=== PATIENT | female | born 1965 | race African-American/Black ===

== ENCOUNTER 2018-08-06 10:07 | Inpatient (IN) | payer OTHER ==
[2018-08-06 12:21] VITALS: BMI 22.8
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
[2018-08-06] MEDS ORDERED: chlordiazePOXIDE HCL 25 MG CAPSULE PO PRN (13:47)
[2018-08-06] MEDS ORDERED: MAGNESIUM CITRATE 300 ML BOTTLE PO PRN (13:48)
[2018-08-06] MEDS ORDERED: IBUPROFEN 400 MG TABLET (FP) PO PRN (13:48)
[2018-08-06] MEDS ORDERED: ACETAMINOPHEN 325 MG TABLET (FP) PO PRN ×2 (13:48)
[2018-08-06] MEDS ORDERED: MELATONIN 5 MG TABLETS PO PRN (13:48)
[2018-08-06] MEDS ORDERED: METHOCARBAMOL 500 MG TABLET PO PRN (13:48)
[2018-08-06] MEDS ORDERED: MAGNESIUM HYDROX 2400MG/30ML ORAL SUSPENSION 30 ML CUP PO PRN (13:48)
[2018-08-06] MEDS ORDERED: MENTHOL/PHENOL 1 EACH UD MM PRN (13:48)
[2018-08-06] MEDS ORDERED: ALBUTEROL SO4 8 GM HFA INHALER IH PRN (13:51)
[2018-08-06] MEDS: TIOTROPIUM BROMIDE 2.5 MCG (SPIRIVA) RESPIMAT INHALER IH SCH (15:11)
[2018-08-06] MEDS: NICOTINE 7 MG/24 HOURS TOPICAL PATCH TD SCH (15:15)
[2018-08-06] MEDS: NICOTINE POLACRILEX 2 MG GUM BUC PRN (16:44)
[2018-08-06 18:35] LABS: HEMATOCRIT 40.1 % (32.4-45.2); HEMOGLOBIN 13.2 GM/dL (10.7-15.3); MCH 28.9 pg (25.7-33.7); MCHC 32.9 g/dl (32.0-36.0); MEAN CELL VOLUME 87.9 fl (80-96); MEAN PLT VOLUME 7.6 fl (7.5-11.1); PLATELET COUNT 388 K/MM3 (134-434); RBC 4.57 M/mm3 (3.60-5.2); RDW 14.6 % (11.6-15.6); WHITE BLOOD COUNT 8.6 K/mm3 (4.0-10.0)
[2018-08-06 18:42] LABS: ALBUMIN 4.2 g/dl (3.4-5.0); BILIRUBIN,TOTAL 0.7 mg/dL (0.2-1); BLOOD UREA NITROGEN 17.4 mg/dL (7-18); CALCIUM 9.4 mg/dL (8.5-10.1); CREATININE 0.8 mg/dL (0.55-1.3); POTASSIUM 4.4 mmol/L (3.5-5.1); TOT PROT 8.1 g/dl (6.4-8.2)
[2018-08-06 18:55] LABS: EPI CELLS 13.1 /HPF (0-5/HPF); HYALINE CASTS 12 /lpf (0-8); URINE APPEARANCE TURBID; URINE BILIRUBIN NEGATIVE (NEGATIVE); URINE COLOR YELLOW; URINE GLUCOSE (UA) NEGATIVE (NEGATIVE); URINE KETONE NEGATIVE (NEGATIVE); URINE LEUK ESTERASE NEGATIVE (NEGATIVE); URINE NITRITE NEGATIVE (NEGATIVE); URINE PROTEIN NEGATIVE (NEGATIVE); URINE UROBILINOGEN 0.2 mg/dL (0.2-1.0)
[2018-08-06 19:52] LABS: URINE RBC 4.2 /hpf (0-4); URINE WBC 10.2 /hpf (0-5)
[2018-08-06 19:53] LABS: URINE CRYSTALS AMORPHOUS URATES /hpf
[2018-08-06] MEDS: chlordiazePOXIDE HCL 25 MG CAPSULE PO SCH (22:31)
[2018-08-06] MEDS: THIAMINE HCL 100 MG TABLET (FP) PO SCH (22:31)
[2018-08-07] MEDS: chlordiazePOXIDE HCL 25 MG CAPSULE PO SCH ×4 (05:32→22:22)
[2018-08-07] MEDS ORDERED: ONDANSETRON *ODT* 4 MG TABLET SL PRN (09:44)
[2018-08-07] MEDS: NICOTINE 7 MG/24 HOURS TOPICAL PATCH TD SCH (10:28)
[2018-08-07] MEDS: PRENATAL VITAMINS W/ FOLIC ACID TABLET (FP) PO SCH (10:28)
[2018-08-07] MEDS: TIOTROPIUM BROMIDE 2.5 MCG (SPIRIVA) RESPIMAT INHALER IH SCH (10:28)
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
--- NOTE | 2018-08-07 11:39 | PN ---
[facility] CIWA - CIWA Score Nausea/Vomitin-No Nausea/No Vomiting Muscle Tremors: 3 Anxiety: 3 Agitation: 3 Paroxysmal Sweats: 3 Orientation: 0-Oriented Tacttile Disturbances: 0-None Auditory Disturbances: 0-None Visual Disturbances: 0-None Headache: 0-None Present CIWA-Ar Total Score: 12 S Progress Note (SOAP) Subjective: agitation anxiety sweats nausea body aches interrupted sleep Objective: 08/07/18 11:37 Vital Signs Temperature 98.1 F 08/07/18 10:14 Pulse Rate 73 08/07/18 10:14 Respiratory Rate 16 08/07/18 10:14 Blood Pressure 92/65 08/07/18 10:14 O2 Sat by Pulse Oximetry (%) Laboratory Tests 08/06/18 08/06/18 08/06/18 14:00 14:00 14:00 WBC 8.6 RBC 4.57 Hgb 13.2 Hct 40.1 MCV 87.9 MCH 28.9 MCHC 32.9 RDW 14.6 Plt Count 388 MPV 7.6 Sodium 135 L Potassium 4.4 Chloride 102 Carbon Dioxide 28 Anion Gap 6 L BUN 17.4 Creatinine 0.8 Est GFR (CKD-EPI)AfAm 98.24 Est GFR (CKD-EPI)NonAf 84.76 Random Glucose 99 Calcium 9.4 Total Bilirubin 0.7 AST 44 H ALT 33 Alkaline Phosphatase 82 Total Protein 8.1 Albumin 4.2 Urine Color Urine Appearance Urine pH Ur Specific [place] Urine Protein Urine Glucose (UA) Urine Ketones Urine Blood Urine Nitrite Urine Bilirubin Urine Urobilinogen Ur Leukocyte Esterase Urine WBC (Auto) Urine RBC (Auto) Urine Casts (Auto) U Epithel Cells (Auto) Urine Crystals (Auto) Urine Bacteria (Auto) HIV 1&2 Antibody Screen Negative HIV P24 Antigen Negative 08/06/18 16:39 WBC RBC Hgb Hct MCV MCH MCHC RDW Plt Count MPV Sodium Potassium Chloride Carbon Dioxide Anion Gap BUN Creatinine Est GFR (CKD-EPI)AfAm Est GFR (CKD-EPI)NonAf Random Glucose Calcium Total Bilirubin AST ALT Alkaline Phosphatase Total Protein Albumin Urine Color Yellow Urine Appearance Turbid Urine pH 5.0 Ur Specific [place] 1.024 Urine Protein Negative Urine Glucose (UA) Negative Urine Ketones Negative Urine Blood Trace Urine Nitrite Negative Urine Bilirubin Negative Urine Urobilinogen 0.2 Ur Leukocyte Esterase Negative Urine WBC (Auto) 10.2 Urine RBC (Auto) 4.2 Urine Casts (Auto) 12 U Epithel Cells (Auto) 13.1 Urine Crystals (Auto) Amorphous urates Urine Bacteria (Auto) 388.0 HIV 1&2 Antibody Screen HIV P24 Antigen labs noted repeat u/a pt denies having a UTI aaox3 ambulating no acute distress Assessment: 08/07/18 11:38 withdrawal sx Plan: continue detox increase fluids repeat u/a
[2018-08-07] MEDS: CITALOPRAM HYDROBROMIDE 10 MG TABLET (FP) PO SCH (15:02)
[2018-08-07] MEDS: NICOTINE POLACRILEX 2 MG GUM BUC PRN (15:59)
[2018-08-07] MEDS: BISMUTH SUBSALICYLATE 262 MG/15 ML BTL PO PRN (17:44)
[2018-08-07] MEDS: risperiDONE 2 MG TABLET PO SCH (22:22)
[2018-08-07] MEDS: MELATONIN 5 MG TABLETS PO PRN (22:22)
[2018-08-07] MEDS: THIAMINE HCL 100 MG TABLET (FP) PO SCH (22:23)
[2018-08-08] MEDS: chlordiazePOXIDE HCL 25 MG CAPSULE PO SCH ×3 (05:32→17:32)
[2018-08-08] MEDS: NICOTINE 7 MG/24 HOURS TOPICAL PATCH TD SCH (10:26)
[2018-08-08] MEDS: PRENATAL VITAMINS W/ FOLIC ACID TABLET (FP) PO SCH (10:26)
[2018-08-08] MEDS: CITALOPRAM HYDROBROMIDE 10 MG TABLET (FP) PO SCH (10:26)
[2018-08-08] MEDS: TIOTROPIUM BROMIDE 2.5 MCG (SPIRIVA) RESPIMAT INHALER IH SCH (10:26)
[2018-08-08] MEDS ORDERED: TRIMETHOBENZAMIDE HCL 300 MG CAPSULE PO PRN (11:17)
--- NOTE | 2018-08-08 11:30 | PN ---
[facility] CIWA - CIWA Score Nausea/Vomitin-Mild Nausea/No Vomiting Muscle Tremors: 3 Anxiety: 2 Agitation: 2 Paroxysmal Sweats: 2 Orientation: 0-Oriented Tacttile Disturbances: 0-None Auditory Disturbances: 0-None Visual Disturbances: 0-None Headache: 0-None Present CIWA-Ar Total Score: 10 S Progress Note (SOAP) Subjective: nausea vomiting sweats Objective: 08/08/18 11:30 Vital Signs Temperature 97.7 F 08/08/18 10:02 Pulse Rate 74 08/08/18 10:02 Respiratory Rate 18 08/08/18 10:02 Blood Pressure 114/53 L 08/08/18 10:02 O2 Sat by Pulse Oximetry (%) Laboratory Tests 08/06/18 08/06/18 08/06/18 12:38 14:00 14:00 WBC 8.6 RBC 4.57 Hgb 13.2 Hct 40.1 MCV 87.9 MCH 28.9 MCHC 32.9 RDW 14.6 Plt Count 388 MPV 7.6 Sodium 135 L Potassium 4.4 Chloride 102 Carbon Dioxide 28 Anion Gap 6 L BUN 17.4 Creatinine 0.8 Est GFR (CKD-EPI)AfAm 98.24 Est GFR (CKD-EPI)NonAf 84.76 Random Glucose 99 Calcium 9.4 Total Bilirubin 0.7 AST 44 H ALT 33 Alkaline Phosphatase 82 Total Protein 8.1 Albumin 4.2 Urine Color Urine Appearance Urine pH Ur Specific [place] Urine Protein Urine Glucose (UA) Urine Ketones Urine Blood Urine Nitrite Urine Bilirubin Urine Urobilinogen Ur Leukocyte Esterase Urine WBC (Auto) Urine RBC (Auto) Urine Casts (Auto) U Epithel Cells (Auto) Urine Crystals (Auto) Urine Bacteria (Auto) POC Urine HCG, Qual Negative RPR Titer HIV 1&2 Antibody Screen HIV P24 Antigen 08/06/18 08/06/18 08/06/18 14:00 14:00 16:39 WBC RBC Hgb Hct MCV MCH MCHC RDW Plt Count MPV Sodium Potassium Chloride Carbon Dioxide Anion Gap BUN Creatinine Est GFR (CKD-EPI)AfAm Est GFR (CKD-EPI)NonAf Random Glucose Calcium Total Bilirubin AST ALT Alkaline Phosphatase Total Protein Albumin Urine Color Yellow Urine Appearance Turbid Urine pH 5.0 Ur Specific [place] 1.024 Urine Protein Negative Urine Glucose (UA) Negative Urine Ketones Negative Urine Blood Trace Urine Nitrite Negative Urine Bilirubin Negative Urine Urobilinogen 0.2 Ur Leukocyte Esterase Negative Urine WBC (Auto) 10.2 Urine RBC (Auto) 4.2 Urine Casts (Auto) 12 U Epithel Cells (Auto) 13.1 Urine Crystals (Auto) Amorphous urates Urine Bacteria (Auto) 388.0 POC Urine HCG, Qual RPR Titer Nonreactive HIV 1&2 Antibody Screen Negative HIV P24 Antigen Negative aaox3 ambulating no acute distress Assessment: 08/08/18 11:30 withdrawal sx Plan: continue detox increase fluids zofran d/c tigan po ordered
[2018-08-08] MEDS: hydrOXYzine PAMOATE 25 MG CAPSULE (FP) PO PRN (17:32)
[2018-08-08] MEDS: NICOTINE POLACRILEX 2 MG GUM BUC PRN (19:09)
[2018-08-08] MEDS: chlordiazePOXIDE HCL 10 MG CAPSULE PO SCH (22:32)
[2018-08-08] MEDS: risperiDONE 2 MG TABLET PO SCH (22:32)
[2018-08-08] MEDS: THIAMINE HCL 100 MG TABLET (FP) PO SCH (22:32)
[2018-08-08] MEDS: MELATONIN 5 MG TABLETS PO PRN (22:33)
[2018-08-08] MEDS ORDERED: chlordiazePOXIDE HCL 10 MG CAPSULE PO PRN (23:00)
[2018-08-09] MEDS: chlordiazePOXIDE HCL 10 MG CAPSULE PO SCH ×4 (06:23→22:24)
[2018-08-09] MEDS ORDERED: TRIMETHOBENZAMIDE HCL 200MG/2ML INJ IM PRN (09:45)
[2018-08-09] MEDS: CITALOPRAM HYDROBROMIDE 10 MG TABLET (FP) PO SCH (10:42)
[2018-08-09] MEDS: TIOTROPIUM BROMIDE 2.5 MCG (SPIRIVA) RESPIMAT INHALER IH SCH (10:42)
[2018-08-09] MEDS: NICOTINE 7 MG/24 HOURS TOPICAL PATCH TD SCH (10:42)
[2018-08-09] MEDS: PRENATAL VITAMINS W/ FOLIC ACID TABLET (FP) PO SCH (10:42)
[2018-08-09] MEDS: hydrOXYzine PAMOATE 25 MG CAPSULE (FP) PO PRN (10:47)
--- NOTE | 2018-08-09 12:13 | PN ---
[facility] CIWA - CIWA Score Nausea/Vomitin-Mild Nausea/No Vomiting Muscle Tremors: 2 Anxiety: 1-Mildly Anxious Agitation: 2 Paroxysmal Sweats: 2 Orientation: 0-Oriented Tacttile Disturbances: 0-None Auditory Disturbances: 0-None Visual Disturbances: 0-None Headache: 0-None Present CIWA-Ar Total Score: 8 [facility] Progress Note (SOAP) Subjective: nausea interrupted sleep Objective: 08/09/18 12:13 Vital Signs Temperature 97.9 F 08/09/18 09:22 Pulse Rate 74 08/09/18 09:22 Respiratory Rate 18 08/09/18 09:22 Blood Pressure 119/63 08/09/18 09:22 O2 Sat by Pulse Oximetry (%) aaox3 ambulating no acute distress Assessment: 08/09/18 12:14 mild withdrawal sx Plan: continue detox tigan IM ordered increase fluids
[2018-08-09] MEDS: risperiDONE 2 MG TABLET PO SCH (22:24)
[2018-08-09] MEDS: THIAMINE HCL 100 MG TABLET (FP) PO SCH (22:24)
[2018-08-09] MEDS: MELATONIN 5 MG TABLETS PO PRN (22:25)
[2018-08-09] MEDS: MAG HYDROX/AL HYDROX/SIMETH 30 ML UNIT-DOSE CUP PO PRN (22:26)
[2018-08-10 10:02] LABS: URINE APPEARANCE CLEAR; URINE BILIRUBIN NEGATIVE (NEGATIVE); URINE COLOR YELLOW; URINE GLUCOSE (UA) NEGATIVE (NEGATIVE); URINE KETONE NEGATIVE (NEGATIVE); URINE LEUK ESTERASE NEGATIVE (NEGATIVE); URINE NITRITE NEGATIVE (NEGATIVE); URINE PROTEIN NEGATIVE (NEGATIVE); URINE UROBILINOGEN 0.2 mg/dL (0.2-1.0)
[2018-08-10] MEDS: NICOTINE 7 MG/24 HOURS TOPICAL PATCH TD SCH (10:34)
[2018-08-10] MEDS: CITALOPRAM HYDROBROMIDE 10 MG TABLET (FP) PO SCH (10:35)
[2018-08-10] MEDS: TIOTROPIUM BROMIDE 2.5 MCG (SPIRIVA) RESPIMAT INHALER IH SCH (10:35)
[2018-08-10] MEDS: PRENATAL VITAMINS W/ FOLIC ACID TABLET (FP) PO SCH (10:35)
[2018-08-10] MEDS: chlordiazePOXIDE HCL 10 MG CAPSULE PO SCH ×2 (10:36→23:05)
--- NOTE | 2018-08-10 11:44 | PN ---
[facility] CIWA - CIWA Score Nausea/Vomitin-No Nausea/No Vomiting Muscle Tremors: 1-None Visible, but [place] Anxiety: 1-Mildly Anxious Agitation: 1-Slight > Activity Paroxysmal Sweats: No Perspiration Orientation: 0-Oriented Tacttile Disturbances: 0-None Auditory Disturbances: 0-None Visual Disturbances: 0-None Headache: 0-None Present CIWA-Ar Total Score: 3 BHS Progress Note (SOAP) Subjective: sweats Objective: 08/10/18 11:43 Vital Signs Temperature 99.0 F 08/10/18 09:56 Pulse Rate 87 08/10/18 09:56 Respiratory Rate 18 08/10/18 09:56 Blood Pressure 100/68 08/10/18 09:56 O2 Sat by Pulse Oximetry (%) aaox3 ambulating no acute distress Assessment: 08/10/18 11:44 mild withdrawal sx Plan: continue detox increase fluids d/c in am
[2018-08-10] MEDS: MAG HYDROX/AL HYDROX/SIMETH 30 ML UNIT-DOSE CUP PO PRN ×2 (15:35→22:20)
[2018-08-10] MEDS: BISMUTH SUBSALICYLATE 262 MG/15 ML BTL PO PRN (20:14)
[2018-08-10] MEDS: risperiDONE 2 MG TABLET PO SCH (21:33)
[2018-08-10] MEDS: MELATONIN 5 MG TABLETS PO PRN (21:33)
[2018-08-10] MEDS: THIAMINE HCL 100 MG TABLET (FP) PO SCH (23:05)
[2018-08-11 07:01] VITALS: BP 114/68; PULSE 74; TEMP 97.7
--- NOTE | 2018-08-11 12:02 | PN ---
[facility] CIWA - CIWA Score Nausea/Vomitin-No Nausea/No Vomiting Muscle Tremors: 1-None Visible, but [place] Anxiety: 1-Mildly Anxious Agitation: 0-Normal Activity Paroxysmal Sweats: No Perspiration Orientation: 0-Oriented Tacttile Disturbances: 0-None Auditory Disturbances: 0-None Visual Disturbances: 0-None Headache: 0-None Present CIWA-Ar Total Score: 2 BHS Progress Note (SOAP) Subjective: Denies any complaint Objective: 08/11/18 12:02 A & O x 3 Gait steady, no acute distress noted Vital Signs Temperature 97.7 F 08/11/18 06:00 Pulse Rate 74 08/11/18 06:00 Respiratory Rate 16 08/11/18 06:00 Blood Pressure 114/68 08/11/18 06:00 O2 Sat by Pulse Oximetry (%) Assessment: 08/11/18 12:03 completed detox Plan: For discharge
--- NOTE | 2018-08-11 12:06 | DS ---
[facility] Detox Discharge Summary Admission Date: 08/06/18 Discharge Date: 08/11/18 - History Additional Comments: Pt completed detox successfully. Going to [facility] for aftercare rehab Denies any complaints On psych meds only - Physical Exam Results Vital Signs: Vital Signs Temperature 97.7 F 08/11/18 06:00 Pulse Rate 74 08/11/18 06:00 Respiratory Rate 16 08/11/18 06:00 Blood Pressure 114/68 08/11/18 06:00 O2 Sat by Pulse Oximetry (%) Pertinent Admission Physical Exam Findings: withdrawal sx - Treatment Hospital Course: Detox Protocol Followed, Detoxed Safely, Responded well, Discharged Condition Good, Rehab Referral Accepted Patient has Accepted a Rehab Referral to: [facility] - Medication Discharge Medications: Ambulatory Orders Citalopram Hydrobromide [Celexa -] 10 mg PO DAILY 08/06/18 Risperidone [Risperdal] 2 mg PO HS 08/06/18 - AMA Did Patient Leave Against Medical Advice: No
== END 2018-08-11 09:16 | disposition home or self-care (01) | DRG 774 ==
LOC: YASAS 10:07 → Y6N 14:04
PROVIDERS: ADMIT Surgery; ATTEND Surgery
PROC: HZ2ZZZZ Detoxification Services for Substance Abuse Treatment (ICD-10-PCS; principal; 2018-08-06)
DX: F10.230 Alcohol dependence with withdrawal, uncomplicated (principal); F14.20 Cocaine dependence, uncomplicated; F17.210 Nicotine dependence, cigarettes, uncomplicated; F31.9 Bipolar disorder, unspecified; F19.280 Other psychoactive substance dependence with psychoactive substance-induced anxiety disorder; F19.282 Other psychoactive substance dependence with psychoactive substance-induced sleep disorder; K21.9 Gastro-esophageal reflux disease without esophagitis; J44.9 Chronic obstructive pulmonary disease, unspecified; D57.3 Sickle-cell trait; R76.11 Nonspecific reaction to tuberculin skin test without active tuberculosis; R63.4 Abnormal weight loss; Z86.69 Personal history of other diseases of the nervous system and sense organs; Z91.5 Personal history of self-harm
CPT/HCPCS: 36415; 71045-TC-FY; 80053; 81003; 81025; 85027; 86593; 87389; Q0162

== ENCOUNTER 2018-08-28 19:22 | Inpatient (IN) | payer OTHER ==
[2018-08-28 22:44] VITALS: BMI 24.3
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
[2018-08-29] MEDS ORDERED: BISMUTH SUBSALICYLATE 524 MG/30 ML UD PO PRN (03:15)
[2018-08-29] MEDS ORDERED: IBUPROFEN 400 MG TABLET (FP) PO PRN (03:15)
[2018-08-29] MEDS ORDERED: ACETAMINOPHEN 325 MG TABLET (FP) PO PRN ×2 (03:15)
[2018-08-29] MEDS ORDERED: MAGNESIUM CITRATE 300 ML BOTTLE PO PRN (03:15)
[2018-08-29] MEDS ORDERED: METHOCARBAMOL 500 MG TABLET PO PRN (03:15)
[2018-08-29] MEDS ORDERED: MAGNESIUM HYDROX 2400MG/30ML ORAL SUSPENSION 30 ML CUP PO PRN (03:15)
[2018-08-29] MEDS ORDERED: MENTHOL/PHENOL 1 EACH UD MM PRN (03:15)
[2018-08-29] MEDS ORDERED: chlordiazePOXIDE HCL 25 MG CAPSULE PO PRN (03:15)
[2018-08-29] MEDS ORDERED: hydrOXYzine PAMOATE 25 MG CAPSULE (FP) PO PRN (03:15)
[2018-08-29] MEDS ORDERED: MAG HYDROX/AL HYDROX/SIMETH 30 ML UNIT-DOSE CUP PO PRN (03:15)
[2018-08-29] MEDS: chlordiazePOXIDE HCL 25 MG CAPSULE PO SCH ×4 (04:10→22:30)
[2018-08-29] MEDS: PRENATAL VITAMINS W/ FOLIC ACID TABLET (FP) PO SCH (10:31)
[2018-08-29] MEDS ORDERED: PROCHLORPERAZINE MALEATE 5 MG TABLET PO PRN (14:43)
[2018-08-29] MEDS: CITALOPRAM HYDROBROMIDE 10 MG TABLET (FP) PO SCH (14:54)
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
--- NOTE | 2018-08-29 16:57 | PN ---
S CIWA - CIWA Score Nausea/Vomitin Muscle Tremors: None Anxiety: 2 Agitation: 0-Normal Activity Paroxysmal Sweats: 3 Orientation: 0-Oriented Tacttile Disturbances: 2-Mild Itch/Numbness/Burn Auditory Disturbances: 2-Mild Harshness/Frighten Visual Disturbances: 1-Very Mild Sensitivity Headache: 0-None Present CIWA-Ar Total Score: 15 BHS Progress Note (SOAP) Subjective: Body Aches, Sweating, Vomiting, Fatigue, Diarrhea. Objective: PATIENT A & O X 3. IN NO ACUTE DISTRESS. 08/29/18 16:54 Vital Signs Temperature 96.6 F L 08/29/18 13:50 Pulse Rate 72 08/29/18 13:50 Respiratory Rate 18 08/29/18 13:50 Blood Pressure 99/74 08/29/18 13:50 O2 Sat by Pulse Oximetry (%) Laboratory Tests 08/29/18 08:30 POC Urine HCG, Qual Negative DETOX ADMISSION LAB RESULTS PENDING. 08/29/18 16:55 Assessment: 08/29/18 16:55 WITHDRAWAL SYMPTOMS. Plan: CONTINUE DETOX. INCREASE DAILY PO WATER INTAKE. PRN COMPAZINE PO FOR NAUSEA / VOMITING. PRN PEPTO-BISMOL PO FOR DIARRHEA.
[2018-08-29] MEDS ORDERED: risperiDONE 2 MG TABLET PO SCH (22:00)
[2018-08-29] MEDS: risperiDONE 1 MG TABLET (FP) PO SCH (22:29)
[2018-08-29] MEDS: THIAMINE HCL 100 MG TABLET (FP) PO SCH (22:29)
[2018-08-29] MEDS: MELATONIN 5 MG TABLETS PO PRN (22:32)
[2018-08-30] MEDS: chlordiazePOXIDE HCL 25 MG CAPSULE PO SCH ×4 (06:41→23:48)
[2018-08-30] MEDS: risperiDONE 1 MG TABLET (FP) PO SCH ×2 (10:28→21:29)
[2018-08-30] MEDS: CITALOPRAM HYDROBROMIDE 10 MG TABLET (FP) PO SCH (10:28)
[2018-08-30] MEDS: PRENATAL VITAMINS W/ FOLIC ACID TABLET (FP) PO SCH (10:28)
--- NOTE | 2018-08-30 10:37 | EKG ---
Test Reason : Blood Pressure : / mmHG Vent. Rate : 068 BPM Atrial Rate : 068 BPM P-R Int : 172 ms QRS Dur : 090 ms QT Int : 450 ms P-R-T Axes : 067 067 070 degrees QTc Int : 478 ms NORMAL SINUS RHYTHM NO PREVIOUS ECGS AVAILABLE Confirmed by ASCENCION OLVERA MD ([id number]) on 08/30/2018 10:36:34 AM Referred By: EVELINA ANDREWS Confirmed By:ASCENCION OLVERA MD
--- NOTE | 2018-08-30 13:10 | PN ---
S CIWA - CIWA Score Nausea/Vomitin-Mild Nausea/No Vomiting Muscle Tremors: 3 Anxiety: 2 Agitation: 3 Paroxysmal Sweats: 1-Minimal Palms Moist Orientation: 0-Oriented Tacttile Disturbances: 0-None Auditory Disturbances: 0-None Visual Disturbances: 0-None Headache: 1-Very Mild CIWA-Ar Total Score: 11 BHS Progress Note (SOAP) Subjective: feeling better today tolerate food and fluid better today no vomiting mild nausea Objective: 08/30/18 13:10 Vital Signs Temperature 98.5 F 08/30/18 09:51 Pulse Rate 65 08/30/18 09:51 Respiratory Rate 18 08/30/18 09:51 Blood Pressure 96/66 08/30/18 09:51 O2 Sat by Pulse Oximetry (%) Laboratory Last Values POC Urine HCG, Qual Negative 08/29/18 08:30 08/30/18 13:10 lab see 07/201808/30/18 13:12 Assessment: 08/30/18 13:12 alcohol withdrawal sx Plan: continue alcohol detox
[2018-08-30] MEDS ORDERED: NICOTINE 7 MG/24 HOURS TOPICAL PATCH TD SCH (13:30)
[2018-08-30] MEDS: THIAMINE HCL 100 MG TABLET (FP) PO SCH (21:29)
[2018-08-30] MEDS: MELATONIN 5 MG TABLETS PO PRN (21:30)
[2018-08-31] MEDS ORDERED: chlordiazePOXIDE HCL 10 MG CAPSULE PO PRN
[2018-08-31] MEDS ORDERED: chlordiazePOXIDE HCL 10 MG CAPSULE PO SCH (05:00)
[2018-08-31 09:04] VITALS: BP 109/72; PULSE 69; TEMP 97.2
--- NOTE | 2018-08-31 18:29 | DS ---
[facility] Detox Discharge Summary Admission Date: 08/29/18 Discharge Date: 08/31/18 - History Present History: Alcohol Dependence, Cannabis Dependence, Cocaine Dependence Additional Comments: PATIENT RETURNING HOME TO ATTEND TO PERSONAL MATTERS FOR TIME BEING. PATIENT ADVISED TO CONSIDER LOCAL 12-STEP / NA / AA OUTPATIENT SUPPORT GROUP PROGRAMS FOR AFTERCARE. PATIENT VERBALIZED UNDERSTANDING OF RECOMMENDATION. PATIENT WAS DISCHARGED FROM DETOX UNIT IN STABLE MEDICAL CONDITION. Pertinent Past History: History Of Positive PPD, Nicotine Dependence, Depression, History Of Frost's Palsy, History Of Sickle Cell Trait, G.E.R.D., History Of Arthritis Of Right Knee, C.O.P.D., Bipolar Disorder, Insomnia. - Physical Exam Results Vital Signs: Vital Signs Temperature 97.2 F L 08/31/18 09:04 Pulse Rate 69 08/31/18 09:04 Respiratory Rate 18 08/31/18 09:04 Blood Pressure 109/72 08/31/18 09:04 O2 Sat by Pulse Oximetry (%) Pertinent Admission Physical Exam Findings: WITHDRAWAL SYMPTOMS. Laboratory Tests 08/29/18 08:30 POC Urine HCG, Qual Negative PATIENT REFUSED TO HAVE ADMISSION LABS DRAWN. - Treatment Hospital Course: Detox Protocol Followed, Detoxed Safely, Responded well, Discharged Condition Good Patient has Accepted a Rehab Referral to: PT. ADVISED TO CONSIDER LOCAL 12-STEP / NA / AA OUTPATIENT SUPPORT GROUPS. - Medication Discharge Medications: Ambulatory Orders Citalopram Hydrobromide [Celexa -] 10 mg PO DAILY 08/06/18 Risperidone [Risperdal] 2 mg PO HS 08/06/18 - Diagnosis (1) Alcohol dependence with uncomplicated withdrawal Status: Acute (2) COPD (chronic obstructive pulmonary disease) Status: Chronic Qualifiers: COPD type: unspecified COPD Qualified Code(s): J44.9 - Chronic obstructive pulmonary disease, unspecified (3) Cannabis dependence Status: Chronic (4) Cocaine dependence Status: Chronic Qualifiers: Substance use status: uncomplicated Qualified Code(s): F14.20 - Cocaine dependence, uncomplicated (5) Depression Status: Chronic Qualifiers: Depression Type: unspecified Qualified Code(s): F32.9 - Major depressive disorder, single episode, unspecified (6) GERD (gastroesophageal reflux disease) Status: Chronic Qualifiers: Esophagitis presence: esophagitis presence not specified Qualified Code(s) : K21.9 - Gastro-esophageal reflux disease without esophagitis (7) History of Frost's palsy Status: Chronic (8) Nicotine dependence Status: Chronic Qualifiers: Nicotine product type: cigarettes Substance use status: uncomplicated Qualified Code(s): F17.210 - Nicotine dependence, cigarettes, uncomplicated (9) PPD positive Status: Chronic (10) Sickle cell trait Status: Chronic (11) Bipolar disorder Status: Chronic Qualifiers: Active/Remission status: remission status unspecified Qualified Code(s): F31.9 - Bipolar disorder, unspecified (12) Insomnia Status: Chronic Qualifiers: Insomnia type: unspecified Qualified Code(s): G47.00 - Insomnia, unspecified (13) Substance induced mood disorder Status: Chronic - AMA Did Patient Leave Against Medical Advice: No
[2018-09-01] MEDS ORDERED: chlordiazePOXIDE HCL 10 MG CAPSULE PO SCH (05:00)
[2018-09-02] MEDS ORDERED: chlordiazePOXIDE HCL 10 MG CAPSULE PO ONE (05:00)
== END 2018-08-31 09:13 | disposition home or self-care (01) | DRG 774 ==
LOC: YASAS 19:22 → Y3N 08-29 03:15
PROVIDERS: ADMIT Surgery; ATTEND Surgery
PROC: HZ2ZZZZ Detoxification Services for Substance Abuse Treatment (ICD-10-PCS; principal; 2018-08-29)
DX: F10.230 Alcohol dependence with withdrawal, uncomplicated (principal); F14.20 Cocaine dependence, uncomplicated; F12.20 Cannabis dependence, uncomplicated; F17.210 Nicotine dependence, cigarettes, uncomplicated; F19.24 Other psychoactive substance dependence with psychoactive substance-induced mood disorder; F31.9 Bipolar disorder, unspecified; F32.9 Major depressive disorder, single episode, unspecified; G47.00 Insomnia, unspecified; J44.9 Chronic obstructive pulmonary disease, unspecified; K21.9 Gastro-esophageal reflux disease without esophagitis; D57.3 Sickle-cell trait; Z86.69 Personal history of other diseases of the nervous system and sense organs; Z91.5 Personal history of self-harm; Z88.0 Allergy status to penicillin
CPT/HCPCS: 81025; 93005; 93010; J2794

== ENCOUNTER 2018-10-30 09:49 | Inpatient (IN) | payer OTHER ==
[2018-10-30 12:02] VITALS: BMI 21.2
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
[2018-10-30] MEDS ORDERED: MENTHOL/PHENOL 1 EACH UD MM PRN (14:51)
[2018-10-30] MEDS ORDERED: MAGNESIUM CITRATE 300 ML BOTTLE PO PRN (14:51)
[2018-10-30] MEDS ORDERED: IBUPROFEN 400 MG TABLET (FP) PO PRN (14:51)
[2018-10-30] MEDS ORDERED: BISMUTH SUBSALICYLATE 524 MG/30 ML UD PO PRN (14:51)
[2018-10-30] MEDS ORDERED: MAGNESIUM HYDROX 2400MG/30ML ORAL SUSPENSION 30 ML CUP PO PRN (14:51)
[2018-10-30] MEDS ORDERED: ACETAMINOPHEN 325 MG TABLET (FP) PO PRN ×2 (14:51)
[2018-10-30] MEDS ORDERED: hydrOXYzine PAMOATE 25 MG CAPSULE (FP) PO PRN (14:51)
[2018-10-30] MEDS ORDERED: MAG HYDROX/AL HYDROX/SIMETH 30 ML UNIT-DOSE CUP PO PRN (14:51)
[2018-10-30] MEDS ORDERED: diazePAM 5 MG TABLET PO PRN (14:53)
[2018-10-30] MEDS: NICOTINE 7 MG/24 HOURS TOPICAL PATCH TD SCH (16:40)
[2018-10-30] MEDS: MELATONIN 5 MG TABLETS PO PRN (22:03)
[2018-10-30] MEDS: THIAMINE HCL 100 MG TABLET (FP) PO SCH (22:03)
[2018-10-30] MEDS: diazePAM 5 MG TABLET PO SCH (22:03)
[2018-10-31] MEDS: diazePAM 5 MG TABLET PO SCH (05:29)
[2018-10-31] MEDS: NICOTINE 7 MG/24 HOURS TOPICAL PATCH TD SCH (10:51)
[2018-10-31] MEDS: PRENATAL VITAMINS W/ FOLIC ACID TABLET (FP) PO SCH (10:52)
[2018-10-31] MEDS ORDERED: chlordiazePOXIDE HCL 25 MG CAPSULE PO PRN (11:56)
--- NOTE | 2018-10-31 12:01 | PN ---
[facility] CIWA - CIWA Score Nausea/Vomitin Muscle Tremors: 2 Anxiety: 3 Agitation: 3 Paroxysmal Sweats: 1-Minimal Palms Moist Orientation: 0-Oriented Tacttile Disturbances: 1-Very Mild Itch/Numbness Auditory Disturbances: 0-None Visual Disturbances: 0-None Headache: 1-Very Mild CIWA-Ar Total Score: 13 [facility] Progress Note (SOAP) Subjective: alert,irritabl,anxious,interrupted sleep,tremor Objective: 10/31/18 11:59 Vital Signs Temperature 97.8 F 10/31/18 09:19 Pulse Rate 71 10/31/18 09:19 Respiratory Rate 18 10/31/18 09:19 Blood Pressure 92/55 L 10/31/18 09:19 O2 Sat by Pulse Oximetry (%) 10/31/18 12:00 labs pending Assessment: 10/31/18 12:00 withdrawal symptom Plan: continue detox,regimen chnged from valum to librium by patient's request
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
[2018-10-31 12:27] LABS: HEMATOCRIT 38.3 % (32.4-45.2); HEMOGLOBIN 12.6 GM/dL (10.7-15.3); MEAN CELL VOLUME 87.8 fl (80-96); MEAN PLT VOLUME 7.4 fl (7.5-11.1); PLATELET COUNT 454 K/MM3 (134-434); RBC 4.36 M/mm3 (3.60-5.2); RDW 13.9 % (11.6-15.6)
[2018-10-31 12:37] LABS: ALBUMIN 3.3 g/dl (3.4-5.0); BILIRUBIN,TOTAL 0.3 mg/dL (0.2-1); BLOOD UREA NITROGEN 11.5 mg/dL (7-18); CREATININE 0.8 mg/dL (0.55-1.3); POTASSIUM 4.4 mmol/L (3.5-5.1); TOT PROT 6.6 g/dl (6.4-8.2)
[2018-10-31] MEDS: chlordiazePOXIDE HCL 25 MG CAPSULE PO SCH ×2 (17:25→22:17)
[2018-10-31] MEDS: risperiDONE 2 MG TABLET PO SCH (22:16)
[2018-10-31] MEDS: THIAMINE HCL 100 MG TABLET (FP) PO SCH (22:16)
[2018-10-31] MEDS: MELATONIN 5 MG TABLETS PO PRN (22:19)
[2018-11-01] MEDS: chlordiazePOXIDE HCL 25 MG CAPSULE PO SCH ×4 (05:59→22:35)
[2018-11-01] MEDS ORDERED: diazePAM 5 MG TABLET PO SCH (06:00)
[2018-11-01] MEDS: CITALOPRAM HYDROBROMIDE 10 MG TABLET (FP) PO SCH (10:18)
[2018-11-01] MEDS: PRENATAL VITAMINS W/ FOLIC ACID TABLET (FP) PO SCH (10:18)
[2018-11-01] MEDS: risperiDONE 1 MG TABLET (FP) PO SCH (10:18)
[2018-11-01] MEDS: NICOTINE 7 MG/24 HOURS TOPICAL PATCH TD SCH (10:19)
--- NOTE | 2018-11-01 12:22 | PN ---
[facility] CIWA - CIWA Score Nausea/Vomitin-Mild Nausea/No Vomiting Muscle Tremors: 1-None Visible, but [place] Anxiety: 3 Agitation: 3 Paroxysmal Sweats: No Perspiration Orientation: 0-Oriented Tacttile Disturbances: 0-None Auditory Disturbances: 0-None Visual Disturbances: 0-None Headache: 2-Mild CIWA-Ar Total Score: 10 S Progress Note (SOAP) Subjective: alert,irritable,anxious,interrupted sleep,pain in the bidy Objective: 11/01/18 12:20 Vital Signs Temperature 97.4 F L 11/01/18 09:43 Pulse Rate 64 11/01/18 09:43 Respiratory Rate 18 11/01/18 09:43 Blood Pressure 106/71 11/01/18 09:43 O2 Sat by Pulse Oximetry (%) Laboratory Last Values WBC 7.0 K/mm3 (4.0-10.0) 10/31/18 08:30 RBC 4.36 M/mm3 (3.60-5.2) 10/31/18 08:30 Hgb 12.6 GM/dL (10.7-15.3) 10/31/18 08:30 Hct 38.3 % (32.4-45.2) 10/31/18 08:30 MCV 87.8 fl (80-96) 10/31/18 08:30 MCH 29.0 pg (25.7-33.7) 10/31/18 08:30 MCHC 33.0 g/dl (32.0-36.0) 10/31/18 08:30 RDW 13.9 % (11.6-15.6) 10/31/18 08:30 Plt Count 454 K/MM3 (134-434) H 10/31/18 08:30 MPV 7.4 fl (7.5-11.1) L 10/31/18 08:30 Sodium 144 mmol/L (136-145) 10/31/18 08:30 Potassium 4.4 mmol/L (3.5-5.1) 10/31/18 08:30 Chloride 112 mmol/L (98-107) H 10/31/18 08:30 Carbon Dioxide 26 mmol/L (21-32) 10/31/18 08:30 Anion Gap 6 MMOL/L (8-16) L 10/31/18 08:30 BUN 11.5 mg/dL (7-18) 10/31/18 08:30 Creatinine 0.8 mg/dL (0.55-1.3) 10/31/18 08:30 Est GFR (CKD-EPI)AfAm 98.24 10/31/18 08:30 Est GFR (CKD-EPI)NonAf 84.76 10/31/18 08:30 Random Glucose 70 mg/dL (74-106) L 10/31/18 08:30 Calcium 9.0 mg/dL (8.5-10.1) 10/31/18 08:30 Total Bilirubin 0.3 mg/dL (0.2-1) 10/31/18 08:30 AST 18 U/L (15-37) 10/31/18 08:30 ALT 13 U/L (13-61) 10/31/18 08:30 Alkaline Phosphatase 73 U/L (45-117) 10/31/18 08:30 Total Protein 6.6 g/dl (6.4-8.2) 10/31/18 08:30 Albumin 3.3 g/dl (3.4-5.0) L 10/31/18 08:30 POC Urine HCG, Qual Negative 10/30/18 12:46 RPR Titer Nonreactive (NONREACTIVE) 10/31/18 08:30 Assessment: 11/01/18 12:21 withdrawal symptom Plan: continue detox librium regimen,psychiatric reevaluation for medication adjustment
--- NOTE | 2018-11-01 14:56 | PN ---
[facility] Progress Note Note: Psychiatric nurse practitioner note: Patient requesting an explanation as to why her psychotropic medications were not ordered at her original dose. Dr. Cervantes note read and appreciated. Patient made aware of the risk of falls and sedation when accepting certain types of psychotropic medications with Librium. Test Carrier informed patient that he can increase her risperdal dose to 3mg this evening/ Patient refused. Stated to publications writer, " no its ok. Now i know why my medications were lowered. it makes sense. You can keep it at what it is."
--- NOTE | 2018-11-01 17:48 | PN ---
Psychiatric Progress Note Vital Signs: Vital Signs Period Temp Pulse Resp BP Sys/Guevara Pulse Ox Last 24 Hr 96.8 F-99.4 F 58-74 16-18 95-114/68-80 Date of Session: 11/01/18 Chief Complaint:: " What happen to my monica." HPI: Patient admitted to for detoxification from alcohol, cocaine, cannabis , nicotine dependence. Patient concerned about her latuda medication. ROS: Patient calm and cooperative. Alert + Oriented X3. Current Medications: Active Medications Generic Name Dose Route Start Last Admin Trade Name Freq PRN Reason Stop Dose Admin Acetaminophen 650 mg 10/30/18 14:51 Tylenol - PO Q6H PRN PAIN LEVEL 4 - 6 Acetaminophen 650 mg 10/30/18 14:51 Tylenol - PO Q6H PRN FEVER Al Hydroxide/Mg Hydroxide 30 ml 10/30/18 14:51 Mylanta Oral Suspension - PO Q6H PRN DYSPEPSIA Bismuth Subsalicylate 524 mg 10/30/18 14:51 Pepto-Bismol - PO Q1H PRN DIARRHEA Chlordiazepoxide HCl 10 mg 11/03/18 05:00 Librium - PO 11/03/18 23:01 [id number] Chlordiazepoxide HCl 10 mg 11/04/18 05:00 Librium - PO 11/04/18 17:01 Q12H JIA Chlordiazepoxide HCl 10 mg 11/03/18 00:00 Librium - PO 11/04/18 00:00 Q4H PRN WITHDRAWAL(CONT SUBST) Chlordiazepoxide HCl 10 mg 11/05/18 05:00 Librium - PO 11/05/18 05:01 ONCE@0500 ONE Chlordiazepoxide HCl 50 mg 10/31/18 17:00 11/01/18 17:09 Librium - PO 11/01/18 23:01 50 mg [id number] JIA Administration Chlordiazepoxide HCl 25 mg 11/02/18 05:00 Librium - PO 11/02/18 23:01 [id number] JIA Chlordiazepoxide HCl 25 mg 10/31/18 11:56 Librium - PO 11/02/18 23:59 Q4H PRN WITHDRAWAL(CONT SUBST) Citalopram Hydrobromide 10 mg 11/01/18 10:00 11/01/18 10:18 Celexa - PO 10 mg DAILY JIA Administration Eucalyptus/Menthol/Phenol/Sorbitol 1 each 10/30/18 14:51 Cepastat Lozenge - MM 11/05/18 14:51 Q4H PRN SORE THROAT Hydroxyzine Pamoate 25 mg 10/30/18 14:51 Vistaril - PO 11/05/18 14:51 Q6H PRN For Anxiety Ibuprofen 400 mg 10/30/18 14:51 Motrin - PO Q6H PRN PAIN LEVEL 1 - 3 Magnesium Citrate 300 ml 10/30/18 14:51 Citroma - PO Q48H PRN CONSTIPATION Magnesium Hydroxide 30 ml 10/30/18 14:51 Milk Of Magnesia - PO PRN PRN CONSTIPATION Melatonin 5 mg 10/30/18 14:51 10/31/18 22:19 Melatonin PO 5 mg HS PRN Administration INSOMNIA Nicotine 7 mg 10/30/18 16:15 11/01/18 10:19 Nicoderm Patch - TD 7 mg DAILY JIA Administration Multivit/Folic Acid/Iron 1 tab 10/31/18 10:00 11/01/18 10:18 Vitamins (Sjr) - PO 1 tab DAILY JIA Administration Risperidone 2 mg 10/31/18 22:00 10/31/18 22:16 Risperdal - PO 2 mg HS JIA Administration Risperidone 1 mg 11/01/18 10:00 11/01/18 10:18 Risperdal - PO 1 mg DAILY JIA Administration Thiamine HCl 100 mg 10/30/18 22:00 10/31/18 22:16 Vitamin B1 - PO 100 mg HS JIA Administration Medication(s) Change(s): No. Current Side Effect: No Lab tests ordered: No Lab tests reviewed: Yes Provider note:: Patient requesting an explanation as to why latuda was not orderd. Dr. Cervantes note read and appreciated. Patient made aware of the risk of falls and sedation when accepting certain types of psychotropic medications with Librium. Director Of Sales Marketing informed patient that he can increase her risperdal dose to 3mg this evening and latuda can now be added as she has tolerated current medications with librium. Patient refused. Stated to bond underwriter, " no its ok. Now i know why my medications were lowered. it makes sense. You can keep it at what it is. I will resume my medications when i get home." No depressive, manic, or psychotic symptoms noted. Will continue to monitor. Total face to face time:: 15 Mental Status Exam - Mental Status Exam Alert and Oriented to: Time, Place, Person Cognitive Function: Good Patient Appearance: Well Groomed Mood: Euthymic Affect: Mood Congruent Patient Behavior: Cooperative Speech Pattern: Appropriate Voice Loudness: Normal Thought Process: Goal Oriented Thought Disorder: Not Present Hallucinations: Denies Suicidal Ideation: Denies Homicidal Ideation: Denies Insight/Judgement: Poor Sleep: Fair Appetite: Fair Muscle strength/Tone: Normal Gait/Station: Normal Psychiatric Treatment Plan - Problem List (1) Alcohol dependence with uncomplicated withdrawal Current Visit: Yes (2) Bipolar disorder Current Visit: Yes Qualifiers: Active/Remission status: remission status unspecified Qualified Code(s): F31.9 - Bipolar disorder, unspecified (3) Cannabis dependence Current Visit: Yes (4) Cocaine dependence Current Visit: Yes Qualifiers: Substance use status: uncomplicated Qualified Code(s): F14.20 - Cocaine dependence, uncomplicated (5) Insomnia Current Visit: Yes Qualifiers: Insomnia type: unspecified Qualified Code(s): G47.00 - Insomnia, unspecified Comment: By history. (6) Nicotine dependence Current Visit: Yes Qualifiers: Nicotine product type: cigarettes Substance use status: uncomplicated Qualified Code(s): F17.210 - Nicotine dependence, cigarettes, uncomplicated (7) Substance induced mood disorder Current Visit: Yes
[2018-11-01] MEDS: risperiDONE 2 MG TABLET PO SCH (22:10)
[2018-11-01] MEDS: THIAMINE HCL 100 MG TABLET (FP) PO SCH (22:10)
[2018-11-01] MEDS: MELATONIN 5 MG TABLETS PO PRN (22:10)
[2018-11-02] MEDS: chlordiazePOXIDE HCL 25 MG CAPSULE PO SCH ×2 (05:31→10:44)
[2018-11-02] MEDS ORDERED: diazePAM 5 MG TABLET PO ONE (06:00)
[2018-11-02] MEDS: risperiDONE 1 MG TABLET (FP) PO SCH (10:40)
[2018-11-02] MEDS: PRENATAL VITAMINS W/ FOLIC ACID TABLET (FP) PO SCH (10:40)
[2018-11-02] MEDS: NICOTINE 7 MG/24 HOURS TOPICAL PATCH TD SCH (10:43)
[2018-11-02] MEDS: CITALOPRAM HYDROBROMIDE 10 MG TABLET (FP) PO SCH (10:47)
--- NOTE | 2018-11-02 12:03 | PN ---
[facility] CIWA - CIWA Score Nausea/Vomitin-Mild Nausea/No Vomiting Muscle Tremors: 2 Anxiety: 2 Agitation: 2 Paroxysmal Sweats: No Perspiration Orientation: 0-Oriented Tacttile Disturbances: 0-None Auditory Disturbances: 0-None Visual Disturbances: 0-None Headache: 1-Very Mild CIWA-Ar Total Score: 8 S Progress Note (SOAP) Subjective: alert,irritable,anxious,interrupted sleep, Objective: 11/02/18 12:00 Vital Signs Temperature 97.2 F L 11/02/18 09:13 Pulse Rate 78 11/02/18 09:13 Respiratory Rate 20 11/02/18 09:13 Blood Pressure 92/64 11/02/18 09:13 O2 Sat by Pulse Oximetry (%) 11/02/18 12:00 Laboratory Last Values WBC 7.0 K/mm3 (4.0-10.0) 10/31/18 08:30 RBC 4.36 M/mm3 (3.60-5.2) 10/31/18 08:30 Hgb 12.6 GM/dL (10.7-15.3) 10/31/18 08:30 Hct 38.3 % (32.4-45.2) 10/31/18 08:30 MCV 87.8 fl (80-96) 10/31/18 08:30 MCH 29.0 pg (25.7-33.7) 10/31/18 08:30 MCHC 33.0 g/dl (32.0-36.0) 10/31/18 08:30 RDW 13.9 % (11.6-15.6) 10/31/18 08:30 Plt Count 454 K/MM3 (134-434) H 10/31/18 08:30 MPV 7.4 fl (7.5-11.1) L 10/31/18 08:30 Sodium 144 mmol/L (136-145) 10/31/18 08:30 Potassium 4.4 mmol/L (3.5-5.1) 10/31/18 08:30 Chloride 112 mmol/L (98-107) H 10/31/18 08:30 Carbon Dioxide 26 mmol/L (21-32) 10/31/18 08:30 Anion Gap 6 MMOL/L (8-16) L 10/31/18 08:30 BUN 11.5 mg/dL (7-18) 10/31/18 08:30 Creatinine 0.8 mg/dL (0.55-1.3) 10/31/18 08:30 Est GFR (CKD-EPI)AfAm 98.24 10/31/18 08:30 Est GFR (CKD-EPI)NonAf 84.76 10/31/18 08:30 Random Glucose 70 mg/dL (74-106) L 10/31/18 08:30 Calcium 9.0 mg/dL (8.5-10.1) 10/31/18 08:30 Total Bilirubin 0.3 mg/dL (0.2-1) 10/31/18 08:30 AST 18 U/L (15-37) 10/31/18 08:30 ALT 13 U/L (13-61) 10/31/18 08:30 Alkaline Phosphatase 73 U/L (45-117) 10/31/18 08:30 Total Protein 6.6 g/dl (6.4-8.2) 10/31/18 08:30 Albumin 3.3 g/dl (3.4-5.0) L 10/31/18 08:30 POC Urine HCG, Qual Negative 10/30/18 12:46 RPR Titer Nonreactive (NONREACTIVE) 10/31/18 08:30 Assessment: 11/02/18 12:01 withdrawal symptom Plan: continue detox,less withdrawal symptom,medication adjusted,to be discharged on monday11/04/18
[2018-11-02] MEDS ORDERED: chlordiazePOXIDE HCL 10 MG CAPSULE PO PRN (12:10)
--- NOTE | 2018-11-02 12:35 | PN ---
[facility] Progress Note Note: Psychiatry Attending's note : Patient came spontaneously to meet with MD. Issue at hand : dose of medications. Ms Jones is upset over not getting lurazidone. Also angry over the issue of reduced dose of risperdal. Crisis intervention conducted with medical students in attendance. With prior authorization (verbal) by the patient. Case discussed. Patient made aware of risk of polypharmacy + drug-drug interactions. In view of moderate hypotension, will continue to hold lurazidone. Will increase risperdal to 2 mg po am + hs. Done. Patient agrees to plan. Ms Jones responded well to negotiations.
[2018-11-02] MEDS: chlordiazePOXIDE HCL 10 MG CAPSULE PO SCH ×2 (16:55→22:27)
[2018-11-02] MEDS: THIAMINE HCL 100 MG TABLET (FP) PO SCH (22:26)
[2018-11-02] MEDS: risperiDONE 2 MG TABLET PO SCH (22:27)
[2018-11-02] MEDS: MELATONIN 5 MG TABLETS PO PRN (22:28)
[2018-11-03] MEDS ORDERED: chlordiazePOXIDE HCL 10 MG CAPSULE PO PRN
[2018-11-03] MEDS ORDERED: chlordiazePOXIDE HCL 10 MG CAPSULE PO SCH ×3 (05:00→10:00)
[2018-11-03] MEDS ORDERED: risperiDONE 2 MG TABLET PO SCH (10:00)
[2018-11-03] MEDS: PRENATAL VITAMINS W/ FOLIC ACID TABLET (FP) PO SCH (10:24)
[2018-11-03] MEDS: CITALOPRAM HYDROBROMIDE 10 MG TABLET (FP) PO SCH (10:24)
[2018-11-03] MEDS: NICOTINE 7 MG/24 HOURS TOPICAL PATCH TD SCH (10:25)
[2018-11-03 13:35] VITALS: BP 94/59; PULSE 78; TEMP 97.4
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
[2018-11-04] MEDS ORDERED: chlordiazePOXIDE HCL 10 MG CAPSULE PO SCH (05:00)
[2018-11-04] MEDS ORDERED: chlordiazePOXIDE HCL 10 MG CAPSULE PO ONE (05:00)
[2018-11-05] MEDS ORDERED: chlordiazePOXIDE HCL 10 MG CAPSULE PO PRN
[2018-11-05] MEDS ORDERED: chlordiazePOXIDE HCL 10 MG CAPSULE PO ONE (05:00)
[2018-11-06] MEDS ORDERED: chlordiazePOXIDE HCL 10 MG CAPSULE PO ONE (05:00)
== END 2018-11-03 14:15 | disposition left against medical advice (07) | DRG 770 ==
LOC: YASAS 09:49 → Y3N 15:53
PROVIDERS: ADMIT Surgery; ATTEND Surgery
PROC: HZ2ZZZZ Detoxification Services for Substance Abuse Treatment (ICD-10-PCS; principal; 2018-10-30)
DX: F10.230 Alcohol dependence with withdrawal, uncomplicated (principal); F14.20 Cocaine dependence, uncomplicated; F12.20 Cannabis dependence, uncomplicated; F17.210 Nicotine dependence, cigarettes, uncomplicated; F19.24 Other psychoactive substance dependence with psychoactive substance-induced mood disorder; F31.9 Bipolar disorder, unspecified; G47.00 Insomnia, unspecified; I69.354 Hemiplegia and hemiparesis following cerebral infarction affecting left non-dominant side; M17.11 Unilateral primary osteoarthritis, right knee; J44.9 Chronic obstructive pulmonary disease, unspecified; K21.9 Gastro-esophageal reflux disease without esophagitis; D57.3 Sickle-cell trait; Z91.5 Personal history of self-harm
CPT/HCPCS: 36415; 80053; 81025; 85027; 86593; J2794

== ENCOUNTER 2018-12-17 12:35 | Inpatient (IN) | payer OTHER ==
[2018-12-17 13:15] VITALS: BMI 21.9
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
--- NOTE | 2018-12-17 14:38 | PN ---
Teaching Attending Note Name of Resident: Arian Dial ATTENDING PHYSICIAN STATEMENT I saw and evaluated the patient. I reviewed the resident's note and discussed the case with the resident. I agree with the resident's findings and plan as documented. SUBJECTIVE: 53 yo with alcohol use disorder, last here in detox last month. Pt is homeless. OBJECTIVE: Vital Signs - 24 hr 12/17/18 13:02 Temperature 97.0 F L Pulse Rate 74 Respiratory 20 Rate Blood Pressure 115/78 ASSESSMENT AND PLAN: Alcohol use disorder- detox alcohol protocol
[2018-12-17] MEDS ORDERED: METHOCARBAMOL 500 MG TABLET PO PRN (14:41)
[2018-12-17] MEDS ORDERED: MAGNESIUM CITRATE 300 ML BOTTLE PO PRN (14:41)
[2018-12-17] MEDS ORDERED: MAGNESIUM HYDROX 2400MG/30ML ORAL SUSPENSION 30 ML CUP PO PRN (14:41)
[2018-12-17] MEDS ORDERED: chlordiazePOXIDE HCL 10 MG CAPSULE PO PRN (14:41)
[2018-12-17] MEDS ORDERED: MENTHOL/PHENOL 1 EACH UD MM PRN (14:41)
[2018-12-17] MEDS ORDERED: BISMUTH SUBSALICYLATE 524 MG/30 ML UD PO PRN (14:41)
[2018-12-17] MEDS ORDERED: IBUPROFEN 400 MG TABLET (FP) PO PRN (14:41)
[2018-12-17] MEDS ORDERED: hydrOXYzine PAMOATE 25 MG CAPSULE (FP) PO PRN (14:41)
[2018-12-17] MEDS ORDERED: MAG HYDROX/AL HYDROX/SIMETH 30 ML UNIT-DOSE CUP PO PRN (14:41)
[2018-12-17] MEDS ORDERED: ACETAMINOPHEN 325 MG TABLET (FP) PO PRN ×2 (14:41)
[2018-12-17 17:13] LABS: HEMATOCRIT 39.4 % (32.4-45.2); MCH 28.8 pg (25.7-33.7); MEAN CELL VOLUME 87.3 fl (80-96); MEAN PLT VOLUME 7.6 fl (7.5-11.1); PLATELET COUNT 440 K/MM3 (134-434); RBC 4.51 M/mm3 (3.60-5.2); RDW 14.5 % (11.6-15.6); WHITE BLOOD COUNT 7.2 K/mm3 (4.0-10.0)
[2018-12-17 17:27] LABS: BILIRUBIN,TOTAL 0.4 mg/dL (0.2-1); CALCIUM 9.2 mg/dL (8.5-10.1); CREATININE 0.8 mg/dL (0.55-1.3); POTASSIUM 3.8 mmol/L (3.5-5.1); TOT PROT 7.6 g/dl (6.4-8.2)
[2018-12-17] MEDS: chlordiazePOXIDE HCL 25 MG CAPSULE PO SCH (22:24)
[2018-12-17] MEDS: THIAMINE HCL 100 MG TABLET (FP) PO SCH (22:24)
[2018-12-17] MEDS: MELATONIN 5 MG TABLETS PO PRN (22:25)
[2018-12-18] MEDS: chlordiazePOXIDE HCL 25 MG CAPSULE PO SCH ×3 (06:04→22:36)
[2018-12-18] MEDS: PRENATAL VITAMINS W/ FOLIC ACID TABLET (FP) PO SCH (10:35)
[2018-12-18] MEDS ORDERED: ONDANSETRON *ODT* 4 MG TABLET SL ONE (10:53)
--- NOTE | 2018-12-18 10:59 | PN ---
S CIWA - CIWA Score Nausea/Vomitin Muscle Tremors: 4-Moderate,w/Arms Extend Anxiety: 3 Agitation: 2 Paroxysmal Sweats: 1-Minimal Palms Moist Orientation: 1-Uncertain about Date (date of the week) Tacttile Disturbances: 0-None Auditory Disturbances: 0-None Visual Disturbances: 0-None Headache: 0-None Present CIWA-Ar Total Score: 13 BHS Progress Note (SOAP) Subjective: vomited x 1 after breakfast zofran 4 mg sl x 1 zantac 150 mg po bid Objective: 12/18/18 10:56 Vital Signs Temperature 96.7 F L 12/18/18 09:12 Pulse Rate 65 12/18/18 09:12 Respiratory Rate 18 12/18/18 09:12 Blood Pressure 101/72 12/18/18 09:12 O2 Sat by Pulse Oximetry (%) Laboratory Last Values WBC 7.2 K/mm3 (4.0-10.0) 12/17/18 14:50 RBC 4.51 M/mm3 (3.60-5.2) 12/17/18 14:50 Hgb 13.0 GM/dL (10.7-15.3) 12/17/18 14:50 Hct 39.4 % (32.4-45.2) 12/17/18 14:50 MCV 87.3 fl (80-96) 12/17/18 14:50 MCH 28.8 pg (25.7-33.7) 12/17/18 14:50 MCHC 33.0 g/dl (32.0-36.0) 12/17/18 14:50 RDW 14.5 % (11.6-15.6) 12/17/18 14:50 Plt Count 440 K/MM3 (134-434) H 12/17/18 14:50 MPV 7.6 fl (7.5-11.1) 12/17/18 14:50 Sodium 142 mmol/L (136-145) 12/17/18 14:50 Potassium 3.8 mmol/L (3.5-5.1) 12/17/18 14:50 Chloride 106 mmol/L (98-107) 12/17/18 14:50 Carbon Dioxide 27 mmol/L (21-32) 12/17/18 14:50 Anion Gap 9 MMOL/L (8-16) 12/17/18 14:50 BUN 10.0 mg/dL (7-18) 12/17/18 14:50 Creatinine 0.8 mg/dL (0.55-1.3) 12/17/18 14:50 Est GFR (CKD-EPI)AfAm 98.24 12/17/18 14:50 Est GFR (CKD-EPI)NonAf 84.76 12/17/18 14:50 Random Glucose 121 mg/dL (74-106) H 12/17/18 14:50 Calcium 9.2 mg/dL (8.5-10.1) 12/17/18 14:50 Total Bilirubin 0.4 mg/dL (0.2-1) 12/17/18 14:50 AST 15 U/L (15-37) 12/17/18 14:50 ALT 15 U/L (13-61) 12/17/18 14:50 Alkaline Phosphatase 68 U/L (45-117) 12/17/18 14:50 Total Protein 7.6 g/dl (6.4-8.2) 12/17/18 14:50 Albumin 4.0 g/dl (3.4-5.0) 12/17/18 14:50 POC Urine HCG, Qual Negative 12/17/18 13:34 RPR Titer Nonreactive (NONREACTIVE) 12/17/18 14:50 lab noted 12/18/18 10:57 glucose elevatin fasting glucose Assessment: 12/18/18 10:58 alcohol withdrawal sx Plan: continue librium detox regimen
[2018-12-18] MEDS ORDERED: RANITIDINE HCL 150 MG TABLET (FP) PO SCH (11:00)
[2018-12-18] MEDS: FAMOTIDINE 20 MG TABLET PO SCH ×2 (11:45→22:36)
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
[2018-12-18] MEDS: LURASIDONE HCL 40 MG TABLET PO SCH (13:18)
[2018-12-18] MEDS: CITALOPRAM HYDROBROMIDE 10 MG TABLET (FP) PO SCH (13:19)
[2018-12-18] MEDS: NICOTINE 7 MG/24 HOURS TOPICAL PATCH TD SCH (16:43)
[2018-12-18] MEDS ORDERED: risperiDONE 2 MG TABLET PO SCH (22:00)
[2018-12-18] MEDS: THIAMINE HCL 100 MG TABLET (FP) PO SCH (22:35)
[2018-12-18] MEDS: risperiDONE 1 MG TABLET (FP) PO SCH (22:36)
[2018-12-18] MEDS: MELATONIN 5 MG TABLETS PO PRN (22:36)
[2018-12-19] MEDS: chlordiazePOXIDE 5 MG CAPSULE PO SCH ×3 (05:36→21:52)
[2018-12-19] MEDS: FAMOTIDINE 20 MG TABLET PO SCH ×2 (09:41→21:52)
[2018-12-19] MEDS: LURASIDONE HCL 40 MG TABLET PO SCH (09:41)
[2018-12-19] MEDS: CITALOPRAM HYDROBROMIDE 10 MG TABLET (FP) PO SCH (09:41)
[2018-12-19] MEDS: PRENATAL VITAMINS W/ FOLIC ACID TABLET (FP) PO SCH (09:41)
[2018-12-19] MEDS: NICOTINE 7 MG/24 HOURS TOPICAL PATCH TD SCH (09:42)
--- NOTE | 2018-12-19 11:44 | PN ---
[facility] CIWA - CIWA Score Nausea/Vomitin-Mild Nausea/No Vomiting Muscle Tremors: 2 Anxiety: 3 Agitation: 2 Paroxysmal Sweats: 1-Minimal Palms Moist Orientation: 0-Oriented Tacttile Disturbances: 0-None Auditory Disturbances: 0-None Visual Disturbances: 0-None Headache: 0-None Present CIWA-Ar Total Score: 9 S Progress Note (SOAP) Subjective: doing well with librium detox regimen ambulating on hallway discuss aftercare with staff Objective: 12/19/18 11:48 Vital Signs Temperature 96.7 F L 12/19/18 09:16 Pulse Rate 55 L 12/19/18 09:16 Respiratory Rate 18 12/19/18 09:16 Blood Pressure 108/76 12/19/18 09:16 O2 Sat by Pulse Oximetry (%) Laboratory Last Values WBC 7.2 K/mm3 (4.0-10.0) 12/17/18 14:50 RBC 4.51 M/mm3 (3.60-5.2) 12/17/18 14:50 Hgb 13.0 GM/dL (10.7-15.3) 12/17/18 14:50 Hct 39.4 % (32.4-45.2) 12/17/18 14:50 MCV 87.3 fl (80-96) 12/17/18 14:50 MCH 28.8 pg (25.7-33.7) 12/17/18 14:50 MCHC 33.0 g/dl (32.0-36.0) 12/17/18 14:50 RDW 14.5 % (11.6-15.6) 12/17/18 14:50 Plt Count 440 K/MM3 (134-434) H 12/17/18 14:50 MPV 7.6 fl (7.5-11.1) 12/17/18 14:50 Sodium 142 mmol/L (136-145) 12/17/18 14:50 Potassium 3.8 mmol/L (3.5-5.1) 12/17/18 14:50 Chloride 106 mmol/L (98-107) 12/17/18 14:50 Carbon Dioxide 27 mmol/L (21-32) 12/17/18 14:50 Anion Gap 9 MMOL/L (8-16) 12/17/18 14:50 BUN 10.0 mg/dL (7-18) 12/17/18 14:50 Creatinine 0.8 mg/dL (0.55-1.3) 12/17/18 14:50 Est GFR (CKD-EPI)AfAm 98.24 12/17/18 14:50 Est GFR (CKD-EPI)NonAf 84.76 12/17/18 14:50 Random Glucose 121 mg/dL (74-106) H 12/17/18 14:50 Calcium 9.2 mg/dL (8.5-10.1) 12/17/18 14:50 Total Bilirubin 0.4 mg/dL (0.2-1) 12/17/18 14:50 AST 15 U/L (15-37) 12/17/18 14:50 ALT 15 U/L (13-61) 12/17/18 14:50 Alkaline Phosphatase 68 U/L (45-117) 12/17/18 14:50 Total Protein 7.6 g/dl (6.4-8.2) 12/17/18 14:50 Albumin 4.0 g/dl (3.4-5.0) 12/17/18 14:50 POC Urine HCG, Qual Negative 12/17/18 13:34 RPR Titer Nonreactive (NONREACTIVE) 12/17/18 14:50 lab noted Assessment: 12/19/18 11:49 alcohol withdrawal sx Plan: continue librium detox regimen
[2018-12-19] MEDS: THIAMINE HCL 100 MG TABLET (FP) PO SCH (21:51)
[2018-12-19] MEDS: risperiDONE 1 MG TABLET (FP) PO SCH (21:52)
[2018-12-19] MEDS: MELATONIN 5 MG TABLETS PO PRN (21:53)
[2018-12-20] MEDS ORDERED: chlordiazePOXIDE HCL 10 MG CAPSULE PO PRN
[2018-12-20] MEDS: chlordiazePOXIDE HCL 10 MG CAPSULE PO SCH ×3 (05:47→21:26)
--- NOTE | 2018-12-20 09:31 | PN ---
S CIWA - CIWA Score Nausea/Vomitin-No Nausea/No Vomiting Muscle Tremors: 2 Anxiety: 2 Agitation: 2 Paroxysmal Sweats: No Perspiration Orientation: 0-Oriented Tacttile Disturbances: 0-None Auditory Disturbances: 0-None Visual Disturbances: 0-None Headache: 0-None Present CIWA-Ar Total Score: 6 BHS Progress Note (SOAP) Subjective: doing well with librium detox regimen feeling better with latuda risperidal and citalopram tolerate well Objective: 12/20/18 09:31 Vital Signs Temperature 97.1 F L 12/20/18 06:23 Pulse Rate 55 L 12/20/18 06:23 Respiratory Rate 18 12/20/18 06:23 Blood Pressure 116/73 12/20/18 06:23 O2 Sat by Pulse Oximetry (%) Laboratory Last Values WBC 7.2 K/mm3 (4.0-10.0) 12/17/18 14:50 RBC 4.51 M/mm3 (3.60-5.2) 12/17/18 14:50 Hgb 13.0 GM/dL (10.7-15.3) 12/17/18 14:50 Hct 39.4 % (32.4-45.2) 12/17/18 14:50 MCV 87.3 fl (80-96) 12/17/18 14:50 MCH 28.8 pg (25.7-33.7) 12/17/18 14:50 MCHC 33.0 g/dl (32.0-36.0) 12/17/18 14:50 RDW 14.5 % (11.6-15.6) 12/17/18 14:50 Plt Count 440 K/MM3 (134-434) H 12/17/18 14:50 MPV 7.6 fl (7.5-11.1) 12/17/18 14:50 Sodium 142 mmol/L (136-145) 12/17/18 14:50 Potassium 3.8 mmol/L (3.5-5.1) 12/17/18 14:50 Chloride 106 mmol/L (98-107) 12/17/18 14:50 Carbon Dioxide 27 mmol/L (21-32) 12/17/18 14:50 Anion Gap 9 MMOL/L (8-16) 12/17/18 14:50 BUN 10.0 mg/dL (7-18) 12/17/18 14:50 Creatinine 0.8 mg/dL (0.55-1.3) 12/17/18 14:50 Est GFR (CKD-EPI)AfAm 98.24 12/17/18 14:50 Est GFR (CKD-EPI)NonAf 84.76 12/17/18 14:50 Random Glucose 121 mg/dL (74-106) H 12/17/18 14:50 Calcium 9.2 mg/dL (8.5-10.1) 12/17/18 14:50 Total Bilirubin 0.4 mg/dL (0.2-1) 12/17/18 14:50 AST 15 U/L (15-37) 12/17/18 14:50 ALT 15 U/L (13-61) 12/17/18 14:50 Alkaline Phosphatase 68 U/L (45-117) 12/17/18 14:50 Total Protein 7.6 g/dl (6.4-8.2) 12/17/18 14:50 Albumin 4.0 g/dl (3.4-5.0) 12/17/18 14:50 POC Urine HCG, Qual Negative 12/17/18 13:34 RPR Titer Nonreactive (NONREACTIVE) 12/17/18 14:50 lab noted fasting glucose pending Assessment: 12/20/18 09:34 alcohol withdrawal sx Plan: continue librium detox regimen
[2018-12-20] MEDS: CITALOPRAM HYDROBROMIDE 10 MG TABLET (FP) PO SCH (10:35)
[2018-12-20] MEDS: PRENATAL VITAMINS W/ FOLIC ACID TABLET (FP) PO SCH (10:35)
[2018-12-20] MEDS: LURASIDONE HCL 40 MG TABLET PO SCH (10:35)
[2018-12-20] MEDS: NICOTINE 7 MG/24 HOURS TOPICAL PATCH TD SCH (10:36)
[2018-12-20] MEDS: FAMOTIDINE 20 MG TABLET PO SCH ×2 (10:36→21:27)
[2018-12-20] MEDS ORDERED: NICOTINE 7 MG/24 HOURS TOPICAL PATCH TD SCH (10:58)
[2018-12-20] MEDS: THIAMINE HCL 100 MG TABLET (FP) PO SCH (21:26)
[2018-12-20] MEDS: risperiDONE 1 MG TABLET (FP) PO SCH (21:26)
[2018-12-20] MEDS: MELATONIN 5 MG TABLETS PO PRN (21:27)
[2018-12-21] MEDS ORDERED: chlordiazePOXIDE HCL 10 MG CAPSULE PO ONE (05:00)
[2018-12-21 09:22] VITALS: BP 92/64; PULSE 87; TEMP 98.7
[2018-12-21] MEDS: LURASIDONE HCL 40 MG TABLET PO SCH (09:55)
[2018-12-21] MEDS: FAMOTIDINE 20 MG TABLET PO SCH (09:56)
[2018-12-21] MEDS: CITALOPRAM HYDROBROMIDE 10 MG TABLET (FP) PO SCH (09:56)
[2018-12-21] MEDS: PRENATAL VITAMINS W/ FOLIC ACID TABLET (FP) PO SCH (09:56)
--- NOTE | 2018-12-21 11:51 | DS ---
[facility] Detox Discharge Summary Admission Date: 12/17/18 Discharge Date: 12/21/18 - History Present History: Alcohol Dependence, Cannabis Dependence, Cocaine Dependence Additional Comments: PATIENT GOING TO [facility] ([place], [place]) FOR AFTERCARE. PATIENT WAS DISCHARGED FROM DETOX UNIT TO BE TAKEN OVER TO REHAB UNIT IN STABLE MEDICAL CONDITION. Pertinent Past History: History of Frost's Palsy, History of G.E.R.D., History Of Depression, C.O.P.D., History of Bipolar Disorder, Nicotine Dependence, Insomnia. - Physical Exam Results Vital Signs: Vital Signs Temperature 98.7 F 12/21/18 09:22 Pulse Rate 87 12/21/18 09:22 Respiratory Rate 18 12/21/18 09:22 Blood Pressure 92/64 12/21/18 09:22 O2 Sat by Pulse Oximetry (%) Pertinent Admission Physical Exam Findings: WITHDRAWAL SYMPTOMS. Laboratory Tests 12/17/18 12/17/18 12/17/18 13:34 14:50 14:50 WBC 7.2 RBC 4.51 Hgb 13.0 Hct 39.4 MCV 87.3 MCH 28.8 MCHC 33.0 RDW 14.5 Plt Count 440 H MPV 7.6 Sodium 142 Potassium 3.8 Chloride 106 Carbon Dioxide 27 Anion Gap 9 BUN 10.0 Creatinine 0.8 Est GFR (CKD-EPI)AfAm 98.24 Est GFR (CKD-EPI)NonAf 84.76 Random Glucose 121 H Fasting Glucose Calcium 9.2 Total Bilirubin 0.4 AST 15 ALT 15 Alkaline Phosphatase 68 Total Protein 7.6 Albumin 4.0 POC Urine HCG, Qual Negative RPR Titer 12/17/18 12/20/18 14:50 08:15 WBC RBC Hgb Hct MCV MCH MCHC RDW Plt Count MPV Sodium Potassium Chloride Carbon Dioxide Anion Gap BUN Creatinine Est GFR (CKD-EPI)AfAm Est GFR (CKD-EPI)NonAf Random Glucose Fasting Glucose 67 L Calcium Total Bilirubin AST ALT Alkaline Phosphatase Total Protein Albumin POC Urine HCG, Qual RPR Titer Nonreactive LABS NOTED. - Treatment Hospital Course: Detox Protocol Followed, Detoxed Safely, Responded well, Discharged Condition Good, Rehab Referral Accepted Patient has Accepted a Rehab Referral to: [facility] ([place], [place]). - Medication Discharge Medications: Ambulatory Orders Citalopram Hydrobromide [Celexa -] 10 mg PO DAILY 08/06/18 Lurasidone HCl [Latuda] 40 tab PO DAILY 10/30/18 Risperidone [Risperdal] 1 mg PO HS 12/21/18 - Diagnosis (1) Alcohol dependence with uncomplicated withdrawal Status: Acute (2) Bipolar 1 disorder Status: Acute (3) Substance-induced anxiety disorder Status: Acute (4) Substance-induced sleep disorder Status: Acute (5) Bipolar II disorder Status: Chronic (6) COPD (chronic obstructive pulmonary disease) Status: Chronic Qualifiers: COPD type: unspecified COPD Qualified Code(s): J44.9 - Chronic obstructive pulmonary disease, unspecified (7) Cannabis dependence Status: Chronic (8) Cocaine dependence Status: Chronic Qualifiers: Substance use status: uncomplicated Qualified Code(s): F14.20 - Cocaine dependence, uncomplicated (9) Depression Status: Chronic Qualifiers: Depression Type: unspecified Qualified Code(s): F32.9 - Major depressive disorder, single episode, unspecified (10) Insomnia Status: Chronic Qualifiers: Insomnia type: unspecified Qualified Code(s): G47.00 - Insomnia, unspecified (11) Nicotine dependence Status: Chronic Qualifiers: Nicotine product type: cigarettes Substance use status: uncomplicated Qualified Code(s): F17.210 - Nicotine dependence, cigarettes, uncomplicated (12) Substance induced mood disorder Status: Chronic - AMA Did Patient Leave Against Medical Advice: No
== END 2018-12-21 10:55 | disposition other institution (70) | DRG 774 ==
LOC: YASAS 12:35 → Y3N 15:31
PROVIDERS: ADMIT Allergy & Immunology; ATTEND Allergy & Immunology
PROC: HZ2ZZZZ Detoxification Services for Substance Abuse Treatment (ICD-10-PCS; principal; 2018-12-17)
DX: F10.230 Alcohol dependence with withdrawal, uncomplicated (principal); F14.20 Cocaine dependence, uncomplicated; F12.20 Cannabis dependence, uncomplicated; F17.210 Nicotine dependence, cigarettes, uncomplicated; F31.81 Bipolar II disorder; F31.9 Bipolar disorder, unspecified; F19.280 Other psychoactive substance dependence with psychoactive substance-induced anxiety disorder; F19.282 Other psychoactive substance dependence with psychoactive substance-induced sleep disorder; F19.24 Other psychoactive substance dependence with psychoactive substance-induced mood disorder; K21.9 Gastro-esophageal reflux disease without esophagitis; J44.9 Chronic obstructive pulmonary disease, unspecified; D57.3 Sickle-cell trait; G47.00 Insomnia, unspecified; Z86.69 Personal history of other diseases of the nervous system and sense organs; Z88.8 Allergy status to other drugs, medicaments and biological substances; Z91.5 Personal history of self-harm
CPT/HCPCS: 36415; 80053; 81025; 82947; 85027; 86593; J2794; Q0162

== ENCOUNTER 2018-12-21 10:48 | Inpatient (IN) | payer OTHER ==
[2018-12-21] MEDS ORDERED: MAGNESIUM CITRATE 300 ML BOTTLE PO PRN (12:13)
[2018-12-21] MEDS ORDERED: LOPERAMIDE HCL 2 MG CAPSULE PO PRN (12:13)
[2018-12-21] MEDS ORDERED: P-EPHED 60MG/TRIPROLIDI 2.5MG TABLET PO PRN (12:13)
[2018-12-21] MEDS ORDERED: MENTHOL/PHENOL 1 EACH UD MM PRN (12:13)
[2018-12-21] MEDS ORDERED: guaiFENesin 200 MG/10 ML 10 ML UNIT-DOSE CUPS PO PRN (12:13)
[2018-12-21] MEDS ORDERED: MAG HYDROX/AL HYDROX/SIMETH 30 ML UNIT-DOSE CUP PO PRN (12:13)
--- NOTE | 2018-12-21 12:21 | HP ---
[facility] Rehab Assess/Revision - Admission History Admitted to Rehab from: [facility] Date of Admission to Rehab: 12/21/2018 - Vital signs Vital Signs: Vital Signs Period Temp Pulse Resp BP Sys/Guevara Pulse Ox Last 24 Hr 98.2 F 65 17 97/60 - Findings Detox History & Physical reviewed: Yes Concur with findings: Yes Comments/Additional Findings: PATIENT'S MEDICAL / MEDICATION HISTORY REVIEWED PRIOR TO DISCHARGE FROM DETOX UNIT. PATIENT WAS DISCHARGED FROM DETOX UNIT TO BE TAKEN OVER TO REHAB UNIT IN STABLE MEDICAL CONDITION. Inpatient Rehab Admission - Rehab Decision to Admit Inpatient rehab admission?: Yes - Initial Determination Are CD services needed?: Yes Free of communicable disease: Yes Not in need of hospitalization: Yes - Rehab Admission Criteria Previous failed treatment: Yes Poor recovery environment: Yes Comorbidities: Yes Lacks judgement: Yes Patient is meeting Inpatient Rehab admission criteria:: Yes
--- NOTE | 2018-12-21 18:16 | PN ---
S Progress Note Note: Psychiatry Attending's note : Medications reconciled and resumed. As : lurasidone 40 mg po hs risperdal 1 mg po hs prozac 10 mg po daily Continuity of care.
[2018-12-21] MEDS: risperiDONE 1 MG TABLET (FP) PO SCH (21:10)
[2018-12-21] MEDS ORDERED: PT OWN MED DRAWER 7, Y5N ONE (21:11)
[2018-12-21] MEDS: MELATONIN 5 MG TABLETS PO PRN (21:12)
[2018-12-21] MEDS: THIAMINE HCL 100 MG TABLET (FP) PO SCH (21:12)
[2018-12-21] MEDS: FAMOTIDINE 10 MG TABLET PO SCH (22:46)
[2018-12-22] MEDS ORDERED: LURASIDONE HCL 40 MG TABLET PO SCH (10:00)
[2018-12-22] MEDS ORDERED: NICOTINE 7 MG/24 HOURS TOPICAL PATCH TD SCH (10:00)
[2018-12-22] MEDS: CITALOPRAM HYDROBROMIDE 10 MG TABLET (FP) PO SCH (10:06)
[2018-12-22] MEDS: NICOTINE 14 MG/24 HOURS TOPICAL PATCH TD SCH (10:06)
[2018-12-22] MEDS: PRENATAL VITAMINS W/ FOLIC ACID TABLET (FP) PO SCH (10:06)
[2018-12-22] MEDS: LURASIDONE HCL 40 MG TABLET PO SCH (10:51)
[2018-12-22] MEDS: FAMOTIDINE 10 MG TABLET PO SCH ×2 (10:52→22:05)
[2018-12-22] MEDS ORDERED: PT OWN MED DRAWER 7, Y5N ONE ×2 (11:06→22:04)
[2018-12-22] MEDS: MELATONIN 5 MG TABLETS PO PRN (22:03)
[2018-12-22] MEDS: THIAMINE HCL 100 MG TABLET (FP) PO SCH (22:03)
[2018-12-22] MEDS: risperiDONE 1 MG TABLET (FP) PO SCH (22:03)
[2018-12-23] MEDS: FAMOTIDINE 10 MG TABLET PO SCH ×2 (10:08→21:52)
[2018-12-23] MEDS: LURASIDONE HCL 40 MG TABLET PO SCH (10:09)
[2018-12-23] MEDS: PRENATAL VITAMINS W/ FOLIC ACID TABLET (FP) PO SCH (10:09)
[2018-12-23] MEDS: NICOTINE 14 MG/24 HOURS TOPICAL PATCH TD SCH (10:09)
[2018-12-23] MEDS: CITALOPRAM HYDROBROMIDE 10 MG TABLET (FP) PO SCH (10:09)
[2018-12-23] MEDS: IBUPROFEN 400 MG TABLET (FP) PO PRN (16:27)
[2018-12-23] MEDS: MAGNESIUM HYDROX 2400MG/30ML ORAL SUSPENSION 30 ML CUP PO PRN (19:30)
[2018-12-23] MEDS: risperiDONE 1 MG TABLET (FP) PO SCH (21:51)
[2018-12-23] MEDS: MELATONIN 5 MG TABLETS PO PRN (21:51)
[2018-12-23] MEDS: THIAMINE HCL 100 MG TABLET (FP) PO SCH (21:51)
[2018-12-24] MEDS ORDERED: PT OWN MED DRAWER 7, Y5N ONE ×2 (09:16→21:49)
[2018-12-24] MEDS: FAMOTIDINE 10 MG TABLET PO SCH ×2 (10:14→21:49)
[2018-12-24] MEDS: CITALOPRAM HYDROBROMIDE 10 MG TABLET (FP) PO SCH (10:14)
[2018-12-24] MEDS: NICOTINE 14 MG/24 HOURS TOPICAL PATCH TD SCH (10:14)
[2018-12-24] MEDS: PRENATAL VITAMINS W/ FOLIC ACID TABLET (FP) PO SCH (10:14)
[2018-12-24] MEDS: LURASIDONE HCL 40 MG TABLET PO SCH (10:34)
[2018-12-24] MEDS: MAGNESIUM HYDROX 2400MG/30ML ORAL SUSPENSION 30 ML CUP PO PRN (11:33)
[2018-12-24] MEDS: THIAMINE HCL 100 MG TABLET (FP) PO SCH (21:47)
[2018-12-24] MEDS: MELATONIN 5 MG TABLETS PO PRN (21:48)
[2018-12-24] MEDS: risperiDONE 1 MG TABLET (FP) PO SCH (21:48)
[2018-12-25] MEDS: MAGNESIUM HYDROX 2400MG/30ML ORAL SUSPENSION 30 ML CUP PO PRN (07:23)
[2018-12-25] MEDS ORDERED: PT OWN MED DRAWER 7, Y5N ONE ×2 (08:57→19:37)
[2018-12-25] MEDS: FAMOTIDINE 10 MG TABLET PO SCH ×2 (10:32→21:53)
[2018-12-25] MEDS: NICOTINE 14 MG/24 HOURS TOPICAL PATCH TD SCH (10:32)
[2018-12-25] MEDS: LURASIDONE HCL 40 MG TABLET PO SCH (10:32)
[2018-12-25] MEDS: CITALOPRAM HYDROBROMIDE 10 MG TABLET (FP) PO SCH (10:33)
[2018-12-25] MEDS: PRENATAL VITAMINS W/ FOLIC ACID TABLET (FP) PO SCH (10:33)
[2018-12-25] MEDS: risperiDONE 1 MG TABLET (FP) PO SCH (21:53)
[2018-12-25] MEDS: DOCUSATE SODIUM 100 MG CAPSULE (FP) PO SCH (21:53)
[2018-12-25] MEDS: MELATONIN 5 MG TABLETS PO PRN (21:53)
[2018-12-25] MEDS: THIAMINE HCL 100 MG TABLET (FP) PO SCH (21:53)
[2018-12-26] MEDS ORDERED: PT OWN MED DRAWER 7, Y5N ONE ×2 (08:51→20:38)
[2018-12-26] MEDS: LURASIDONE HCL 40 MG TABLET PO SCH (10:04)
[2018-12-26] MEDS: FAMOTIDINE 10 MG TABLET PO SCH ×2 (10:04→22:28)
[2018-12-26] MEDS: CITALOPRAM HYDROBROMIDE 10 MG TABLET (FP) PO SCH (10:05)
[2018-12-26] MEDS: PRENATAL VITAMINS W/ FOLIC ACID TABLET (FP) PO SCH (10:05)
[2018-12-26] MEDS: NICOTINE 14 MG/24 HOURS TOPICAL PATCH TD SCH (10:06)
[2018-12-26] MEDS: THIAMINE HCL 100 MG TABLET (FP) PO SCH (22:28)
[2018-12-26] MEDS: risperiDONE 1 MG TABLET (FP) PO SCH (22:28)
[2018-12-26] MEDS: DOCUSATE SODIUM 100 MG CAPSULE (FP) PO SCH (22:28)
[2018-12-26] MEDS: MELATONIN 5 MG TABLETS PO PRN (22:29)
[2018-12-27] MEDS ORDERED: PT OWN MED DRAWER 7, Y5N ONE ×2 (08:41→18:34)
[2018-12-27] MEDS: NICOTINE 14 MG/24 HOURS TOPICAL PATCH TD SCH (10:25)
[2018-12-27] MEDS: PRENATAL VITAMINS W/ FOLIC ACID TABLET (FP) PO SCH (10:26)
[2018-12-27] MEDS: CITALOPRAM HYDROBROMIDE 10 MG TABLET (FP) PO SCH (10:26)
[2018-12-27] MEDS: FAMOTIDINE 10 MG TABLET PO SCH ×2 (10:27→21:29)
[2018-12-27] MEDS: LURASIDONE HCL 40 MG TABLET PO SCH (10:27)
[2018-12-27] MEDS: IBUPROFEN 400 MG TABLET (FP) PO PRN (10:28)
[2018-12-27] MEDS: DOCUSATE SODIUM 100 MG CAPSULE (FP) PO SCH (21:29)
[2018-12-27] MEDS: risperiDONE 1 MG TABLET (FP) PO SCH (21:29)
[2018-12-27] MEDS: THIAMINE HCL 100 MG TABLET (FP) PO SCH (21:30)
[2018-12-27] MEDS: MELATONIN 5 MG TABLETS PO PRN (21:30)
[2018-12-28] MEDS ORDERED: PT OWN MED DRAWER 7, Y5N ONE (08:50)
[2018-12-28] MEDS: NICOTINE 14 MG/24 HOURS TOPICAL PATCH TD SCH (10:22)
[2018-12-28] MEDS: FAMOTIDINE 10 MG TABLET PO SCH ×2 (10:23→21:56)
[2018-12-28] MEDS: PRENATAL VITAMINS W/ FOLIC ACID TABLET (FP) PO SCH (10:24)
[2018-12-28] MEDS: LURASIDONE HCL 40 MG TABLET PO SCH (10:25)
[2018-12-28] MEDS: CITALOPRAM HYDROBROMIDE 10 MG TABLET (FP) PO SCH (10:25)
--- NOTE | 2018-12-28 13:35 | PN ---
[facility] Progress Note Note: Psychiatry Attending's note (follow-up) : Approached by patient. Ms Jones wants to discuss medications. She feels well. Would like risperdal raised to 3 mg/hs. Doses were lowered during detoxification (patient was sedated). Now ambulatory, steady and cognitively improved. Vitals noted. Plan : . Maintain lurazidone 40 mg po daily. . Risperdal 2 mg po hs. . Monitor for sedation and orthostasis. . Side effects/benefits discussed with the patient. . Ms Jones is in agreement with this plan of care. . Will follow.
[2018-12-28] MEDS: IBUPROFEN 400 MG TABLET (FP) PO PRN (15:39)
[2018-12-28] MEDS: DOCUSATE SODIUM 100 MG CAPSULE (FP) PO SCH (21:55)
[2018-12-28] MEDS: THIAMINE HCL 100 MG TABLET (FP) PO SCH (21:56)
[2018-12-28] MEDS: risperiDONE 2 MG TABLET PO SCH (21:56)
[2018-12-28] MEDS: MELATONIN 5 MG TABLETS PO PRN (21:56)
[2018-12-29] MEDS ORDERED: PT OWN MED DRAWER 7, Y5N ONE ×3 (08:21→19:28)
[2018-12-29] MEDS: FAMOTIDINE 10 MG TABLET PO SCH ×2 (10:08→21:19)
[2018-12-29] MEDS: CITALOPRAM HYDROBROMIDE 10 MG TABLET (FP) PO SCH (10:08)
[2018-12-29] MEDS: NICOTINE 14 MG/24 HOURS TOPICAL PATCH TD SCH (10:10)
[2018-12-29] MEDS: PRENATAL VITAMINS W/ FOLIC ACID TABLET (FP) PO SCH (10:10)
[2018-12-29] MEDS: LURASIDONE HCL 40 MG TABLET PO SCH (10:10)
--- NOTE | 2018-12-29 17:55 | PN ---
[facility] Progress Note Note: Psychiatry Attending's note : Chart reviewed. Met with the patient. Medications discussed. Gait observed. Steady. No complaints drowsiness. Risperdal titrated to 1 mg po daily. In addition to 2 mg po hs. Patient agrees.
[2018-12-29] MEDS: DOCUSATE SODIUM 100 MG CAPSULE (FP) PO SCH (21:18)
[2018-12-29] MEDS: risperiDONE 2 MG TABLET PO SCH (21:18)
[2018-12-29] MEDS: MELATONIN 5 MG TABLETS PO PRN (21:19)
[2018-12-29] MEDS: THIAMINE HCL 100 MG TABLET (FP) PO SCH (21:19)
[2018-12-30] MEDS: LURASIDONE HCL 40 MG TABLET PO SCH (09:42)
[2018-12-30] MEDS: PRENATAL VITAMINS W/ FOLIC ACID TABLET (FP) PO SCH (09:42)
[2018-12-30] MEDS: FAMOTIDINE 10 MG TABLET PO SCH ×2 (09:42→21:13)
[2018-12-30] MEDS: CITALOPRAM HYDROBROMIDE 10 MG TABLET (FP) PO SCH (09:43)
[2018-12-30] MEDS: NICOTINE 14 MG/24 HOURS TOPICAL PATCH TD SCH (09:44)
[2018-12-30] MEDS: risperiDONE 1 MG TABLET (FP) PO SCH (10:04)
[2018-12-30] MEDS ORDERED: PT OWN MED DRAWER 7, Y5N ONE ×2 (10:15→20:18)
[2018-12-30] MEDS: IBUPROFEN 400 MG TABLET (FP) PO PRN (14:51)
[2018-12-30] MEDS: MELATONIN 5 MG TABLETS PO PRN (21:13)
[2018-12-30] MEDS: DOCUSATE SODIUM 100 MG CAPSULE (FP) PO SCH (21:13)
[2018-12-30] MEDS: risperiDONE 2 MG TABLET PO SCH (21:13)
[2018-12-30] MEDS: THIAMINE HCL 100 MG TABLET (FP) PO SCH (21:13)
[2018-12-31] MEDS: risperiDONE 1 MG TABLET (FP) PO SCH (10:07)
[2018-12-31] MEDS: PRENATAL VITAMINS W/ FOLIC ACID TABLET (FP) PO SCH (10:07)
[2018-12-31] MEDS: LURASIDONE HCL 40 MG TABLET PO SCH (10:08)
[2018-12-31] MEDS: CITALOPRAM HYDROBROMIDE 10 MG TABLET (FP) PO SCH (10:08)
[2018-12-31] MEDS: FAMOTIDINE 10 MG TABLET PO SCH ×2 (10:08→21:18)
[2018-12-31] MEDS: NICOTINE 14 MG/24 HOURS TOPICAL PATCH TD SCH (10:09)
[2018-12-31] MEDS: IBUPROFEN 400 MG TABLET (FP) PO PRN (10:35)
[2018-12-31] MEDS: ACETAMINOPHEN 325 MG TABLET (FP) PO PRN (13:45)
[2018-12-31] MEDS: THIAMINE HCL 100 MG TABLET (FP) PO SCH (21:15)
[2018-12-31] MEDS: DOCUSATE SODIUM 100 MG CAPSULE (FP) PO SCH (21:15)
[2018-12-31] MEDS: risperiDONE 2 MG TABLET PO SCH (21:16)
[2018-12-31] MEDS: MELATONIN 5 MG TABLETS PO PRN (21:17)
[2018-12-31] MEDS ORDERED: PT OWN MED DRAWER 7, Y5N ONE (21:19)
[2019-01-01] MEDS: ACETAMINOPHEN 325 MG TABLET (FP) PO PRN ×3 (04:28→22:01)
[2019-01-01] MEDS ORDERED: PT OWN MED DRAWER 7, Y5N ONE ×3 (06:04→15:41)
[2019-01-01] MEDS: CITALOPRAM HYDROBROMIDE 10 MG TABLET (FP) PO SCH (09:57)
[2019-01-01] MEDS: LURASIDONE HCL 40 MG TABLET PO SCH (09:57)
[2019-01-01] MEDS: FAMOTIDINE 10 MG TABLET PO SCH ×2 (09:57→21:16)
[2019-01-01] MEDS: PRENATAL VITAMINS W/ FOLIC ACID TABLET (FP) PO SCH (09:58)
[2019-01-01] MEDS: risperiDONE 1 MG TABLET (FP) PO SCH (09:58)
[2019-01-01] MEDS: NICOTINE 14 MG/24 HOURS TOPICAL PATCH TD SCH (09:58)
[2019-01-01] MEDS: IBUPROFEN 400 MG TABLET (FP) PO PRN (12:58)
--- NOTE | 2019-01-01 13:24 | PN ---
[facility] Progress Note Note: Patient is scheduled for discharge tomorrow. Scripts for 30 days supply of medications( Risperdal 1 mg/day & 2 mg/hs, Celexa 10 mg/day, Latuda 40 mg/day) will be electronically transmitted to [facility] at [address] [place] [address]
--- NOTE | 2019-01-01 14:58 | DS ---
[facility] Rehab Discharge Summary - [facility] Rehab Discharge Summary Admission Date: 12/21/18 Discharge Date: 01/02/19 - History Present History: Alcohol dependence, Cocaine dependence Additional Comments: Pt is a 53 y/o female admitted to rehab after completing detox on and scheduled for discharge on 01/02/19. Pertinent Past History: COPD GERD Frost's palsy Bipolar Disorder - Discharge Physical Exam Vital Signs: Vital Signs Temperature 98.5 F 01/01/19 07:28 Pulse Rate 80 01/01/19 07:28 Respiratory Rate 18 01/01/19 07:28 Blood Pressure 115/79 01/01/19 07:28 O2 Sat by Pulse Oximetry (%) Alert o x 3 nad oob ambulating with steady gait cardiac:s1 s2,rrr lungs;cta.shadia. abdomen:soft,+bs,nt,nd extremities/skin:no edema Pertinent Admission Physical Exam Findings: Unremarkable/stable and unchanged from detox admission - Treatment Discharge Condition: Discharge condition good Hospital Course: rehabilitated safely and responded well CD aftercare referral accepted. - Medication Discharge Medications: Ambulatory Orders Lurasidone HCl [Latuda] 40 tab PO DAILY 10/30/18 Risperidone [Risperdal] 1 mg PO HS 12/21/18 Citalopram Hydrobromide [Celexa -] 10 mg PO DAILY #30 tablet 01/01/19 Lurasidone HCl [Latuda -] 40 mg PO DAILY #30 tablet 01/01/19 Risperidone [Risperdal -] 1 mg PO DAILY #30 tablet 01/01/19 Risperidone [Risperdal -] 2 mg PO HS #30 tablet 01/01/19 - Medication-Assisted Treatment (MAT) Medication-Assisted Treatment (MAT): No - Discharge Instructions Diet, activity, other medical instructions: Diet:regular Activity: oob ad toby Other medical instructions:follow up with primary care provider Dylan Shannon on [place], [place] for medical management within 1-2 weeks after discharge. Follow up with CD aftercare referral with [facility] on [address] [place] [address] as recommended. - Diagnosis (1) Alcohol dependence Status: Chronic Qualifiers: Substance use status: uncomplicated Qualified Code(s): F10.20 - Alcohol dependence, uncomplicated (2) COPD (chronic obstructive pulmonary disease) Status: Chronic Qualifiers: COPD type: unspecified COPD Qualified Code(s): J44.9 - Chronic obstructive pulmonary disease, unspecified (3) Cannabis dependence Status: Chronic (4) Cocaine dependence Status: Chronic Qualifiers: Substance use status: uncomplicated Qualified Code(s): F14.20 - Cocaine dependence, uncomplicated (5) GERD (gastroesophageal reflux disease) Status: Chronic Qualifiers: Esophagitis presence: esophagitis presence not specified Qualified Code(s) : K21.9 - Gastro-esophageal reflux disease without esophagitis (6) History of Frost's palsy Status: Chronic (7) Nicotine dependence Status: Chronic Qualifiers: Nicotine product type: cigarettes Substance use status: uncomplicated Qualified Code(s): F17.210 - Nicotine dependence, cigarettes, uncomplicated (8) Sickle cell trait Status: Chronic - Follow-up Referral Minutes to complete discharge: 20 - AMA Did Patient Leave Against Medical Advice: No
[2019-01-01] MEDS: THIAMINE HCL 100 MG TABLET (FP) PO SCH (21:14)
[2019-01-01] MEDS: DOCUSATE SODIUM 100 MG CAPSULE (FP) PO SCH (21:14)
[2019-01-01] MEDS: risperiDONE 2 MG TABLET PO SCH (21:15)
[2019-01-01] MEDS: MELATONIN 5 MG TABLETS PO PRN (21:15)
[2019-01-02] MEDS: ACETAMINOPHEN 325 MG TABLET (FP) PO PRN (06:35)
[2019-01-02 07:01] VITALS: BP 131/83; PULSE 56; TEMP 97.9
[2019-01-02] MEDS: risperiDONE 1 MG TABLET (FP) PO SCH (09:03)
[2019-01-02] MEDS: FAMOTIDINE 10 MG TABLET PO SCH (09:03)
[2019-01-02] MEDS: CITALOPRAM HYDROBROMIDE 10 MG TABLET (FP) PO SCH (09:03)
[2019-01-02] MEDS: NICOTINE 14 MG/24 HOURS TOPICAL PATCH TD SCH (09:04)
[2019-01-02] MEDS: LURASIDONE HCL 40 MG TABLET PO SCH (09:04)
[2019-01-02] MEDS: PRENATAL VITAMINS W/ FOLIC ACID TABLET (FP) PO SCH (09:31)
--- NOTE | 2019-01-02 11:24 | PN ---
S Progress Note Note: Pt was discharge as scheduled in stable condition. Vital Signs - 24 hr 01/02/19 01/02/19 01/02/19 00:30 03:30 07:00 Temperature 97.9 F Pulse Rate 56 L Respiratory 18 18 18 Rate Blood Pressure 131/83 D/w pt to follow up with referrals as scheduled.
== END 2019-01-02 09:07 | disposition home or self-care (01) | DRG 772 ==
LOC: YASAS 10:48 → Y3E 10:49
PROVIDERS: ADMIT Neuromusculoskeletal Medicine & OMM; ATTEND Neuromusculoskeletal Medicine & OMM
PROC: HZ42ZZZ Group Counseling for Substance Abuse Treatment, Cognitive-Behavioral (ICD-10-PCS; principal; 2018-12-21)
DX: F10.20 Alcohol dependence, uncomplicated (principal); F14.20 Cocaine dependence, uncomplicated; F12.20 Cannabis dependence, uncomplicated; F17.210 Nicotine dependence, cigarettes, uncomplicated; K21.9 Gastro-esophageal reflux disease without esophagitis; J44.9 Chronic obstructive pulmonary disease, unspecified; D57.3 Sickle-cell trait; Z86.69 Personal history of other diseases of the nervous system and sense organs
CPT/HCPCS: J2794

== ENCOUNTER 2019-02-26 14:44 | Inpatient (IN) | payer OTHER ==
[2019-02-26 18:36] VITALS: BMI 22.0
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
[2019-02-26] MEDS ORDERED: MAGNESIUM HYDROX 2400MG/30ML ORAL SUSPENSION 30 ML CUP PO PRN (21:21)
[2019-02-26] MEDS ORDERED: MENTHOL/PHENOL 1 EACH UD MM PRN (21:21)
[2019-02-26] MEDS ORDERED: NICOTINE POLACRILEX 2 MG GUM BUC PRN (21:21)
[2019-02-26] MEDS ORDERED: MAGNESIUM CITRATE 300 ML BOTTLE PO PRN (21:21)
[2019-02-26] MEDS ORDERED: ACETAMINOPHEN 325 MG TABLET (FP) PO PRN ×2 (21:21)
[2019-02-26] MEDS ORDERED: MAG HYDROX/AL HYDROX/SIMETH 30 ML UNIT-DOSE CUP PO PRN (21:21)
[2019-02-26] MEDS ORDERED: IBUPROFEN 400 MG TABLET (FP) PO PRN (21:21)
[2019-02-26] MEDS ORDERED: BISMUTH SUBSALICYLATE 524 MG/30 ML UD PO PRN (21:21)
[2019-02-26] MEDS ORDERED: CYCLOBENZAPRINE HCL 5 MG TABLET PO PRN (21:24)
[2019-02-26] MEDS: THIAMINE HCL 100 MG TABLET (FP) PO SCH (22:45)
[2019-02-26] MEDS: MELATONIN 5 MG TABLETS PO PRN (22:45)
[2019-02-26] MEDS ORDERED: chlordiazePOXIDE HCL 25 MG CAPSULE PO ONE (23:00)
[2019-02-27] MEDS: chlordiazePOXIDE HCL 25 MG CAPSULE PO SCH ×3 (06:41→22:15)
[2019-02-27] MEDS: NICOTINE 14 MG/24 HOURS TOPICAL PATCH TD SCH (09:49)
[2019-02-27] MEDS: PRENATAL VITAMINS W/ FOLIC ACID TABLET (FP) PO SCH (09:49)
[2019-02-27 10:19] LABS: HEMATOCRIT 38.4 % (32.4-45.2); HEMOGLOBIN 12.5 GM/dL (10.7-15.3); MCH 28.6 pg (25.7-33.7); MCHC 32.5 g/dl (32.0-36.0); MEAN CELL VOLUME 87.9 fl (80-96); MEAN PLT VOLUME 7.5 fl (7.5-11.1); PLATELET COUNT 425 K/MM3 (134-434); RBC 4.36 M/mm3 (3.60-5.2); RDW 13.8 % (11.6-15.6); WHITE BLOOD COUNT 7.4 K/mm3 (4.0-10.0)
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
[2019-02-27 10:42] LABS: ALBUMIN 3.4 g/dl (3.4-5.0); BILIRUBIN,TOTAL 0.4 mg/dL (0.2-1); BLOOD UREA NITROGEN 10.4 mg/dL (7-18); CALCIUM 9.2 mg/dL (8.5-10.1); CREATININE 0.8 mg/dL (0.55-1.3); POTASSIUM 4.2 mmol/L (3.5-5.1); TOT PROT 6.7 g/dl (6.4-8.2)
--- NOTE | 2019-02-27 14:34 | PN ---
S CIWA - CIWA Score Nausea/Vomitin-Mild Nausea/No Vomiting Muscle Tremors: 3 Anxiety: 2 Agitation: 1-Slight > Activity Paroxysmal Sweats: 2 Orientation: 1-Uncertain about Date Tacttile Disturbances: 1-Very Mild Itch/Numbness Auditory Disturbances: 0-None Visual Disturbances: 0-None Headache: 1-Very Mild CIWA-Ar Total Score: 12 BHS Progress Note (SOAP) Subjective: 54 years old male admitted on 02/26/19 for alcohol withdrawal sx management treating with librium detox regimen feeling tired resting on bed prefers to stay in bed today limited conversation with staff Objective: 02/27/19 14:37 Vital Signs Temperature 97.6 F 02/27/19 13:20 Pulse Rate 67 02/27/19 13:20 Respiratory Rate 18 02/27/19 13:20 Blood Pressure 108/72 02/27/19 13:20 O2 Sat by Pulse Oximetry (%) Laboratory Last Values WBC 7.4 K/mm3 (4.0-10.0) 02/27/19 07:40 RBC 4.36 M/mm3 (3.60-5.2) 02/27/19 07:40 Hgb 12.5 GM/dL (10.7-15.3) 02/27/19 07:40 Hct 38.4 % (32.4-45.2) 02/27/19 07:40 MCV 87.9 fl (80-96) 02/27/19 07:40 MCH 28.6 pg (25.7-33.7) 02/27/19 07:40 MCHC 32.5 g/dl (32.0-36.0) 02/27/19 07:40 RDW 13.8 % (11.6-15.6) 02/27/19 07:40 Plt Count 425 K/MM3 (134-434) 02/27/19 07:40 MPV 7.5 fl (7.5-11.1) 02/27/19 07:40 Sodium 141 mmol/L (136-145) 02/27/19 07:40 Potassium 4.2 mmol/L (3.5-5.1) 02/27/19 07:40 Chloride 106 mmol/L (98-107) 02/27/19 07:40 Carbon Dioxide 28 mmol/L (21-32) 02/27/19 07:40 Anion Gap 6 MMOL/L (8-16) L 02/27/19 07:40 BUN 10.4 mg/dL (7-18) 02/27/19 07:40 Creatinine 0.8 mg/dL (0.55-1.3) 02/27/19 07:40 Est GFR (CKD-EPI)AfAm 97.55 02/27/19 07:40 Est GFR (CKD-EPI)NonAf 84.17 02/27/19 07:40 Random Glucose 78 mg/dL (74-106) 02/27/19 07:40 Calcium 9.2 mg/dL (8.5-10.1) 02/27/19 07:40 Total Bilirubin 0.4 mg/dL (0.2-1) 02/27/19 07:40 AST 19 U/L (15-37) 02/27/19 07:40 ALT 13 U/L (13-61) 02/27/19 07:40 Alkaline Phosphatase 61 U/L (45-117) 02/27/19 07:40 Total Protein 6.7 g/dl (6.4-8.2) 02/27/19 07:40 Albumin 3.4 g/dl (3.4-5.0) 02/27/19 07:40 lab noted Assessment: 02/27/19 14:37 alcohol withdrawal Plan: librium regimen
[2019-02-27 18:43] LABS: EPI CELLS 13.4 /HPF (0-5/HPF); HYALINE CASTS 26 /lpf (0-8); PH,URINE 5.5 (5.0-8.0); URINE APPEARANCE CLOUDY; URINE BACTERIA 530.5 /hpf (NEGATIVE); URINE BILIRUBIN NEGATIVE (NEGATIVE); URINE COLOR YELLOW; URINE GLUCOSE (UA) NEGATIVE (NEGATIVE); URINE KETONE TRACE (NEGATIVE); URINE LEUK ESTERASE TRACE (NEGATIVE); URINE NITRITE NEGATIVE (NEGATIVE); URINE PROTEIN NEGATIVE (NEGATIVE); URINE RBC 6 /hpf (0-4); URINE WBC 25 /hpf (0-5)
[2019-02-27 19:01] LABS: URINE CRYSTALS FEW CALCIUM OXALATE /hpf
[2019-02-27] MEDS: risperiDONE 2 MG TABLET PO SCH (22:15)
[2019-02-27] MEDS: THIAMINE HCL 100 MG TABLET (FP) PO SCH (22:15)
[2019-02-27] MEDS: MELATONIN 5 MG TABLETS PO PRN (22:16)
[2019-02-27] MEDS ORDERED: chlordiazePOXIDE 5 MG CAPSULE PO PRN (22:46)
[2019-02-27] MEDS: LURASIDONE HCL 40 MG TABLET PO SCH (22:47)
[2019-02-28] MEDS: chlordiazePOXIDE 5 MG CAPSULE PO SCH ×3 (06:01→22:09)
[2019-02-28] MEDS: risperiDONE 1 MG TABLET (FP) PO SCH (10:19)
[2019-02-28] MEDS: NICOTINE 14 MG/24 HOURS TOPICAL PATCH TD SCH (10:19)
[2019-02-28] MEDS: CITALOPRAM HYDROBROMIDE 10 MG TABLET (FP) PO SCH (10:19)
[2019-02-28] MEDS: PRENATAL VITAMINS W/ FOLIC ACID TABLET (FP) PO SCH (10:19)
--- NOTE | 2019-02-28 13:06 | PN ---
S CIWA - CIWA Score Nausea/Vomitin-Mild Nausea/No Vomiting (gassy) Muscle Tremors: 2 Anxiety: 2 Agitation: 2 Paroxysmal Sweats: 1-Minimal Palms Moist Orientation: 0-Oriented Tacttile Disturbances: 0-None Auditory Disturbances: 0-None Visual Disturbances: 0-None Headache: 0-None Present CIWA-Ar Total Score: 8 BHS Progress Note (SOAP) Subjective: 54 years old female admitted on 02/26/19 for alcohol withdrawal sx management treating with librium detox regimen c/o gassy of gi abdomen soft round + bs flatulence gas x qid Objective: 02/28/19 13:05 Vital Signs Temperature 98.9 F 02/28/19 09:30 Pulse Rate 75 02/28/19 09:30 Respiratory Rate 18 02/28/19 09:30 Blood Pressure 90/55 L 02/28/19 09:30 O2 Sat by Pulse Oximetry (%) Laboratory Last Values WBC 7.4 K/mm3 (4.0-10.0) 02/27/19 07:40 RBC 4.36 M/mm3 (3.60-5.2) 02/27/19 07:40 Hgb 12.5 GM/dL (10.7-15.3) 02/27/19 07:40 Hct 38.4 % (32.4-45.2) 02/27/19 07:40 MCV 87.9 fl (80-96) 02/27/19 07:40 MCH 28.6 pg (25.7-33.7) 02/27/19 07:40 MCHC 32.5 g/dl (32.0-36.0) 02/27/19 07:40 RDW 13.8 % (11.6-15.6) 02/27/19 07:40 Plt Count 425 K/MM3 (134-434) 02/27/19 07:40 MPV 7.5 fl (7.5-11.1) 02/27/19 07:40 Sodium 141 mmol/L (136-145) 02/27/19 07:40 Potassium 4.2 mmol/L (3.5-5.1) 02/27/19 07:40 Chloride 106 mmol/L (98-107) 02/27/19 07:40 Carbon Dioxide 28 mmol/L (21-32) 02/27/19 07:40 Anion Gap 6 MMOL/L (8-16) L 02/27/19 07:40 BUN 10.4 mg/dL (7-18) 02/27/19 07:40 Creatinine 0.8 mg/dL (0.55-1.3) 02/27/19 07:40 Est GFR (CKD-EPI)AfAm 97.55 02/27/19 07:40 Est GFR (CKD-EPI)NonAf 84.17 02/27/19 07:40 Random Glucose 78 mg/dL (74-106) 02/27/19 07:40 Calcium 9.2 mg/dL (8.5-10.1) 02/27/19 07:40 Total Bilirubin 0.4 mg/dL (0.2-1) 02/27/19 07:40 AST 19 U/L (15-37) 02/27/19 07:40 ALT 13 U/L (13-61) 02/27/19 07:40 Alkaline Phosphatase 61 U/L (45-117) 02/27/19 07:40 Total Protein 6.7 g/dl (6.4-8.2) 02/27/19 07:40 Albumin 3.4 g/dl (3.4-5.0) 02/27/19 07:40 Urine Color Yellow 02/27/19 12:09 Urine Appearance Cloudy 02/27/19 12:09 Urine pH 5.5 (5.0-8.0) D 02/27/19 12:09 Ur Specific [place] 1.032 (1.010-1.035) 02/27/19 12:09 Urine Protein Negative (NEGATIVE) 02/27/19 12:09 Urine Glucose (UA) Negative (NEGATIVE) 02/27/19 12:09 Urine Ketones Trace (NEGATIVE) H 02/27/19 12:09 Urine Blood Negative (NEGATIVE) 02/27/19 12:09 Urine Nitrite Negative (NEGATIVE) 02/27/19 12:09 Urine Bilirubin Negative (NEGATIVE) 02/27/19 12:09 Urine Urobilinogen 1.0 mg/dL (0.2-1.0) 02/27/19 12:09 Ur Leukocyte Esterase Trace (NEGATIVE) 02/27/19 12:09 Urine WBC (Auto) 25 /hpf (0-5) 02/27/19 12:09 Urine RBC (Auto) 6 /hpf (0-4) 02/27/19 12:09 Urine Casts (Auto) 26 /lpf (0-8) 02/27/19 12:09 U Epithel Cells (Auto) 13.4 /HPF (0-5/HPF) 02/27/19 12:09 Urine Crystals (Auto) Few calcium oxalate /hpf 02/27/19 12:09 Urine Bacteria (Auto) 530.5 /hpf (NEGATIVE) 02/27/19 12:09 lab noted Assessment: 02/28/19 13:06 alcohol withdrawal Plan: librium regimen
[2019-02-28] MEDS: SIMETHICONE 80 MG TAB.CHEW (FP) PO SCH ×3 (14:24→22:08)
[2019-02-28] MEDS: LURASIDONE HCL 40 MG TABLET PO SCH (22:08)
[2019-02-28] MEDS: THIAMINE HCL 100 MG TABLET (FP) PO SCH (22:08)
[2019-02-28] MEDS: risperiDONE 2 MG TABLET PO SCH (22:10)
[2019-02-28] MEDS: MELATONIN 5 MG TABLETS PO PRN (22:12)
[2019-03-01] MEDS ORDERED: chlordiazePOXIDE 5 MG CAPSULE PO PRN
[2019-03-01] MEDS: chlordiazePOXIDE HCL 10 MG CAPSULE PO SCH ×3 (05:47→22:20)
[2019-03-01] MEDS: PRENATAL VITAMINS W/ FOLIC ACID TABLET (FP) PO SCH (10:03)
[2019-03-01] MEDS: risperiDONE 1 MG TABLET (FP) PO SCH (11:14)
[2019-03-01] MEDS: CITALOPRAM HYDROBROMIDE 10 MG TABLET (FP) PO SCH (11:14)
[2019-03-01] MEDS: SIMETHICONE 80 MG TAB.CHEW (FP) PO SCH ×4 (11:14→23:10)
[2019-03-01] MEDS: NICOTINE 14 MG/24 HOURS TOPICAL PATCH TD SCH (12:49)
--- NOTE | 2019-03-01 13:33 | PN ---
S CIWA - CIWA Score Nausea/Vomitin-No Nausea/No Vomiting Muscle Tremors: None Anxiety: 2 Agitation: 0-Normal Activity Paroxysmal Sweats: 2 Orientation: 0-Oriented Tacttile Disturbances: 0-None Auditory Disturbances: 0-None Visual Disturbances: 0-None Headache: 1-Very Mild CIWA-Ar Total Score: 5 BHS Progress Note (SOAP) Subjective: c/o mild withdrawal symptoms. Objective: 03/01/19 13:30 Vital Signs 03/01/19 03/01/19 03/01/19 06:39 09:20 10:22 Temperature 97.1 F L 97.3 F L Pulse Rate 55 L 59 L 65 Respiratory 18 17 17 Rate Blood Pressure 99/51 L 86/51 L 96/67 03/01/19 03/01/19 11:17 13:19 Temperature 96.3 F L Pulse Rate 63 63 Respiratory 18 18 Rate Blood Pressure 106/73 121/82 Laboratory Last Values WBC 7.4 K/mm3 (4.0-10.0) 02/27/19 07:40 RBC 4.36 M/mm3 (3.60-5.2) 02/27/19 07:40 Hgb 12.5 GM/dL (10.7-15.3) 02/27/19 07:40 Hct 38.4 % (32.4-45.2) 02/27/19 07:40 MCV 87.9 fl (80-96) 02/27/19 07:40 MCH 28.6 pg (25.7-33.7) 02/27/19 07:40 MCHC 32.5 g/dl (32.0-36.0) 02/27/19 07:40 RDW 13.8 % (11.6-15.6) 02/27/19 07:40 Plt Count 425 K/MM3 (134-434) 02/27/19 07:40 MPV 7.5 fl (7.5-11.1) 02/27/19 07:40 Sodium 141 mmol/L (136-145) 02/27/19 07:40 Potassium 4.2 mmol/L (3.5-5.1) 02/27/19 07:40 Chloride 106 mmol/L (98-107) 02/27/19 07:40 Carbon Dioxide 28 mmol/L (21-32) 02/27/19 07:40 Anion Gap 6 MMOL/L (8-16) L 02/27/19 07:40 BUN 10.4 mg/dL (7-18) 02/27/19 07:40 Creatinine 0.8 mg/dL (0.55-1.3) 02/27/19 07:40 Est GFR (CKD-EPI)AfAm 97.55 02/27/19 07:40 Est GFR (CKD-EPI)NonAf 84.17 02/27/19 07:40 Random Glucose 78 mg/dL (74-106) 02/27/19 07:40 Calcium 9.2 mg/dL (8.5-10.1) 02/27/19 07:40 Total Bilirubin 0.4 mg/dL (0.2-1) 02/27/19 07:40 AST 19 U/L (15-37) 02/27/19 07:40 ALT 13 U/L (13-61) 02/27/19 07:40 Alkaline Phosphatase 61 U/L (45-117) 02/27/19 07:40 Total Protein 6.7 g/dl (6.4-8.2) 02/27/19 07:40 Albumin 3.4 g/dl (3.4-5.0) 02/27/19 07:40 Urine Color Yellow 02/27/19 12:09 Urine Appearance Cloudy 02/27/19 12:09 Urine pH 5.5 (5.0-8.0) D 02/27/19 12:09 Ur Specific Owen 1.032 (1.010-1.035) 02/27/19 12:09 Urine Protein Negative (NEGATIVE) 02/27/19 12:09 Urine Glucose (UA) Negative (NEGATIVE) 02/27/19 12:09 Urine Ketones Trace (NEGATIVE) H 02/27/19 12:09 Urine Blood Negative (NEGATIVE) 02/27/19 12:09 Urine Nitrite Negative (NEGATIVE) 02/27/19 12:09 Urine Bilirubin Negative (NEGATIVE) 02/27/19 12:09 Urine Urobilinogen 1.0 mg/dL (0.2-1.0) 02/27/19 12:09 Ur Leukocyte Esterase Trace (NEGATIVE) 02/27/19 12:09 Urine WBC (Auto) 25 /hpf (0-5) 02/27/19 12:09 Urine RBC (Auto) 6 /hpf (0-4) 02/27/19 12:09 Urine Casts (Auto) 26 /lpf (0-8) 02/27/19 12:09 U Epithel Cells (Auto) 13.4 /HPF (0-5/HPF) 02/27/19 12:09 Urine Crystals (Auto) Few calcium oxalate /hpf 02/27/19 12:09 Urine Bacteria (Auto) 530.5 /hpf (NEGATIVE) 02/27/19 12:09 Labs noted. Assessment: 03/01/19 13:31 AOX3, in no respiratory distress. Full ROM, ambulating in the unit. Mild Withdrawal symptoms. For d/c tomorrow. Plan: continue detox. D/C in AM.
[2019-03-01] MEDS: LURASIDONE HCL 40 MG TABLET PO SCH (22:19)
[2019-03-01] MEDS: THIAMINE HCL 100 MG TABLET (FP) PO SCH (22:19)
[2019-03-01] MEDS: risperiDONE 2 MG TABLET PO SCH (22:19)
[2019-03-01] MEDS: MELATONIN 5 MG TABLETS PO PRN (22:21)
[2019-03-02] MEDS ORDERED: chlordiazePOXIDE HCL 10 MG CAPSULE PO ONE (05:00)
[2019-03-02 09:20] VITALS: BP 93/68; PULSE 65; TEMP 97.9
--- NOTE | 2019-03-02 13:43 | DS ---
[facility] Detox Discharge Summary Admission Date: 02/26/19 Discharge Date: 03/02/19 - History Present History: Alcohol Dependence, Cannabis Dependence, Cocaine Dependence Additional Comments: Pt is medically cleared and discharged today. Pt completed the detox protocol. Pt is encouraged to follow-up with an outpatient CD program and also to follow- up with her pmd. Pt verbalized understanding of the information given. Pt is AOX3 and in no acute respiratory distress. Pertinent Past History: h/o asthma, copd, alcohol, cannabis, and cocaine use disorder. - Physical Exam Results Vital Signs: Vital Signs Temperature 97.9 F 03/02/19 09:19 Pulse Rate 65 03/02/19 09:19 Respiratory Rate 18 03/02/19 09:19 Blood Pressure 93/68 03/02/19 09:19 O2 Sat by Pulse Oximetry (%) Vital Signs 03/02/19 03/02/19 06:29 09:19 Temperature 97.8 F 97.9 F Pulse Rate 62 65 Respiratory 16 18 Rate Blood Pressure 85/53 L 93/68 Lab Results WBC 7.4 K/mm3 (4.0-10.0) 02/27/19 07:40 RBC 4.36 M/mm3 (3.60-5.2) 02/27/19 07:40 Hgb 12.5 GM/dL (10.7-15.3) 02/27/19 07:40 Hct 38.4 % (32.4-45.2) 02/27/19 07:40 MCV 87.9 fl (80-96) 02/27/19 07:40 MCHC 32.5 g/dl (32.0-36.0) 02/27/19 07:40 RDW 13.8 % (11.6-15.6) 02/27/19 07:40 Plt Count 425 K/MM3 (134-434) 02/27/19 07:40 Sodium 141 mmol/L (136-145) 02/27/19 07:40 Potassium 4.2 mmol/L (3.5-5.1) 02/27/19 07:40 Chloride 106 mmol/L (98-107) 02/27/19 07:40 Carbon Dioxide 28 mmol/L (21-32) 02/27/19 07:40 Anion Gap 6 MMOL/L (8-16) L 02/27/19 07:40 BUN 10.4 mg/dL (7-18) 02/27/19 07:40 Creatinine 0.8 mg/dL (0.55-1.3) 02/27/19 07:40 Random Glucose 78 mg/dL (74-106) 02/27/19 07:40 Calcium 9.2 mg/dL (8.5-10.1) 02/27/19 07:40 Labs noted. Pertinent Admission Physical Exam Findings: withdrawal symptoms. - Treatment Hospital Course: Detox Protocol Followed, Detoxed Safely, Responded well, Discharged Condition Good - Medication Discharge Medications: Ambulatory Orders Risperidone [Risperdal] 1 mg PO HS 12/21/18 Citalopram Hydrobromide [Celexa -] 10 mg PO DAILY #30 tablet 01/01/19 Lurasidone HCl [Latuda -] 40 mg PO DAILY #30 tablet 01/01/19 Risperidone [Risperdal -] 2 mg PO HS #30 tablet 01/01/19 - Diagnosis (1) Alcohol dependence with uncomplicated withdrawal Status: Acute (2) History of positive PPD Status: Acute (3) COPD (chronic obstructive pulmonary disease) Status: Chronic Qualifiers: COPD type: unspecified COPD Qualified Code(s): J44.9 - Chronic obstructive pulmonary disease, unspecified (4) Cannabis dependence Status: Chronic (5) Cocaine dependence Status: Chronic Qualifiers: Substance use status: uncomplicated Qualified Code(s): F14.20 - Cocaine dependence, uncomplicated (6) GERD (gastroesophageal reflux disease) Status: Chronic Qualifiers: Esophagitis presence: esophagitis presence not specified Qualified Code(s) : K21.9 - Gastro-esophageal reflux disease without esophagitis (7) Nicotine dependence Status: Chronic Qualifiers: Nicotine product type: cigarettes Substance use status: uncomplicated Qualified Code(s): F17.210 - Nicotine dependence, cigarettes, uncomplicated (8) Sickle cell trait Status: Chronic - AMA Did Patient Leave Against Medical Advice: No
== END 2019-03-02 09:17 | disposition home or self-care (01) | DRG 774 ==
LOC: YASAS 14:44 → Y3N 21:34
PROVIDERS: ADMIT Allergy & Immunology; ATTEND Allergy & Immunology
PROC: HZ2ZZZZ Detoxification Services for Substance Abuse Treatment (ICD-10-PCS; principal; 2019-02-26)
DX: F10.230 Alcohol dependence with withdrawal, uncomplicated (principal); F14.20 Cocaine dependence, uncomplicated; F12.20 Cannabis dependence, uncomplicated; F17.210 Nicotine dependence, cigarettes, uncomplicated; F31.9 Bipolar disorder, unspecified; F19.24 Other psychoactive substance dependence with psychoactive substance-induced mood disorder; K21.9 Gastro-esophageal reflux disease without esophagitis; J44.9 Chronic obstructive pulmonary disease, unspecified; D57.3 Sickle-cell trait; R76.11 Nonspecific reaction to tuberculin skin test without active tuberculosis; M17.11 Unilateral primary osteoarthritis, right knee; I69.354 Hemiplegia and hemiparesis following cerebral infarction affecting left non-dominant side; Z86.69 Personal history of other diseases of the nervous system and sense organs; Z88.8 Allergy status to other drugs, medicaments and biological substances; Z91.5 Personal history of self-harm
CPT/HCPCS: 36415; 80053; 81003; 85027; J2794

== ENCOUNTER 2019-03-12 13:08 | Inpatient (IN) | payer OTHER ==
[2019-03-12 15:49] VITALS: BMI 22.6
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
[2019-03-12] MEDS ORDERED: ALBUTEROL SO4 HFA INHALER IH PRN (17:56)
[2019-03-12] MEDS ORDERED: IBUPROFEN 400 MG TABLET (FP) PO PRN (17:57)
[2019-03-12] MEDS ORDERED: MAGNESIUM HYDROX 2400MG/30ML ORAL SUSPENSION 30 ML CUP PO PRN (17:57)
[2019-03-12] MEDS ORDERED: MENTHOL/PHENOL 1 EACH UD MM PRN (17:57)
[2019-03-12] MEDS ORDERED: BISMUTH SUBSALICYLATE 524 MG/30 ML UD PO PRN (17:57)
[2019-03-12] MEDS ORDERED: MAG HYDROX/AL HYDROX/SIMETH 30 ML UNIT-DOSE CUP PO PRN (17:57)
[2019-03-12] MEDS ORDERED: ACETAMINOPHEN 325 MG TABLET (FP) PO PRN ×2 (17:57)
[2019-03-12] MEDS ORDERED: hydrOXYzine PAMOATE 25 MG CAPSULE (FP) PO PRN (17:57)
[2019-03-12] MEDS ORDERED: MAGNESIUM CITRATE 300 ML BOTTLE PO PRN (17:57)
[2019-03-12] MEDS ORDERED: ALBUTEROL SO4 2.5/IPRATROPIUM 0.5 INH SOL 3 ML VIAL.NEB. NEB ONE (18:18)
[2019-03-12] MEDS ORDERED: diazePAM 5 MG TABLET PO ONE (18:30)
[2019-03-12] MEDS ORDERED: ALBUTEROL SO4 0.083% IH SOL 2.5 MG/3 ML VIAL.NEB. NEB PRN (19:00)
[2019-03-12] MEDS: THIAMINE HCL 100 MG TABLET (FP) PO SCH (22:03)
[2019-03-12] MEDS: diazePAM 5 MG TABLET PO SCH (22:04)
[2019-03-12] MEDS: MELATONIN 5 MG TABLETS PO PRN (22:04)
[2019-03-13] MEDS: diazePAM 5 MG TABLET PO SCH ×3 (07:06→22:44)
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
[2019-03-13] MEDS: LURASIDONE HCL 40 MG TABLET PO SCH ×2 (10:16→22:54)
[2019-03-13] MEDS: risperiDONE 3 MG TABLET PO SCH ×2 (10:16→22:44)
[2019-03-13] MEDS: CITALOPRAM HYDROBROMIDE 10 MG TABLET PO SCH (10:16)
[2019-03-13] MEDS: PRENATAL VITAMINS W/ FOLIC ACID TABLET (FP) PO SCH (10:16)
--- NOTE | 2019-03-13 11:29 | PN ---
[facility] CIWA - CIWA Score Nausea/Vomitin-No Nausea/No Vomiting Muscle Tremors: 3 Anxiety: 3 Agitation: 3 Paroxysmal Sweats: 2 Orientation: 0-Oriented Tacttile Disturbances: 0-None Auditory Disturbances: 0-None Visual Disturbances: 0-None Headache: 0-None Present CIWA-Ar Total Score: 11 S Progress Note (SOAP) Subjective: nausea sweats shakes interrupted sleep body aches Objective: 03/13/19 11:28 Vital Signs Temperature 97.3 F L 03/13/19 06:00 Pulse Rate 73 03/13/19 06:00 Respiratory Rate 18 03/13/19 06:00 Blood Pressure 105/64 03/13/19 06:00 O2 Sat by Pulse Oximetry (%) Laboratory Tests 03/12/19 16:56 POC Urine HCG, Qual Negative aaox3 ambulating no acute distress Assessment: 03/13/19 11:29 withdrawals Plan: continue detox increase fluids
[2019-03-13] MEDS: ONDANSETRON *ODT* 4 MG TABLET SL PRN (19:34)
[2019-03-13] MEDS: THIAMINE HCL 100 MG TABLET (FP) PO SCH (22:44)
[2019-03-14] MEDS: diazePAM 5 MG TABLET PO SCH ×2 (05:46→17:54)
[2019-03-14] MEDS: LURASIDONE HCL 40 MG TABLET PO SCH ×2 (10:23→22:31)
[2019-03-14] MEDS: risperiDONE 3 MG TABLET PO SCH ×2 (10:23→22:31)
[2019-03-14] MEDS: PRENATAL VITAMINS W/ FOLIC ACID TABLET (FP) PO SCH (10:23)
[2019-03-14] MEDS: CITALOPRAM HYDROBROMIDE 10 MG TABLET PO SCH (10:23)
[2019-03-14] MEDS: diazePAM 5 MG TABLET PO PRN ×2 (10:26→22:35)
--- NOTE | 2019-03-14 11:36 | PN ---
S CIWA - CIWA Score Nausea/Vomitin-No Nausea/No Vomiting Muscle Tremors: 1-None Visible, but Carmine Anxiety: 1-Mildly Anxious Agitation: 1-Slight > Activity Paroxysmal Sweats: 1-Minimal Palms Moist Orientation: 0-Oriented Tacttile Disturbances: 0-None Auditory Disturbances: 0-None Visual Disturbances: 0-None Headache: 0-None Present CIWA-Ar Total Score: 4 BHS Progress Note (SOAP) Subjective: feeling better little sweats anxiety Objective: 03/14/19 11:35 Vital Signs Temperature 98.1 F 03/14/19 10:00 Pulse Rate 77 03/14/19 10:00 Respiratory Rate 18 03/14/19 10:00 Blood Pressure 98/64 03/14/19 10:00 O2 Sat by Pulse Oximetry (%) Laboratory Tests 03/12/19 16:56 POC Urine HCG, Qual Negative aaox3 ambulating no acute distress Assessment: 03/14/19 11:36 mild withdrawals Plan: d/c in am
[2019-03-14] MEDS: ONDANSETRON *ODT* 4 MG TABLET SL PRN (20:37)
[2019-03-14] MEDS: MELATONIN 5 MG TABLETS PO PRN (22:31)
[2019-03-14] MEDS: THIAMINE HCL 100 MG TABLET (FP) PO SCH (22:31)
[2019-03-15] MEDS ORDERED: diazePAM 5 MG TABLET PO ONE (06:00)
--- NOTE | 2019-03-15 08:16 | DS ---
[facility] Detox Discharge Summary Admission Date: 03/12/19 Discharge Date: 03/15/19 - History Present History: Alcohol Dependence, Cocaine Dependence - Physical Exam Results Vital Signs: Vital Signs Temperature 97.5 F L 03/15/19 06:28 Pulse Rate 63 03/15/19 06:28 Respiratory Rate 16 03/15/19 06:28 Blood Pressure 95/65 03/15/19 06:28 O2 Sat by Pulse Oximetry (%) Pertinent Admission Physical Exam Findings: Vital Signs Temperature 97.5 F L 03/15/19 06:28 Pulse Rate 63 03/15/19 06:28 Respiratory Rate 16 03/15/19 06:28 Blood Pressure 95/65 03/15/19 06:28 O2 Sat by Pulse Oximetry (%) Laboratory Tests 03/12/19 16:56 POC Urine HCG, Qual Negative aaox3 ambulating no acute distress - Treatment Hospital Course: Detox Protocol Followed, Detoxed Safely, Responded well, Discharged Condition Good, Rehab Referral Accepted Patient has Accepted a Rehab Referral to: pt referred to [facility] inpatient rehab - Medication Discharge Medications: Ambulatory Orders Risperidone [Risperdal] 1 mg PO HS 12/21/18 Citalopram Hydrobromide [Celexa -] 10 mg PO DAILY #30 tablet 01/01/19 Risperidone [Risperdal -] 2 mg PO HS #30 tablet 01/01/19 Lurasidone HCl [Latuda -] 40 mg PO BID 03/12/19 - Diagnosis (1) Substance-induced anxiety disorder Current Visit: Yes Status: Acute (2) Nicotine dependence Current Visit: Yes Status: Chronic Qualifiers: Nicotine product type: cigarettes Substance use status: uncomplicated Qualified Code(s): F17.210 - Nicotine dependence, cigarettes, uncomplicated (3) CVA (cerebral vascular accident) Current Visit: Yes Status: Resolved (4) PTSD (post-traumatic stress disorder) Current Visit: Yes Status: Ruled-out (5) Alcohol dependence with uncomplicated withdrawal Current Visit: Yes Status: Chronic (6) Cocaine dependence Current Visit: Yes Status: Chronic Qualifiers: Substance use status: uncomplicated Qualified Code(s): F14.20 - Cocaine dependence, uncomplicated (7) Substance induced mood disorder Current Visit: No Status: Acute (8) Substance-induced anxiety disorder Current Visit: No Status: Acute (9) Substance-induced sleep disorder Current Visit: No Status: Acute (10) Syncope Current Visit: No Status: Acute (11) Bipolar 1 disorder Current Visit: No Status: Chronic (12) Bipolar disorder Current Visit: Yes Status: Chronic Qualifiers: Current episode severity: unspecified (13) COPD (chronic obstructive pulmonary disease) Current Visit: No Status: Chronic Qualifiers: COPD type: unspecified COPD Qualified Code(s): J44.9 - Chronic obstructive pulmonary disease, unspecified (14) Cannabis dependence Current Visit: No Status: Chronic (15) Depression Current Visit: No Status: Chronic Qualifiers: Depression Type: unspecified Qualified Code(s): F32.9 - Major depressive disorder, single episode, unspecified (16) GERD (gastroesophageal reflux disease) Current Visit: No Status: Chronic Qualifiers: Esophagitis presence: esophagitis presence not specified Qualified Code(s) : K21.9 - Gastro-esophageal reflux disease without esophagitis (17) History of positive PPD Current Visit: No Status: Chronic (18) Immunization, BCG Current Visit: No Status: Chronic (19) Insomnia Current Visit: No Status: Chronic Qualifiers: Insomnia type: unspecified Qualified Code(s): G47.00 - Insomnia, unspecified (20) PPD positive Current Visit: No Status: Chronic (21) Sickle cell trait Current Visit: No Status: Chronic (22) History of Frost's palsy Current Visit: No Status: Resolved - AMA Did Patient Leave Against Medical Advice: No
[2019-03-15 09:40] VITALS: BP 106/56; PULSE 58; TEMP 97.9
[2019-03-15] MEDS: risperiDONE 3 MG TABLET PO SCH (10:09)
[2019-03-15] MEDS: PRENATAL VITAMINS W/ FOLIC ACID TABLET (FP) PO SCH (10:09)
[2019-03-15] MEDS: CITALOPRAM HYDROBROMIDE 10 MG TABLET PO SCH (10:10)
[2019-03-15] MEDS: LURASIDONE HCL 40 MG TABLET PO SCH (10:10)
== END 2019-03-15 11:30 | disposition other institution (70) | DRG 774 ==
LOC: YASAS 13:08 → Y6N 18:09
PROVIDERS: ADMIT Allergy & Immunology; ATTEND Allergy & Immunology
PROC: HZ2ZZZZ Detoxification Services for Substance Abuse Treatment (ICD-10-PCS; principal; 2019-03-12)
DX: F10.230 Alcohol dependence with withdrawal, uncomplicated (principal); F14.20 Cocaine dependence, uncomplicated; F12.20 Cannabis dependence, uncomplicated; F17.210 Nicotine dependence, cigarettes, uncomplicated; F19.280 Other psychoactive substance dependence with psychoactive substance-induced anxiety disorder; F19.282 Other psychoactive substance dependence with psychoactive substance-induced sleep disorder; F19.24 Other psychoactive substance dependence with psychoactive substance-induced mood disorder; F31.9 Bipolar disorder, unspecified; J44.9 Chronic obstructive pulmonary disease, unspecified; K21.9 Gastro-esophageal reflux disease without esophagitis; G47.00 Insomnia, unspecified; D57.3 Sickle-cell trait; R76.11 Nonspecific reaction to tuberculin skin test without active tuberculosis; Z86.73 Personal history of transient ischemic attack (TIA), and cerebral infarction without residual deficits; Z88.8 Allergy status to other drugs, medicaments and biological substances
CPT/HCPCS: 81025; 94640; Q0162

== ENCOUNTER 2019-04-30 13:29 | Inpatient (IN) | payer OTHER ==
--- NOTE | 2019-04-30 14:04 | BHS.RME ---
Substance Use & Tx History - Substance Use History Alcohol Substance amount: 2-3 pints vodka Frequency of use: Daily Substance route: Oral Date of Last Use: 04/30/19 Cocaine (Crack) Substance amount: $100 Frequency of use: Daily Substance route: Smoking Date of Last Use: 04/30/19 Cannabis Substance amount: 4 blunts Frequency of use: Daily Substance route: Smoking Date of Last Use: 04/02/19 - Last Treatment Date of last treatment: 02/2019 completed Treatment type: Substance Use Disorder (CASSIE) Where was last treatment: Detox Physical/Psych/Mental Status - Behavior Eye Contact: Normal - Cooperativeness Cooperativeness: Cooperative - Thinking Thought Processes: Tight, Logical, Goal Directed Thought content: Future oriented - Physical Health Problems Is patient presently having any pain?: No Does patient presently have any injuries (include location): No Does patient currently have a fever: No Is patient : No CIWA Nausea/Vomitin Muscle Tremors: 4-Moderate,w/Arms Extend Anxiety: 3 Agitation: 3 Paroxysmal Sweats: 4-Forehead w/Sweat Beads Orientation: 0-Oriented Tacttile Disturbances: 0-None Auditory Disturbances: 0-None Visual Disturbances: 0-None Headache: 6-Very Severe CIWA-Ar Total Score: 23
[2019-04-30 14:52] VITALS: BMI 23.6
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
[2019-04-30] MEDS ORDERED: chlordiazePOXIDE HCL 25 MG CAPSULE PO PRN (15:15)
[2019-04-30] MEDS ORDERED: MAGNESIUM HYDROX 2400MG/30ML ORAL SUSPENSION 30 ML CUP PO PRN (15:15)
[2019-04-30] MEDS ORDERED: ACETAMINOPHEN 325 MG TABLET (FP) PO PRN ×2 (15:15)
[2019-04-30] MEDS ORDERED: METHOCARBAMOL 500 MG TABLET PO PRN (15:15)
[2019-04-30] MEDS ORDERED: MAG HYDROX/AL HYDROX/SIMETH 30 ML UNIT-DOSE CUP PO PRN (15:15)
[2019-04-30] MEDS ORDERED: MENTHOL/PHENOL 1 EACH UD MM PRN (15:15)
[2019-04-30] MEDS ORDERED: BISMUTH SUBSALICYLATE 262 MG/15 ML BTL PO PRN (15:15)
[2019-04-30] MEDS ORDERED: NICOTINE POLACRILEX 2 MG GUM BUC PRN (15:15)
[2019-04-30] MEDS ORDERED: MAGNESIUM CITRATE 300 ML BOTTLE PO PRN (15:15)
[2019-04-30] MEDS ORDERED: ONDANSETRON *ODT* 4 MG TABLET SL ONE (15:30)
[2019-04-30] MEDS: chlordiazePOXIDE HCL 25 MG CAPSULE PO SCH ×2 (16:52→22:19)
[2019-04-30] MEDS: hydrOXYzine PAMOATE 25 MG CAPSULE (FP) PO SCH ×2 (18:29→22:29)
[2019-04-30] MEDS: THIAMINE HCL 100 MG TABLET (FP) PO SCH (22:19)
[2019-04-30] MEDS: MELATONIN 5 MG TABLETS PO SCH (22:19)
[2019-05-01] MEDS: chlordiazePOXIDE HCL 25 MG CAPSULE PO SCH ×4 (06:16→22:13)
[2019-05-01] MEDS: hydrOXYzine PAMOATE 25 MG CAPSULE (FP) PO SCH ×3 (06:16→14:44)
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
[2019-05-01 10:37] LABS: HEMOGLOBIN 13.6 GM/dL (10.7-15.3); MCHC 33.1 g/dl (32.0-36.0); MEAN CELL VOLUME 87.6 fl (80-96); MEAN PLT VOLUME 7.2 fl (7.5-11.1); PLATELET COUNT 464 K/MM3 (134-434); RBC 4.68 M/mm3 (3.60-5.2); RDW 13.7 % (11.6-15.6); WHITE BLOOD COUNT 6.6 K/mm3 (4.0-10.0)
[2019-05-01 10:56] LABS: ALBUMIN 3.7 g/dl (3.4-5.0); BILIRUBIN,TOTAL 0.5 mg/dL (0.2-1); BLOOD UREA NITROGEN 17.1 mg/dL (7-18); CALCIUM 9.8 mg/dL (8.5-10.1); POTASSIUM 4.2 mmol/L (3.5-5.1); TOT PROT 7.8 g/dl (6.4-8.2)
[2019-05-01] MEDS: risperiDONE 2 MG TABLET PO SCH ×2 (11:54→22:13)
[2019-05-01] MEDS: risperiDONE 1 MG TABLET PO SCH ×2 (11:54→22:13)
[2019-05-01] MEDS: PRENATAL VITAMINS W/ FOLIC ACID TABLET (FP) PO SCH (11:55)
[2019-05-01] MEDS: CITALOPRAM HYDROBROMIDE 10 MG TABLET PO SCH (11:55)
[2019-05-01] MEDS: LURASIDONE HCL 40 MG TABLET PO SCH ×2 (12:02→22:14)
[2019-05-01] MEDS: NICOTINE 7 MG/24 HOURS TOPICAL PATCH TD SCH (12:02)
--- NOTE | 2019-05-01 12:52 | PN ---
S CIWA - CIWA Score Nausea/Vomitin-No Nausea/No Vomiting Muscle Tremors: 3 Anxiety: 3 Agitation: 3 Paroxysmal Sweats: 3 Orientation: 0-Oriented Tacttile Disturbances: 0-None Auditory Disturbances: 0-None Visual Disturbances: 0-None Headache: 0-None Present CIWA-Ar Total Score: 12 BHS Progress Note (SOAP) Subjective: sweats shakes body aches restless body aches Objective: 05/01/19 12:51 Vital Signs Temperature 97 F L 05/01/19 08:38 Pulse Rate 89 05/01/19 08:38 Respiratory Rate 18 05/01/19 08:38 Blood Pressure 135/73 05/01/19 08:38 O2 Sat by Pulse Oximetry (%) Laboratory Tests 05/01/19 05/01/19 05/01/19 07:30 07:30 07:30 WBC 6.6 RBC 4.68 Hgb 13.6 Hct 41.0 MCV 87.6 MCH 29.0 MCHC 33.1 RDW 13.7 Plt Count 464 H MPV 7.2 L Sodium 142 Potassium 4.2 Chloride 106 Carbon Dioxide 30 Anion Gap 7 L BUN 17.1 Creatinine 1.0 Est GFR (CKD-EPI)AfAm 74.49 Est GFR (CKD-EPI)NonAf 64.27 Random Glucose 138 H Calcium 9.8 Total Bilirubin 0.5 AST 35 ALT 20 Alkaline Phosphatase 84 Total Protein 7.8 Albumin 3.7 RPR Titer Nonreactive aaox3 ambulating no acute distress Assessment: 05/01/19 12:52 withdrawal sx Plan: continue detox increase fluid
[2019-05-01] MEDS ORDERED: hydrOXYzine PAMOATE 25 MG CAPSULE (FP) PO PRN (15:06)
[2019-05-01] MEDS: THIAMINE HCL 100 MG TABLET (FP) PO SCH (22:13)
[2019-05-01] MEDS: traZODone HCL 50 MG TABLET (FP) PO SCH (22:13)
[2019-05-01] MEDS: MELATONIN 5 MG TABLETS PO SCH (22:15)
[2019-05-02] MEDS ORDERED: chlordiazePOXIDE HCL 25 MG CAPSULE PO SCH (05:00)
[2019-05-02] MEDS: chlordiazePOXIDE 5 MG CAPSULE PO SCH ×4 (07:57→22:36)
[2019-05-02] MEDS: PRENATAL VITAMINS W/ FOLIC ACID TABLET (FP) PO SCH (10:50)
[2019-05-02] MEDS: risperiDONE 2 MG TABLET PO SCH ×2 (10:50→22:35)
[2019-05-02] MEDS: risperiDONE 1 MG TABLET PO SCH ×2 (10:51→22:35)
[2019-05-02] MEDS: CITALOPRAM HYDROBROMIDE 10 MG TABLET PO SCH (10:51)
[2019-05-02] MEDS: LURASIDONE HCL 40 MG TABLET PO SCH (10:52)
[2019-05-02] MEDS: NICOTINE 7 MG/24 HOURS TOPICAL PATCH TD SCH (10:57)
[2019-05-02] MEDS: IBUPROFEN 400 MG TABLET (FP) PO PRN ×2 (11:49→23:20)
--- NOTE | 2019-05-02 13:18 | PN ---
S CIWA - CIWA Score Nausea/Vomitin-No Nausea/No Vomiting Muscle Tremors: 2 Anxiety: 1-Mildly Anxious Agitation: 2 Paroxysmal Sweats: 2 Orientation: 0-Oriented Tacttile Disturbances: 0-None Auditory Disturbances: 0-None Visual Disturbances: 0-None Headache: 0-None Present CIWA-Ar Total Score: 7 BHS Progress Note (SOAP) Subjective: sweats shakes body aches Objective: 05/02/19 13:16 Vital Signs Temperature 98 F 05/02/19 08:35 Pulse Rate 96 H 05/02/19 08:35 Respiratory Rate 18 05/02/19 08:35 Blood Pressure 102/62 05/02/19 08:35 O2 Sat by Pulse Oximetry (%) Laboratory Tests 05/01/19 05/01/19 05/01/19 07:30 07:30 07:30 WBC 6.6 RBC 4.68 Hgb 13.6 Hct 41.0 MCV 87.6 MCH 29.0 MCHC 33.1 RDW 13.7 Plt Count 464 H MPV 7.2 L Sodium 142 Potassium 4.2 Chloride 106 Carbon Dioxide 30 Anion Gap 7 L BUN 17.1 Creatinine 1.0 Est GFR (CKD-EPI)AfAm 74.49 Est GFR (CKD-EPI)NonAf 64.27 Random Glucose 138 H Calcium 9.8 Total Bilirubin 0.5 AST 35 ALT 20 Alkaline Phosphatase 84 Total Protein 7.8 Albumin 3.7 RPR Titer Nonreactive aaox3 ambulating no acute distress Assessment: 05/02/19 13:17 withdrawal sx Plan: continue detox increase fluids
[2019-05-02] MEDS: THIAMINE HCL 100 MG TABLET (FP) PO SCH (22:36)
[2019-05-02] MEDS: traZODone HCL 50 MG TABLET (FP) PO SCH (22:36)
[2019-05-02] MEDS: MELATONIN 5 MG TABLETS PO SCH (22:41)
[2019-05-03] MEDS ORDERED: chlordiazePOXIDE HCL 10 MG CAPSULE PO PRN
[2019-05-03] MEDS: LURASIDONE HCL 40 MG TABLET PO SCH ×2 (01:30→10:52)
[2019-05-03] MEDS: chlordiazePOXIDE HCL 10 MG CAPSULE PO SCH ×2 (05:53→10:52)
[2019-05-03] MEDS: risperiDONE 1 MG TABLET PO SCH (10:52)
[2019-05-03] MEDS: NICOTINE 7 MG/24 HOURS TOPICAL PATCH TD SCH (10:52)
[2019-05-03] MEDS: CITALOPRAM HYDROBROMIDE 10 MG TABLET PO SCH (10:52)
[2019-05-03] MEDS: PRENATAL VITAMINS W/ FOLIC ACID TABLET (FP) PO SCH (10:52)
[2019-05-03] MEDS: risperiDONE 2 MG TABLET PO SCH (10:52)
[2019-05-03 11:36] VITALS: BP 92/60; PULSE 79; TEMP 98.2
--- NOTE | 2019-05-03 12:36 | PN ---
[facility] CIWA - CIWA Score Nausea/Vomitin-No Nausea/No Vomiting Muscle Tremors: 3 Anxiety: 1-Mildly Anxious Agitation: 0-Normal Activity Paroxysmal Sweats: 2 Orientation: 0-Oriented Tacttile Disturbances: 0-None Auditory Disturbances: 0-None Visual Disturbances: 0-None Headache: 0-None Present CIWA-Ar Total Score: 6 BHS COWS - Scale Resting Pulse: 0= MA 80 or Below Sweatin= Chills/Flushing Restless Observation: 1= Difficult to Sit Still Pupil Size: 0= Normal to Room Light Bone or Joint Aches: 1= Mild Discomfort Runny Nose/ Eye Tearin= None GI Upset > 30mins: 0= None Tremor Observation of Outstretched Hands: 1= Tremor [place], Not Seen Yawning Observation: 1= 1-2x During Session Anxiety or Irritability: 1=Feels Anxious/Irritable Goose Flesh Skin: 0=Smooth Skin COWS Score: 6 S Progress Note (SOAP) Subjective: sweats agitation interrupted sleep Objective: 05/03/19 12:35 Vital Signs Temperature 98.2 F 05/03/19 09:03 Pulse Rate 79 05/03/19 09:03 Respiratory Rate 18 05/03/19 09:03 Blood Pressure 92/60 05/03/19 09:03 O2 Sat by Pulse Oximetry (%) aaox3 ambulating no acute distress Assessment: 05/03/19 12:35 withdrawals Plan: continue detox
--- NOTE | 2019-05-03 14:05 | PN ---
[facility] Progress Note Note: pt did not want to stay to complete her detox. Pt states that her roommate is "farting" and she wants to leave. Pt was offered to move to another room but refused, pt was told that medication can be ordered to help with the gas but insisted that she wants to go and wants to go now. Pt is still at risk of relapse, seizures, DT, OD and or loss and chose to sign out AMA.
--- NOTE | 2019-05-03 14:08 | DS ---
[facility] Detox Discharge Summary Admission Date: 04/30/19 - History Present History: Alcohol Dependence, Cannabis Dependence, Cocaine Dependence - Physical Exam Results Vital Signs: Vital Signs Temperature 98.2 F 05/03/19 09:03 Pulse Rate 79 05/03/19 09:03 Respiratory Rate 18 05/03/19 09:03 Blood Pressure 92/60 05/03/19 09:03 O2 Sat by Pulse Oximetry (%) Pertinent Admission Physical Exam Findings: Vital Signs Temperature 98.2 F 05/03/19 09:03 Pulse Rate 79 05/03/19 09:03 Respiratory Rate 18 05/03/19 09:03 Blood Pressure 92/60 05/03/19 09:03 O2 Sat by Pulse Oximetry (%) Laboratory Tests 05/01/19 05/01/19 05/01/19 07:30 07:30 07:30 WBC 6.6 RBC 4.68 Hgb 13.6 Hct 41.0 MCV 87.6 MCH 29.0 MCHC 33.1 RDW 13.7 Plt Count 464 H MPV 7.2 L Sodium 142 Potassium 4.2 Chloride 106 Carbon Dioxide 30 Anion Gap 7 L BUN 17.1 Creatinine 1.0 Est GFR (CKD-EPI)AfAm 74.49 Est GFR (CKD-EPI)NonAf 64.27 Random Glucose 138 H Calcium 9.8 Total Bilirubin 0.5 AST 35 ALT 20 Alkaline Phosphatase 84 Total Protein 7.8 Albumin 3.7 RPR Titer Nonreactive aaox3 ambulating pt refused to stay and continue her detox; pt chose to sign out AMA. - Treatment Hospital Course: Discharged Condition Good, Rehab Referral Accepted - Medication Discharge Medications: Ambulatory Orders Risperidone [Risperdal] 1 mg PO BID 12/21/18 Citalopram Hydrobromide [Celexa -] 10 mg PO DAILY #30 tablet 01/01/19 Lurasidone HCl [Latuda -] 40 mg PO BID 03/12/19 Risperidone [Risperdal -] 2 mg PO BID 04/30/19 traZODone HCL [Trazodone HCl] 50 mg PO HS 04/30/19 - Diagnosis (1) Alcohol dependence with uncomplicated withdrawal Current Visit: Yes Status: Chronic (2) Substance induced mood disorder Current Visit: Yes Status: Acute (3) Substance-induced sleep disorder Current Visit: Yes Status: Acute (4) Arthritis of right knee Current Visit: Yes Status: Chronic (5) Bipolar disorder Current Visit: Yes Status: Chronic (6) Nicotine dependence Current Visit: Yes Status: Chronic Qualifiers: Nicotine product type: cigarettes Substance use status: uncomplicated Qualified Code(s): F17.210 - Nicotine dependence, cigarettes, uncomplicated (7) Sciatica Current Visit: Yes Status: Chronic (8) Cannabis dependence Current Visit: Yes Status: Chronic (9) Cocaine dependence Current Visit: Yes Status: Chronic Qualifiers: Substance use status: uncomplicated Qualified Code(s): F14.20 - Cocaine dependence, uncomplicated (10) Substance induced mood disorder Current Visit: No Status: Acute (11) Substance-induced anxiety disorder Current Visit: No Status: Acute (12) Substance-induced anxiety disorder Current Visit: No Status: Acute (13) Substance-induced sleep disorder Current Visit: No Status: Acute (14) Syncope Current Visit: No Status: Acute (15) Bipolar 1 disorder Current Visit: No Status: Chronic (16) Bipolar disorder Current Visit: No Status: Chronic Qualifiers: Current episode severity: unspecified (17) COPD (chronic obstructive pulmonary disease) Current Visit: No Status: Chronic Qualifiers: COPD type: unspecified COPD Qualified Code(s): J44.9 - Chronic obstructive pulmonary disease, unspecified (18) Depression Current Visit: No Status: Chronic Qualifiers: Depression Type: unspecified Qualified Code(s): F32.9 - Major depressive disorder, single episode, unspecified (19) GERD (gastroesophageal reflux disease) Current Visit: No Status: Chronic Qualifiers: Esophagitis presence: esophagitis presence not specified Qualified Code(s): K21.9 - Gastro-esophageal reflux disease without esophagitis (20) History of positive PPD Current Visit: No Status: Chronic (21) Immunization, BCG Current Visit: No Status: Chronic (22) Insomnia Current Visit: No Status: Chronic Qualifiers: Insomnia type: unspecified Qualified Code(s): G47.00 - Insomnia, unspecified (23) PPD positive Current Visit: No Status: Chronic (24) PTSD (post-traumatic stress disorder) Current Visit: No Status: Chronic (25) Sickle cell trait Current Visit: No Status: Chronic (26) CVA (cerebral vascular accident) Current Visit: No Status: Resolved (27) History of Frost's palsy Current Visit: No Status: Resolved - AMA Did Patient Leave Against Medical Advice: Yes
[2019-05-04] MEDS ORDERED: chlordiazePOXIDE HCL 10 MG CAPSULE PO SCH (05:00)
[2019-05-05] MEDS ORDERED: chlordiazePOXIDE HCL 10 MG CAPSULE PO ONE (05:00)
== END 2019-05-03 14:28 | disposition left against medical advice (07) | DRG 770 ==
LOC: YASAS 13:29 → Y6N 15:03
PROVIDERS: ADMIT Allergy & Immunology; ATTEND Allergy & Immunology
PROC: HZ2ZZZZ Detoxification Services for Substance Abuse Treatment (ICD-10-PCS; principal; 2019-04-30)
DX: F10.230 Alcohol dependence with withdrawal, uncomplicated (principal); F14.20 Cocaine dependence, uncomplicated; F12.20 Cannabis dependence, uncomplicated; F17.210 Nicotine dependence, cigarettes, uncomplicated; F19.24 Other psychoactive substance dependence with psychoactive substance-induced mood disorder; F19.282 Other psychoactive substance dependence with psychoactive substance-induced sleep disorder; F19.280 Other psychoactive substance dependence with psychoactive substance-induced anxiety disorder; F31.9 Bipolar disorder, unspecified; F20.89 Other schizophrenia; F90.9 Attention-deficit hyperactivity disorder, unspecified type; K21.9 Gastro-esophageal reflux disease without esophagitis; D57.3 Sickle-cell trait; J44.9 Chronic obstructive pulmonary disease, unspecified; M54.30 Sciatica, unspecified side; M17.11 Unilateral primary osteoarthritis, right knee; R76.11 Nonspecific reaction to tuberculin skin test without active tuberculosis; Z86.69 Personal history of other diseases of the nervous system and sense organs; Z86.79 Personal history of other diseases of the circulatory system; Z62.810 Personal history of physical and sexual abuse in childhood; Z91.410 Personal history of adult physical and sexual abuse; Z87.828 Personal history of other (healed) physical injury and trauma; Z87.820 Personal history of traumatic brain injury
CPT/HCPCS: 36415; 80053; 85027; 86593; J2794; Q0162

== ENCOUNTER 2019-08-21 10:32 | Inpatient (IN) | payer OTHER ==
--- NOTE | 2019-08-21 11:06 | BHS.RME ---
Substance Use & Tx History - Substance Use History Alcohol Substance amount: 2 pints vodka Frequency of use: Daily Substance route: Oral Date of Last Use: 08/21/19 Cocaine-Crack Substance amount: $50 Frequency of use: Daily Substance route: Smoking Date of Last Use: 08/21/19 Nicotine Substance amount: 1/2 pack Frequency of use: Daily Substance route: Smoking Date of Last Use: 08/21/19 - Last Treatment Date of last treatment: 07/07-07/13/19 Treatment type: Substance Use Disorder (CASSIE) Where was last treatment: Detox Physical/Psych/Mental Status - Behavior General Behavior: Increased activity (restlessness, agitation) Eye Contact: Normal - Cooperativeness Cooperativeness: Cooperative - Thinking Thought Processes: Tight, Logical, Goal Directed - Physical Health Problems Is patient presently having any pain?: No Does patient presently have any injuries (include location): No Does patient currently have a fever: No Is patient : No CIWA Nausea/Vomitin Muscle Tremors: 3 Anxiety: 4-Mod. Anxious/Guarded Agitation: 3 Paroxysmal Sweats: 4-Forehead w/Sweat Beads Orientation: 1-Uncertain about Date Tacttile Disturbances: 1-Very Mild Itch/Numbness Auditory Disturbances: 0-None Visual Disturbances: 0-None Headache: 3-Moderate CIWA-Ar Total Score: 22
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
[2019-08-21] MEDS ORDERED: NICOTINE POLACRILEX 2 MG GUM BUC PRN (11:42)
[2019-08-21] MEDS ORDERED: MENTHOL/PHENOL 1 EACH UD MM PRN (11:42)
[2019-08-21] MEDS ORDERED: MAGNESIUM CITRATE 300 ML BOTTLE PO PRN (11:42)
[2019-08-21] MEDS ORDERED: ACETAMINOPHEN 325 MG TABLET (FP) PO PRN ×2 (11:42)
[2019-08-21] MEDS ORDERED: MAGNESIUM HYDROX 2400MG/30ML ORAL SUSPENSION 30 ML CUP PO PRN (11:42)
[2019-08-21] MEDS ORDERED: chlordiazePOXIDE HCL 25 MG CAPSULE PO PRN (11:42)
[2019-08-21] MEDS ORDERED: ONDANSETRON *ODT* 4 MG TABLET SL PRN (11:42)
[2019-08-21] MEDS ORDERED: MAG HYDROX/AL HYDROX/SIMETH 30 ML UNIT-DOSE CUP PO PRN (11:42)
[2019-08-21] MEDS ORDERED: BISMUTH SUBSALICYLATE 262 MG/15 ML BTL PO PRN (11:42)
[2019-08-21] MEDS ORDERED: NICOTINE 7 MG/24 HOURS TOPICAL PATCH TD SCH (11:45)
[2019-08-21 11:57] VITALS: BMI 21.2
[2019-08-21] MEDS: NICOTINE 14 MG/24 HOURS TOPICAL PATCH TD SCH (12:42)
[2019-08-21] MEDS: PRENATAL VITAMINS W/ FOLIC ACID TABLET (FP) PO SCH (12:42)
[2019-08-21] MEDS ORDERED: hydrOXYzine PAMOATE 25 MG CAPSULE (FP) PO PRN (12:42)
[2019-08-21] MEDS ORDERED: hydrOXYzine PAMOATE 25 MG CAPSULE (FP) PO SCH (14:00)
[2019-08-21] MEDS: chlordiazePOXIDE HCL 25 MG CAPSULE PO SCH ×2 (16:59→22:58)
[2019-08-21] MEDS: METHOCARBAMOL 500 MG TABLET PO PRN ×2 (16:59→23:06)
[2019-08-21 18:07] LABS: HEMATOCRIT 42.3 % (32.4-45.2); HEMOGLOBIN 13.8 GM/dL (10.7-15.3); MCH 29.4 pg (25.7-33.7); MCHC 32.6 g/dl (32.0-36.0); MEAN CELL VOLUME 90.1 fl (80-96); MEAN PLT VOLUME 7.7 fl (7.5-11.1); PLATELET COUNT 490 K/MM3 (134-434); RDW 14.3 % (11.6-15.6); WHITE BLOOD COUNT 9.7 K/mm3 (4.0-10.0)
[2019-08-21 18:16] LABS: ALBUMIN 4.2 g/dl (3.4-5.0); BILIRUBIN,TOTAL 0.5 mg/dL (0.2-1); BLOOD UREA NITROGEN 10.6 mg/dL (7-18); CALCIUM 9.4 mg/dL (8.5-10.1); CREATININE 0.8 mg/dL (0.55-1.3); POTASSIUM 3.5 mmol/L (3.5-5.1); TOT PROT 8.3 g/dl (6.4-8.2)
--- NOTE | 2019-08-21 21:08 | PN ---
[facility] Progress Note Note: Patient was seen at bedside for Reactive syphilis result. Titers pending. Patient denies history of syphilis or any sexually transmitted disease at this time. She states that she has not been sexually for about a year. She reports history of chlamydia and states that she was treated and that she completed her prescribed medications. Importance of protective sex / abstinence discussed with patient. Vital Signs Temperature 97.8 F 08/21/19 16:54 Pulse Rate 76 08/21/19 16:54 Respiratory Rate 18 08/21/19 16:54 Blood Pressure 106/65 08/21/19 16:54 O2 Sat by Pulse Oximetry (%) 99 08/21/19 12:28 Laboratory Last Values WBC 9.7 K/mm3 (4.0-10.0) 08/21/19 12:25 RBC 4.70 M/mm3 (3.60-5.2) 08/21/19 12:25 Hgb 13.8 GM/dL (10.7-15.3) 08/21/19 12:25 Hct 42.3 % (32.4-45.2) 08/21/19 12:25 MCV 90.1 fl (80-96) 08/21/19 12:25 MCH 29.4 pg (25.7-33.7) 08/21/19 12:25 MCHC 32.6 g/dl (32.0-36.0) 08/21/19 12:25 RDW 14.3 % (11.6-15.6) 08/21/19 12:25 Plt Count 490 K/MM3 (134-434) H 08/21/19 12:25 MPV 7.7 fl (7.5-11.1) 08/21/19 12:25 Sodium 141 mmol/L (136-145) 08/21/19 12:25 Potassium 3.5 mmol/L (3.5-5.1) 08/21/19 12:25 Chloride 107 mmol/L (98-107) 08/21/19 12:25 Carbon Dioxide 25 mmol/L (21-32) 08/21/19 12:25 Anion Gap 9 MMOL/L (8-16) 08/21/19 12:25 BUN 10.6 mg/dL (7-18) 08/21/19 12:25 Creatinine 0.8 mg/dL (0.55-1.3) 08/21/19 12:25 Est GFR (CKD-EPI)AfAm 97.55 08/21/19 12:25 Est GFR (CKD-EPI)NonAf 84.17 08/21/19 12:25 Random Glucose 55 mg/dL (74-106) L 08/21/19 12:25 Calcium 9.4 mg/dL (8.5-10.1) 08/21/19 12:25 Total Bilirubin 0.5 mg/dL (0.2-1) 08/21/19 12:25 AST 14 U/L (15-37) L 08/21/19 12:25 ALT 15 U/L (13-61) 08/21/19 12:25 Alkaline Phosphatase 70 U/L (45-117) 08/21/19 12:25 Total Protein 8.3 g/dl (6.4-8.2) H 08/21/19 12:25 Albumin 4.2 g/dl (3.4-5.0) 08/21/19 12:25 Syphilis Serology Reactive (NONREACTIVE) A* 08/21/19 12:25 HIV Ag/Ab Combo Qual Negative (NEGATIVE) 08/21/19 12:25 Action: Will endorse to unit attending / provider to follow up with patient
[2019-08-21] MEDS: MELATONIN 5 MG TABLETS PO SCH (22:32)
[2019-08-21] MEDS: THIAMINE HCL 100 MG TABLET (FP) PO SCH (22:32)
[2019-08-22] MEDS: chlordiazePOXIDE HCL 25 MG CAPSULE PO SCH ×5 (06:35→23:17)
[2019-08-22] MEDS: METHOCARBAMOL 500 MG TABLET PO PRN (09:05)
[2019-08-22] MEDS: PRENATAL VITAMINS W/ FOLIC ACID TABLET (FP) PO SCH (10:51)
[2019-08-22] MEDS: NICOTINE 14 MG/24 HOURS TOPICAL PATCH TD SCH (10:52)
--- NOTE | 2019-08-22 12:18 | PN ---
[facility] CIWA - CIWA Score Nausea/Vomitin-No Nausea/No Vomiting Muscle Tremors: 3 Anxiety: 3 Agitation: 3 Paroxysmal Sweats: 3 Orientation: 0-Oriented Tacttile Disturbances: 0-None Auditory Disturbances: 0-None Visual Disturbances: 0-None Headache: 0-None Present CIWA-Ar Total Score: 12 S Progress Note (SOAP) Subjective: teary because of the news she was told and was woken up last night and it was very upsetting sweats shakes body aches irritable Objective: 08/22/19 12:14 Vital Signs Temperature 97.7 F 08/22/19 08:50 Pulse Rate 59 L 08/22/19 08:50 Respiratory Rate 16 08/22/19 08:50 Blood Pressure 91/58 L 08/22/19 08:50 O2 Sat by Pulse Oximetry (%) 97 08/22/19 05:59 Laboratory Tests 08/21/19 08/21/19 08/21/19 12:25 12:25 12:25 WBC 9.7 RBC 4.70 Hgb 13.8 Hct 42.3 MCV 90.1 MCH 29.4 MCHC 32.6 RDW 14.3 Plt Count 490 H MPV 7.7 Sodium 141 Potassium 3.5 Chloride 107 Carbon Dioxide 25 Anion Gap 9 BUN 10.6 Creatinine 0.8 Est GFR (CKD-EPI)AfAm 97.55 Est GFR (CKD-EPI)NonAf 84.17 Random Glucose 55 L Calcium 9.4 Total Bilirubin 0.5 AST 14 L ALT 15 Alkaline Phosphatase 70 Total Protein 8.3 H Albumin 4.2 Syphilis Serology Reactive A* HIV Ag/Ab Combo Qual 08/21/19 12:25 WBC RBC Hgb Hct MCV MCH MCHC RDW Plt Count MPV Sodium Potassium Chloride Carbon Dioxide Anion Gap BUN Creatinine Est GFR (CKD-EPI)AfAm Est GFR (CKD-EPI)NonAf Random Glucose Calcium Total Bilirubin AST ALT Alkaline Phosphatase Total Protein Albumin Syphilis Serology HIV Ag/Ab Combo Qual Negative labs noted syphilis titer still pending aaox3 ambulating no acute distress Assessment: 08/22/19 12:15 withdrawals pt made it aware that the result for the syphilis is inaccurate and must be a mistake..pt was made aware of pending titer and a repeat lab may be necessary and she is in agreement. pt is very upset because she never was told ever having syphilis nor was it ever and issue in her recent visits. it was confirmed on her most recent detox that this pt was neg for syphilis and non reactive. will continue to f/u Plan: continue detox
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
[2019-08-22] MEDS: risperiDONE 3 MG TABLET PO SCH (22:12)
[2019-08-22] MEDS: LURASIDONE HCL 40 MG TABLET PO SCH (22:12)
[2019-08-22] MEDS: THIAMINE HCL 100 MG TABLET (FP) PO SCH (22:12)
[2019-08-22] MEDS: traZODone HCL 50 MG TABLET (FP) PO SCH (22:12)
[2019-08-22] MEDS: MELATONIN 5 MG TABLETS PO SCH (22:13)
[2019-08-23] MEDS: chlordiazePOXIDE HCL 25 MG CAPSULE PO SCH ×4 (06:10→22:24)
[2019-08-23] MEDS: CITALOPRAM HYDROBROMIDE 10 MG TABLET PO SCH (10:55)
[2019-08-23] MEDS: PRENATAL VITAMINS W/ FOLIC ACID TABLET (FP) PO SCH (10:56)
[2019-08-23] MEDS: IBUPROFEN 400 MG TABLET (FP) PO PRN (10:58)
[2019-08-23] MEDS: METHOCARBAMOL 500 MG TABLET PO PRN (10:58)
[2019-08-23] MEDS: NICOTINE 14 MG/24 HOURS TOPICAL PATCH TD SCH (11:48)
--- NOTE | 2019-08-23 12:26 | PN ---
S CIWA - CIWA Score Nausea/Vomitin-No Nausea/No Vomiting Muscle Tremors: 2 Anxiety: 2 Agitation: 2 Paroxysmal Sweats: 2 Orientation: 0-Oriented Tacttile Disturbances: 0-None Auditory Disturbances: 0-None Visual Disturbances: 0-None Headache: 0-None Present CIWA-Ar Total Score: 8 [facility] Progress Note (SOAP) Subjective: sweats feeling better body aches Objective: 08/23/19 12:25 Vital Signs Temperature 97.6 F 08/23/19 08:57 Pulse Rate 72 08/23/19 08:57 Respiratory Rate 19 08/23/19 08:57 Blood Pressure 89/62 L 08/23/19 08:57 O2 Sat by Pulse Oximetry (%) 98 08/23/19 06:43 Laboratory Tests 08/21/19 08/21/19 08/21/19 11:48 12:00 12:25 WBC 9.7 RBC 4.70 Hgb 13.8 Hct 42.3 MCV 90.1 MCH 29.4 MCHC 32.6 RDW 14.3 Plt Count 490 H MPV 7.7 Sodium Potassium Chloride Carbon Dioxide Anion Gap BUN Creatinine Est GFR (CKD-EPI)AfAm Est GFR (CKD-EPI)NonAf Random Glucose Calcium Total Bilirubin AST ALT Alkaline Phosphatase Total Protein Albumin POC Urine HCG, Qual Negative Syphilis Serology RPR Titer COVID-19 (WILD) Not detected HIV Ag/Ab Combo Qual 08/21/19 08/21/19 08/21/19 12:25 12:25 12:25 WBC RBC Hgb Hct MCV MCH MCHC RDW Plt Count MPV Sodium 141 Potassium 3.5 Chloride 107 Carbon Dioxide 25 Anion Gap 9 BUN 10.6 Creatinine 0.8 Est GFR (CKD-EPI)AfAm 97.55 Est GFR (CKD-EPI)NonAf 84.17 Random Glucose 55 L Calcium 9.4 Total Bilirubin 0.5 AST 14 L ALT 15 Alkaline Phosphatase 70 Total Protein 8.3 H Albumin 4.2 POC Urine HCG, Qual Syphilis Serology Reactive A* RPR Titer COVID-19 (WILD) HIV Ag/Ab Combo Qual Negative 08/21/19 08/23/19 08/23/19 12:25 07:30 07:30 WBC RBC Hgb Hct MCV MCH MCHC RDW Plt Count MPV Sodium Potassium Chloride Carbon Dioxide Anion Gap BUN Creatinine Est GFR (CKD-EPI)AfAm Est GFR (CKD-EPI)NonAf Random Glucose Calcium Total Bilirubin AST ALT Alkaline Phosphatase Total Protein Albumin POC Urine HCG, Qual Syphilis Serology Reactive A* RPR Titer Nonreactive Nonreactive COVID-19 (WILD) HIV Ag/Ab Combo Qual labs noted RPR titer is non-reactive aaox3 ambulating no acute distress Assessment: 08/23/19 12:26 mild withdrawals Plan: continue detox
[2019-08-23] MEDS: risperiDONE 3 MG TABLET PO SCH (22:22)
[2019-08-23] MEDS: THIAMINE HCL 100 MG TABLET (FP) PO SCH (22:22)
[2019-08-23] MEDS: LURASIDONE HCL 40 MG TABLET PO SCH (22:22)
[2019-08-23] MEDS: traZODone HCL 50 MG TABLET (FP) PO SCH (22:22)
[2019-08-23] MEDS: MELATONIN 5 MG TABLETS PO SCH (22:24)
[2019-08-24] MEDS ORDERED: chlordiazePOXIDE HCL 10 MG CAPSULE PO PRN
[2019-08-24] MEDS: chlordiazePOXIDE HCL 10 MG CAPSULE PO SCH ×4 (06:46→22:23)
[2019-08-24] MEDS: CITALOPRAM HYDROBROMIDE 10 MG TABLET PO SCH (10:29)
[2019-08-24] MEDS: NICOTINE 14 MG/24 HOURS TOPICAL PATCH TD SCH (10:29)
[2019-08-24] MEDS: PRENATAL VITAMINS W/ FOLIC ACID TABLET (FP) PO SCH (10:30)
--- NOTE | 2019-08-24 18:23 | PN ---
S CIWA - CIWA Score Nausea/Vomitin-No Nausea/No Vomiting Muscle Tremors: None Anxiety: 4-Mod. Anxious/Guarded Agitation: 2 Paroxysmal Sweats: No Perspiration Orientation: 0-Oriented Tacttile Disturbances: 0-None Auditory Disturbances: 0-None Visual Disturbances: 2-Mild Sensitivity Headache: 0-None Present CIWA-Ar Total Score: 8 BHS Progress Note (SOAP) Subjective: Anxious, Fatigue. Objective: Patient A & O X 3, Observed Ambulating on Detox Unit Unassisted. In No Acute Distress. 08/24/19 18:17 Vital Signs Temperature 97.7 F 08/24/19 12:36 Pulse Rate 69 08/24/19 12:36 Respiratory Rate 16 08/24/19 12:36 Blood Pressure 100/68 08/24/19 12:36 O2 Sat by Pulse Oximetry (%) 97 08/24/19 12:36 Laboratory Tests 08/21/19 08/21/19 08/21/19 11:48 12:00 12:25 WBC 9.7 RBC 4.70 Hgb 13.8 Hct 42.3 MCV 90.1 MCH 29.4 MCHC 32.6 RDW 14.3 Plt Count 490 H MPV 7.7 Sodium Potassium Chloride Carbon Dioxide Anion Gap BUN Creatinine Est GFR (CKD-EPI)AfAm Est GFR (CKD-EPI)NonAf Random Glucose Calcium Total Bilirubin AST ALT Alkaline Phosphatase Total Protein Albumin POC Urine HCG, Qual Negative Syphilis Serology RPR Titer T.pallidum Ab Interpret COVID-19 (WILD) Not detected HIV Ag/Ab Combo Qual 08/21/19 08/21/19 08/21/19 12:25 12:25 12:25 WBC RBC Hgb Hct MCV MCH MCHC RDW Plt Count MPV Sodium 141 Potassium 3.5 Chloride 107 Carbon Dioxide 25 Anion Gap 9 BUN 10.6 Creatinine 0.8 Est GFR (CKD-EPI)AfAm 97.55 Est GFR (CKD-EPI)NonAf 84.17 Random Glucose 55 L Calcium 9.4 Total Bilirubin 0.5 AST 14 L ALT 15 Alkaline Phosphatase 70 Total Protein 8.3 H Albumin 4.2 POC Urine HCG, Qual Syphilis Serology Reactive A* RPR Titer T.pallidum Ab Interpret COVID-19 (WILD) HIV Ag/Ab Combo Qual Negative 08/21/19 08/21/19 08/23/19 12:25 12:25 07:30 WBC RBC Hgb Hct MCV MCH MCHC RDW Plt Count MPV Sodium Potassium Chloride Carbon Dioxide Anion Gap BUN Creatinine Est GFR (CKD-EPI)AfAm Est GFR (CKD-EPI)NonAf Random Glucose Calcium Total Bilirubin AST ALT Alkaline Phosphatase Total Protein Albumin POC Urine HCG, Qual Syphilis Serology Reactive A* RPR Titer Nonreactive T.pallidum Ab Interpret Positive H COVID-19 (WILD) HIV Ag/Ab Combo Qual 08/23/19 08/23/19 07:30 07:30 WBC RBC Hgb Hct MCV MCH MCHC RDW Plt Count MPV Sodium Potassium Chloride Carbon Dioxide Anion Gap BUN Creatinine Est GFR (CKD-EPI)AfAm Est GFR (CKD-EPI)NonAf Random Glucose Calcium Total Bilirubin AST ALT Alkaline Phosphatase Total Protein Albumin POC Urine HCG, Qual Syphilis Serology RPR Titer Nonreactive T.pallidum Ab Interpret Non reactive COVID-19 (WILD) HIV Ag/Ab Combo Qual Lab Results noted. Assessment: 08/24/19 18:18 WITHDRAWAL SYMPTOMS. Plan: Continue Detox. Results of Repeat RPR noted. T. Pallidum Interpretation Result: NON-REACTIVE. Patient denies known history of Syphilis or of Treatment for Syphilis. Patient advised to follow-up with Primary Care Medical Provider (Dr. Aceves, [place], [place]) after Discharge from Detox for general medical assessment and for results of RPR laboratory testing noted on detox laboratory assessment. Patient verbalized understanding of recommendation. Copies of results of all labs drawn while admitted for detox given to patient at time of discharge from detox unit.
[2019-08-24] MEDS: METHOCARBAMOL 500 MG TABLET PO PRN (18:24)
[2019-08-24] MEDS: IBUPROFEN 400 MG TABLET (FP) PO PRN (18:24)
[2019-08-24] MEDS: LURASIDONE HCL 40 MG TABLET PO SCH (22:24)
[2019-08-24] MEDS: traZODone HCL 50 MG TABLET (FP) PO SCH (22:24)
[2019-08-24] MEDS: THIAMINE HCL 100 MG TABLET (FP) PO SCH (22:24)
[2019-08-24] MEDS: risperiDONE 3 MG TABLET PO SCH (22:25)
[2019-08-24] MEDS: MELATONIN 5 MG TABLETS PO SCH (22:27)
[2019-08-25] MEDS ORDERED: chlordiazePOXIDE HCL 10 MG CAPSULE PO SCH (05:00)
[2019-08-25 06:24] VITALS: BP 97/57; PULSE 69; TEMP 97.7
--- NOTE | 2019-08-25 17:30 | DS ---
[facility] Detox Discharge Summary Admission Date: 08/21/19 Discharge Date: 08/25/19 - History Present History: Alcohol Dependence, Cocaine Dependence Additional Comments: Patient completed detox successfully, discharged safely in stable condition. Instructed to follow up with her PCP within 1-2 weeks Pertinent Past History: Arthritis right knee Right sciatica COPD PPD + hx - Physical Exam Results Vital Signs: Vital Signs Temperature 97.7 F 08/25/19 05:46 Pulse Rate 69 08/25/19 05:46 Respiratory Rate 16 08/25/19 05:46 Blood Pressure 97/57 L 08/25/19 05:46 O2 Sat by Pulse Oximetry (%) 96 08/25/19 05:46 Pertinent Admission Physical Exam Findings: Withdrawal sxs Laboratory Tests 08/21/19 08/21/19 08/21/19 11:48 12:00 12:25 WBC 9.7 RBC 4.70 Hgb 13.8 Hct 42.3 MCV 90.1 MCH 29.4 MCHC 32.6 RDW 14.3 Plt Count 490 H MPV 7.7 Sodium Potassium Chloride Carbon Dioxide Anion Gap BUN Creatinine Est GFR (CKD-EPI)AfAm Est GFR (CKD-EPI)NonAf Random Glucose Calcium Total Bilirubin AST ALT Alkaline Phosphatase Total Protein Albumin POC Urine HCG, Qual Negative Syphilis Serology RPR Titer T.pallidum Ab Interpret COVID-19 (WILD) Not detected HIV Ag/Ab Combo Qual 08/21/19 08/21/19 08/21/19 12:25 12:25 12:25 WBC RBC Hgb Hct MCV MCH MCHC RDW Plt Count MPV Sodium 141 Potassium 3.5 Chloride 107 Carbon Dioxide 25 Anion Gap 9 BUN 10.6 Creatinine 0.8 Est GFR (CKD-EPI)AfAm 97.55 Est GFR (CKD-EPI)NonAf 84.17 Random Glucose 55 L Calcium 9.4 Total Bilirubin 0.5 AST 14 L ALT 15 Alkaline Phosphatase 70 Total Protein 8.3 H Albumin 4.2 POC Urine HCG, Qual Syphilis Serology Reactive A* RPR Titer T.pallidum Ab Interpret COVID-19 (WILD) HIV Ag/Ab Combo Qual Negative 08/21/19 08/21/19 08/23/19 12:25 12:25 07:30 WBC RBC Hgb Hct MCV MCH MCHC RDW Plt Count MPV Sodium Potassium Chloride Carbon Dioxide Anion Gap BUN Creatinine Est GFR (CKD-EPI)AfAm Est GFR (CKD-EPI)NonAf Random Glucose Calcium Total Bilirubin AST ALT Alkaline Phosphatase Total Protein Albumin POC Urine HCG, Qual Syphilis Serology Reactive A* RPR Titer Nonreactive T.pallidum Ab Interpret Positive H COVID-19 (WILD) HIV Ag/Ab Combo Qual 08/23/19 08/23/19 07:30 07:30 WBC RBC Hgb Hct MCV MCH MCHC RDW Plt Count MPV Sodium Potassium Chloride Carbon Dioxide Anion Gap BUN Creatinine Est GFR (CKD-EPI)AfAm Est GFR (CKD-EPI)NonAf Random Glucose Calcium Total Bilirubin AST ALT Alkaline Phosphatase Total Protein Albumin POC Urine HCG, Qual Syphilis Serology RPR Titer Nonreactive T.pallidum Ab Interpret Non reactive COVID-19 (WILD) HIV Ag/Ab Combo Qual Labs reviewed - Treatment Hospital Course: Detox Protocol Followed, Detoxed Safely, Responded well, Discharged Condition Good - Medication Discharge Medications: Ambulatory Orders Citalopram Hydrobromide [Celexa -] 10 mg PO DAILY #30 tablet 01/01/19 Lurasidone HCl [Latuda -] 40 mg PO BID 03/12/19 Risperidone [Risperdal -] 3 mg PO BID 04/30/19 traZODone HCL [Trazodone HCl] 50 mg PO HS 04/30/19 Pantoprazole Sodium [Protonix -] 20 mg PO DAILY 07/08/19 - Diagnosis (1) Alcohol dependence with uncomplicated withdrawal Status: Acute (2) Cocaine dependence Status: Chronic Qualifiers: Substance use status: uncomplicated Qualified Code(s): F14.20 - Cocaine dependence, uncomplicated (3) Bipolar disorder Status: Chronic (4) COPD (chronic obstructive pulmonary disease) Status: Chronic Qualifiers: COPD type: unspecified COPD Qualified Code(s): J44.9 - Chronic obstructive pulmonary disease, unspecified (5) Depression Status: Chronic Qualifiers: Depression Type: unspecified Qualified Code(s): F32.9 - Major depressive disorder, single episode, unspecified (6) History of positive PPD Status: Chronic (7) Sciatica Status: Chronic - AMA Did Patient Leave Against Medical Advice: No (Follow up with PCP within 1-2 weeks)
[2019-08-26] MEDS ORDERED: chlordiazePOXIDE HCL 10 MG CAPSULE PO ONE (05:00)
== END 2019-08-25 09:37 | disposition home or self-care (01) | DRG 774 ==
LOC: YASAS 10:32 → Y6N 11:30
PROVIDERS: ADMIT Allergy & Immunology; ATTEND Allergy & Immunology
PROC: HZ2ZZZZ Detoxification Services for Substance Abuse Treatment (ICD-10-PCS; principal; 2019-08-21)
DX: F10.230 Alcohol dependence with withdrawal, uncomplicated (principal); F14.20 Cocaine dependence, uncomplicated; F17.210 Nicotine dependence, cigarettes, uncomplicated; F31.9 Bipolar disorder, unspecified; F19.24 Other psychoactive substance dependence with psychoactive substance-induced mood disorder; F19.282 Other psychoactive substance dependence with psychoactive substance-induced sleep disorder; F43.10 Post-traumatic stress disorder, unspecified; J44.9 Chronic obstructive pulmonary disease, unspecified; R76.11 Nonspecific reaction to tuberculin skin test without active tuberculosis; M54.30 Sciatica, unspecified side; D57.3 Sickle-cell trait; M17.11 Unilateral primary osteoarthritis, right knee; Z88.8 Allergy status to other drugs, medicaments and biological substances; Z91.010 Allergy to peanuts; Z87.42 Personal history of other diseases of the female genital tract; Z86.69 Personal history of other diseases of the nervous system and sense organs; Z86.73 Personal history of transient ischemic attack (TIA), and cerebral infarction without residual deficits; Z62.810 Personal history of physical and sexual abuse in childhood; Z91.5 Personal history of self-harm
CPT/HCPCS: 36415; 71046-TC-FY; 80053; 81025; 85027; 86593; 86780; 87389; U0003

== ENCOUNTER 2019-10-12 10:25 | Inpatient (IN) | payer OTHER ==
--- NOTE | 2019-10-12 13:00 | BHS.RME ---
Substance Use & Tx History - Substance Use History Alcohol Substance amount: 1 pint of rum/ 2of 24 ozs of beer Frequency of use: Daily Substance route: Oral Date of Last Use: 10/12/19 Ecstasy Frequency of use: Daily Cocaine-Crack Substance amount: 100$ Frequency of use: Daily Substance route: Smoking Date of Last Use: 10/12/19 - Last Treatment Date of last treatment: [facility] 08/21/19 to 08/25/19 Where was last treatment: Detox Physical/Psych/Mental Status - Behavior Eye Contact: Normal - Cooperativeness Cooperativeness: Cooperative - Thinking Thought Processes: Logical Thought content: Future oriented - Physical Health Problems Is patient presently having any pain?: No Does patient presently have any injuries (include location): No Does patient currently have a fever: No CIWA Nausea/Vomitin Muscle Tremors: 3 Anxiety: 2 Agitation: 3 Paroxysmal Sweats: 1-Minimal Palms Moist Orientation: 0-Oriented Tacttile Disturbances: 1-Very Mild Itch/Numbness Auditory Disturbances: 0-None Visual Disturbances: 0-None Headache: 2-Mild CIWA-Ar Total Score: 14
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
[2019-10-12] MEDS ORDERED: NICOTINE POLACRILEX 2 MG GUM BUC PRN (13:23)
[2019-10-12] MEDS ORDERED: MAG HYDROX/AL HYDROX/SIMETH 30 ML UNIT-DOSE CUP PO PRN (13:23)
[2019-10-12] MEDS ORDERED: chlordiazePOXIDE HCL 25 MG CAPSULE PO PRN (13:23)
[2019-10-12] MEDS ORDERED: BISMUTH SUBSALICYLATE 524 MG/30 ML UD PO PRN (13:23)
[2019-10-12] MEDS ORDERED: ONDANSETRON *ODT* 4 MG TABLET SL ONE (13:23)
[2019-10-12] MEDS ORDERED: MAGNESIUM HYDROX 2400MG/30ML ORAL SUSPENSION 30 ML CUP PO PRN (13:23)
[2019-10-12] MEDS ORDERED: MENTHOL/PHENOL 1 EACH UD MM PRN (13:23)
[2019-10-12] MEDS ORDERED: ACETAMINOPHEN 325 MG TABLET (FP) PO PRN ×2 (13:23)
[2019-10-12] MEDS ORDERED: MAGNESIUM CITRATE 300 ML BOTTLE PO PRN (13:23)
[2019-10-12 14:30] VITALS: BMI 19.5
[2019-10-12] MEDS: hydrOXYzine PAMOATE 25 MG CAPSULE (FP) PO SCH ×3 (15:38→22:57)
[2019-10-12] MEDS ORDERED: MASKS NR ONE (17:17)
[2019-10-12] MEDS: chlordiazePOXIDE HCL 25 MG CAPSULE PO SCH ×2 (18:42→22:57)
[2019-10-12] MEDS: THIAMINE HCL 100 MG TABLET (FP) PO SCH (22:57)
[2019-10-12] MEDS: MELATONIN 5 MG TABLETS PO SCH (22:58)
[2019-10-13] MEDS: chlordiazePOXIDE HCL 25 MG CAPSULE PO SCH (06:30)
[2019-10-13] MEDS: hydrOXYzine PAMOATE 25 MG CAPSULE (FP) PO SCH ×5 (06:30→22:27)
--- NOTE | 2019-10-13 09:52 | PN ---
S CIWA - CIWA Score Nausea/Vomitin-Mild Nausea/No Vomiting Muscle Tremors: 3 Anxiety: 3 Agitation: 1-Slight > Activity Paroxysmal Sweats: 2 Orientation: 0-Oriented Tacttile Disturbances: 0-None Auditory Disturbances: 0-None Visual Disturbances: 1-Very Mild Sensitivity Headache: 0-None Present CIWA-Ar Total Score: 11 S Progress Note (SOAP) Subjective: 54 years old female admitted on 10/12/19 for alcohol withdrawal sx management treating with librium detox regiment loose stool x 1 rejects imodium "drinking water" continue ensure supplement Objective: 10/13/19 09:52 Vital Signs - 24 hr 10/12/19 10/12/19 10/12/19 14:24 15:31 17:02 Temperature 97.8 F 98.6 F 97.5 F L Pulse Rate 71 58 L 66 Respiratory 18 18 17 Rate Blood Pressure 119/78 111/76 91/55 L O2 Sat by Pulse 100 Oximetry (%) 10/12/19 10/13/19 10/13/19 20:36 07:29 08:42 Temperature 97.1 F L 97.8 F 97.1 F L Pulse Rate 66 60 72 Respiratory 17 16 18 Rate Blood Pressure 102/69 95/63 103/74 O2 Sat by Pulse 97 98 Oximetry (%) 10/13/19 09:53 lab pending Assessment: 10/13/19 09:53 alcohol withdrawal 10/13/19 09:54 bipolar Plan: librium regiment psychiatric referral
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
[2019-10-13 10:47] LABS: ALBUMIN 3.2 g/dl (3.4-5.0); BLOOD UREA NITROGEN 12.5 mg/dL (7-18); CALCIUM 8.8 mg/dL (8.5-10.1); CREATININE 0.7 mg/dL (0.55-1.3); POTASSIUM 4.3 mmol/L (3.5-5.1); TOT PROT 6.4 g/dl (6.4-8.2)
[2019-10-13 10:52] LABS: BILIRUBIN,TOTAL 0.7 mg/dL (0.2-1)
[2019-10-13 10:56] LABS: HEMATOCRIT 38.1 % (32.4-45.2); HEMOGLOBIN 12.6 GM/dL (10.7-15.3); MCH 29.3 pg (25.7-33.7); MEAN CELL VOLUME 88.9 fl (80-96); MEAN PLT VOLUME 7.1 fl (7.5-11.1); PLATELET COUNT 410 K/MM3 (134-434); RBC 4.29 M/mm3 (3.60-5.2); WHITE BLOOD COUNT 7.8 K/mm3 (4.0-10.0)
[2019-10-13] MEDS: chlordiazePOXIDE HCL 10 MG CAPSULE PO SCH ×3 (11:08→22:28)
[2019-10-13] MEDS: NICOTINE 7 MG/24 HOURS TOPICAL PATCH TD SCH (11:08)
[2019-10-13] MEDS: risperiDONE 2 MG TABLET PO SCH ×2 (11:10→22:27)
[2019-10-13] MEDS: PRENATAL VITAMINS W/ FOLIC ACID TABLET (FP) PO SCH (11:10)
[2019-10-13] MEDS: IBUPROFEN 400 MG TABLET (FP) PO PRN (11:11)
[2019-10-13] MEDS: CITALOPRAM HYDROBROMIDE 10 MG TABLET PO SCH (13:24)
[2019-10-13] MEDS: LURASIDONE HCL 40 MG TABLET PO SCH (22:27)
[2019-10-13] MEDS: THIAMINE HCL 100 MG TABLET (FP) PO SCH (22:27)
[2019-10-13] MEDS: traZODone HCL 50 MG TABLET (FP) PO SCH (22:49)
[2019-10-13] MEDS: MELATONIN 5 MG TABLETS PO SCH (23:02)
[2019-10-14] MEDS: hydrOXYzine PAMOATE 25 MG CAPSULE (FP) PO SCH ×5 (06:22→22:34)
[2019-10-14] MEDS: chlordiazePOXIDE HCL 25 MG CAPSULE PO SCH ×4 (06:23→22:36)
--- NOTE | 2019-10-14 09:51 | PN ---
S CIWA - CIWA Score Nausea/Vomitin-Mild Nausea/No Vomiting Muscle Tremors: 1-None Visible, but [place] Anxiety: 2 Agitation: 4-Moderately Restless Paroxysmal Sweats: No Perspiration Orientation: 0-Oriented Tacttile Disturbances: 0-None Auditory Disturbances: 0-None Visual Disturbances: 1-Very Mild Sensitivity Headache: 0-None Present CIWA-Ar Total Score: 9 BHS Progress Note (SOAP) Subjective: 54 years old female admitted on 10/12/19 for alcohol withdrawal sx management treating with librium detox regiment ate 70% breakfast continue ensure supplement Objective: 10/14/19 09:50 Vital Signs - 24 hr 10/13/19 10/13/19 10/13/19 12:26 16:51 20:32 Temperature 98.6 F 97.1 F L 97.1 F L Pulse Rate 82 72 68 Respiratory 18 17 17 Rate Blood Pressure 90/66 90/63 92/59 L O2 Sat by Pulse 97 97 Oximetry (%) 10/14/19 06:58 Temperature 97.1 F L Pulse Rate 64 Respiratory 16 Rate Blood Pressure 96/63 O2 Sat by Pulse 96 Oximetry (%) Laboratory Tests 10/12/19 10/12/19 10/13/19 10:30 14:55 08:00 WBC RBC Hgb Hct MCV MCH MCHC RDW Plt Count MPV Sodium Potassium Chloride Carbon Dioxide Anion Gap BUN Creatinine Est GFR (CKD-EPI)AfAm Est GFR (CKD-EPI)NonAf Random Glucose Calcium Total Bilirubin AST ALT Alkaline Phosphatase Total Protein Albumin POC Urine HCG, Qual Negative Syphilis Serology Reactive A* RPR Titer COVID-19 (WILD) Not detected HIV Ag/Ab Combo Qual 10/13/19 10/13/19 10/13/19 08:00 08:00 08:00 WBC 7.8 RBC 4.29 Hgb 12.6 Hct 38.1 MCV 88.9 MCH 29.3 MCHC 33.0 RDW 14.0 Plt Count 410 MPV 7.1 L Sodium 143 Potassium 4.3 Chloride 109 H Carbon Dioxide 27 Anion Gap 7 L BUN 12.5 Creatinine 0.7 Est GFR (CKD-EPI)AfAm 114.65 Est GFR (CKD-EPI)NonAf 98.92 Random Glucose 91 Calcium 8.8 Total Bilirubin 0.7 AST 20 ALT 14 Alkaline Phosphatase 62 Total Protein 6.4 Albumin 3.2 L POC Urine HCG, Qual Syphilis Serology RPR Titer COVID-19 (WILD) HIV Ag/Ab Combo Qual Negative 10/13/19 08:00 WBC RBC Hgb Hct MCV MCH MCHC RDW Plt Count MPV Sodium Potassium Chloride Carbon Dioxide Anion Gap BUN Creatinine Est GFR (CKD-EPI)AfAm Est GFR (CKD-EPI)NonAf Random Glucose Calcium Total Bilirubin AST ALT Alkaline Phosphatase Total Protein Albumin POC Urine HCG, Qual Syphilis Serology RPR Titer Reactive 1:1 H D COVID-19 (WILD) HIV Ag/Ab Combo Qual 10/14/19 09:55 syphilis contacted penicillin IM x 1 treated encourage ms corbin to have penicillin IM once a week x 3 if no history of syphilis treatment ms corbin states that she had reactive syphilis "last admission" but rpr was negative inform ms corbin 1:1 ratio of rpr current result ms corbin agrees to have penicillin IM today Assessment: 10/14/19 09:58 alcohol withdrawal syphilis serology reactive with rpr 1:1 Plan: librium regiment penicillin Im x 1
[2019-10-14] MEDS: risperiDONE 2 MG TABLET PO SCH ×2 (10:13→22:35)
[2019-10-14] MEDS: NICOTINE 7 MG/24 HOURS TOPICAL PATCH TD SCH (10:13)
[2019-10-14] MEDS: CITALOPRAM HYDROBROMIDE 10 MG TABLET PO SCH (10:13)
[2019-10-14] MEDS: PRENATAL VITAMINS W/ FOLIC ACID TABLET (FP) PO SCH (10:13)
[2019-10-14] MEDS ORDERED: PENICILLIN G BENZATHINE 2,400,000 UNIT/4 ML PFS IM ONE (10:30)
[2019-10-14 19:15] LABS: PH,URINE 6.5 (5.0-8.0); URINE APPEARANCE Clear; URINE BILIRUBIN Negative (NEGATIVE); URINE COLOR Yellow; URINE GLUCOSE (UA) Negative (NEGATIVE); URINE KETONE Negative (NEGATIVE); URINE LEUK ESTERASE Negative (NEGATIVE); URINE NITRITE Negative (NEGATIVE); URINE PROTEIN Negative (NEGATIVE); URINE UROBILINOGEN 0.2 mg/dL (0.2-1.0)
[2019-10-14] MEDS: traZODone HCL 50 MG TABLET (FP) PO SCH (22:34)
[2019-10-14] MEDS: LURASIDONE HCL 40 MG TABLET PO SCH (22:34)
[2019-10-14] MEDS: MELATONIN 5 MG TABLETS PO SCH (22:35)
[2019-10-14] MEDS: THIAMINE HCL 100 MG TABLET (FP) PO SCH (22:35)
[2019-10-14] MEDS: METHOCARBAMOL 500 MG TABLET PO PRN (22:37)
[2019-10-15] MEDS ORDERED: chlordiazePOXIDE HCL 10 MG CAPSULE PO PRN
[2019-10-15] MEDS: hydrOXYzine PAMOATE 25 MG CAPSULE (FP) PO SCH ×5 (05:56→22:20)
[2019-10-15] MEDS: chlordiazePOXIDE HCL 10 MG CAPSULE PO SCH ×4 (05:57→22:20)
--- NOTE | 2019-10-15 09:42 | PN ---
S CIWA - CIWA Score Nausea/Vomitin-No Nausea/No Vomiting Muscle Tremors: 1-None Visible, but [place] Anxiety: 2 Agitation: 0-Normal Activity Paroxysmal Sweats: No Perspiration Orientation: 0-Oriented Tacttile Disturbances: 0-None Auditory Disturbances: 0-None Visual Disturbances: 2-Mild Sensitivity Headache: 1-Very Mild CIWA-Ar Total Score: 6 BHS Progress Note (SOAP) Subjective: 54 years old female was admitted on 10/12/19 for alcohol withdrawal sx management treating with librium detox regiment received penicillin IM x 1 on 10/14/19 for rpr 1:1 ms corbin tolerates penicillin well Objective: 10/15/19 09:45 Vital Signs - 24 hr 10/14/19 10/14/19 10/14/19 13:04 16:49 20:56 Temperature 98.6 F 98.4 F 98.4 F Pulse Rate 93 H 92 H 108 H Respiratory 18 16 16 Rate Blood Pressure 84/56 L 95/65 108/68 O2 Sat by Pulse 95 95 Oximetry (%) 10/15/19 06:29 Temperature 97.3 F L Pulse Rate 68 Respiratory 16 Rate Blood Pressure 99/57 L O2 Sat by Pulse 97 Oximetry (%) Laboratory Tests 10/12/19 10/12/19 10/13/19 10:30 14:55 08:00 WBC RBC Hgb Hct MCV MCH MCHC RDW Plt Count MPV Sodium Potassium Chloride Carbon Dioxide Anion Gap BUN Creatinine Est GFR (CKD-EPI)AfAm Est GFR (CKD-EPI)NonAf Random Glucose Calcium Total Bilirubin AST ALT Alkaline Phosphatase Total Protein Albumin Urine Color Urine Appearance Urine pH Ur Specific [place] Urine Protein Urine Glucose (UA) Urine Ketones Urine Blood Urine Nitrite Urine Bilirubin Urine Urobilinogen Ur Leukocyte Esterase POC Urine HCG, Qual Negative Syphilis Serology Reactive A* RPR Titer COVID-19 (WILD) Not detected HIV Ag/Ab Combo Qual 10/13/19 10/13/19 10/13/19 08:00 08:00 08:00 WBC 7.8 RBC 4.29 Hgb 12.6 Hct 38.1 MCV 88.9 MCH 29.3 MCHC 33.0 RDW 14.0 Plt Count 410 MPV 7.1 L Sodium 143 Potassium 4.3 Chloride 109 H Carbon Dioxide 27 Anion Gap 7 L BUN 12.5 Creatinine 0.7 Est GFR (CKD-EPI)AfAm 114.65 Est GFR (CKD-EPI)NonAf 98.92 Random Glucose 91 Calcium 8.8 Total Bilirubin 0.7 AST 20 ALT 14 Alkaline Phosphatase 62 Total Protein 6.4 Albumin 3.2 L Urine Color Urine Appearance Urine pH Ur Specific [place] Urine Protein Urine Glucose (UA) Urine Ketones Urine Blood Urine Nitrite Urine Bilirubin Urine Urobilinogen Ur Leukocyte Esterase POC Urine HCG, Qual Syphilis Serology RPR Titer COVID-19 (WILD) HIV Ag/Ab Combo Qual Negative 10/13/19 10/14/19 08:00 16:42 WBC RBC Hgb Hct MCV MCH MCHC RDW Plt Count MPV Sodium Potassium Chloride Carbon Dioxide Anion Gap BUN Creatinine Est GFR (CKD-EPI)AfAm Est GFR (CKD-EPI)NonAf Random Glucose Calcium Total Bilirubin AST ALT Alkaline Phosphatase Total Protein Albumin Urine Color Yellow Urine Appearance Clear Urine pH 6.5 Ur Specific [place] 1.025 Urine Protein Negative Urine Glucose (UA) Negative Urine Ketones Negative Urine Blood Negative Urine Nitrite Negative Urine Bilirubin Negative Urine Urobilinogen 0.2 Ur Leukocyte Esterase Negative POC Urine HCG, Qual Syphilis Serology RPR Titer Reactive 1:1 H D COVID-19 (WILD) HIV Ag/Ab Combo Qual tolerated penicillin well Assessment: 10/15/19 09:46 alcohol withdrawal syphilis rpr 1:1 Plan: librium regiment penicilloin IM x 1 on 10/14/19
[2019-10-15] MEDS: risperiDONE 2 MG TABLET PO SCH ×2 (10:12→22:19)
[2019-10-15] MEDS: METHOCARBAMOL 500 MG TABLET PO PRN ×2 (10:12→22:20)
[2019-10-15] MEDS: NICOTINE 7 MG/24 HOURS TOPICAL PATCH TD SCH (10:12)
[2019-10-15] MEDS: PRENATAL VITAMINS W/ FOLIC ACID TABLET (FP) PO SCH (10:12)
[2019-10-15] MEDS: CITALOPRAM HYDROBROMIDE 10 MG TABLET PO SCH (10:13)
[2019-10-15] MEDS: IBUPROFEN 400 MG TABLET (FP) PO PRN ×2 (13:04→22:20)
[2019-10-15] MEDS: THIAMINE HCL 100 MG TABLET (FP) PO SCH (22:20)
[2019-10-15] MEDS: traZODone HCL 50 MG TABLET (FP) PO SCH (22:20)
[2019-10-15] MEDS: MELATONIN 5 MG TABLETS PO SCH (22:20)
[2019-10-15] MEDS: LURASIDONE HCL 40 MG TABLET PO SCH (22:47)
[2019-10-16] MEDS: chlordiazePOXIDE HCL 10 MG CAPSULE PO SCH ×2 (06:48→18:57)
[2019-10-16] MEDS: hydrOXYzine PAMOATE 25 MG CAPSULE (FP) PO SCH ×5 (06:49→22:29)
[2019-10-16] MEDS: PRENATAL VITAMINS W/ FOLIC ACID TABLET (FP) PO SCH (09:48)
[2019-10-16] MEDS: risperiDONE 2 MG TABLET PO SCH ×2 (09:48→22:29)
[2019-10-16] MEDS: CITALOPRAM HYDROBROMIDE 10 MG TABLET PO SCH (09:48)
[2019-10-16] MEDS: NICOTINE 7 MG/24 HOURS TOPICAL PATCH TD SCH (09:49)
--- NOTE | 2019-10-16 10:37 | PN ---
S CIWA - CIWA Score Nausea/Vomitin-No Nausea/No Vomiting Muscle Tremors: 1-None Visible, but [place] Anxiety: 0-No Anxiety, at Ease Agitation: 0-Normal Activity Paroxysmal Sweats: No Perspiration Orientation: 0-Oriented Tacttile Disturbances: 0-None Auditory Disturbances: 0-None Visual Disturbances: 2-Mild Sensitivity Headache: 0-None Present CIWA-Ar Total Score: 3 BHS Progress Note (SOAP) Subjective: 54 years old female was admitted on 10/12/19 for alcohol withdrawal sx [id number] treating with librium detox regiment feeling better today less tremor mild restlessness informed ms corbin that next penicillin IM will by Sep and last penicillin IM will be Sep Objective: 10/16/19 10:35 Vital Signs - 24 hr 10/15/19 10/15/19 10/15/19 13:10 16:31 20:42 Temperature 96.9 F L 97.1 F L 97.1 F L Pulse Rate 71 79 77 Respiratory 20 18 18 Rate Blood Pressure 95/67 90/65 103/72 O2 Sat by Pulse 97 97 94 L Oximetry (%) 10/16/19 10/16/19 06:08 08:41 Temperature 98.6 F 98.2 F Pulse Rate 68 82 Respiratory 16 18 Rate Blood Pressure 93/67 98/61 O2 Sat by Pulse 95 Oximetry (%) Laboratory Tests 10/12/19 10/12/19 10/13/19 10:30 14:55 08:00 WBC RBC Hgb Hct MCV MCH MCHC RDW Plt Count MPV Sodium Potassium Chloride Carbon Dioxide Anion Gap BUN Creatinine Est GFR (CKD-EPI)AfAm Est GFR (CKD-EPI)NonAf Random Glucose Calcium Total Bilirubin AST ALT Alkaline Phosphatase Total Protein Albumin Urine Color Urine Appearance Urine pH Ur Specific [place] Urine Protein Urine Glucose (UA) Urine Ketones Urine Blood Urine Nitrite Urine Bilirubin Urine Urobilinogen Ur Leukocyte Esterase POC Urine HCG, Qual Negative Syphilis Serology Reactive A* RPR Titer COVID-19 (WILD) Not detected HIV Ag/Ab Combo Qual 10/13/19 10/13/19 10/13/19 08:00 08:00 08:00 WBC 7.8 RBC 4.29 Hgb 12.6 Hct 38.1 MCV 88.9 MCH 29.3 MCHC 33.0 RDW 14.0 Plt Count 410 MPV 7.1 L Sodium 143 Potassium 4.3 Chloride 109 H Carbon Dioxide 27 Anion Gap 7 L BUN 12.5 Creatinine 0.7 Est GFR (CKD-EPI)AfAm 114.65 Est GFR (CKD-EPI)NonAf 98.92 Random Glucose 91 Calcium 8.8 Total Bilirubin 0.7 AST 20 ALT 14 Alkaline Phosphatase 62 Total Protein 6.4 Albumin 3.2 L Urine Color Urine Appearance Urine pH Ur Specific [place] Urine Protein Urine Glucose (UA) Urine Ketones Urine Blood Urine Nitrite Urine Bilirubin Urine Urobilinogen Ur Leukocyte Esterase POC Urine HCG, Qual Syphilis Serology RPR Titer COVID-19 (WILD) HIV Ag/Ab Combo Qual Negative 10/13/19 10/14/19 08:00 16:42 WBC RBC Hgb Hct MCV MCH MCHC RDW Plt Count MPV Sodium Potassium Chloride Carbon Dioxide Anion Gap BUN Creatinine Est GFR (CKD-EPI)AfAm Est GFR (CKD-EPI)NonAf Random Glucose Calcium Total Bilirubin AST ALT Alkaline Phosphatase Total Protein Albumin Urine Color Yellow Urine Appearance Clear Urine pH 6.5 Ur Specific [place] 1.025 Urine Protein Negative Urine Glucose (UA) Negative Urine Ketones Negative Urine Blood Negative Urine Nitrite Negative Urine Bilirubin Negative Urine Urobilinogen 0.2 Ur Leukocyte Esterase Negative POC Urine HCG, Qual Syphilis Serology RPR Titer Reactive 1:1 H D COVID-19 (WILD) HIV Ag/Ab Combo Qual lab noted encourage ms corbin to have total of three penicillin IM as per syphilis serology reactive Assessment: 10/16/19 10:36 alcohol withdrawal Plan: librium regiment
[2019-10-16] MEDS: IBUPROFEN 400 MG TABLET (FP) PO PRN ×2 (14:10→22:32)
[2019-10-16] MEDS: THIAMINE HCL 100 MG TABLET (FP) PO SCH (22:29)
[2019-10-16] MEDS: MELATONIN 5 MG TABLETS PO SCH (22:29)
[2019-10-16] MEDS: traZODone HCL 50 MG TABLET (FP) PO SCH (22:29)
[2019-10-16] MEDS: LURASIDONE HCL 40 MG TABLET PO SCH (22:30)
[2019-10-17] MEDS ORDERED: chlordiazePOXIDE HCL 10 MG CAPSULE PO ONE (05:00)
[2019-10-17] MEDS: hydrOXYzine PAMOATE 25 MG CAPSULE (FP) PO SCH ×2 (06:32→09:54)
[2019-10-17 09:09] VITALS: BP 92/60; PULSE 79; TEMP 98.6
--- NOTE | 2019-10-17 09:28 | DS ---
[facility] Detox Discharge Summary Admission Date: 10/12/19 Discharge Date: 10/17/19 - History Present History: Alcohol Dependence Additional Comments: 54 years old female was admitted on 10/12/19 for alcohol withdrawal sx management treated with librium detox regiment seen by psychiatrist coleman starks latuda trazodine ms corbin has completed librium regiment and is tolerated well General Appearance: Yes: no Distress, mild Tremorous, less Irritable, no Sweating, mild Anxious HEENTM: Yes: Normal ENT Inspection, MAK, Pharynx Normal Respiratory: Yes: Lungs Clear, Normal Breath Sounds, No Respiratory Distress Neck: Yes: Within Normal Limits, Supple, Trachea in good position Breast: Yes: Breast Exam Deferred Cardiology: Yes: Regular Rhythm, Regular Rate, S1, S2 Abdominal: Yes: Within Normal Limits, Non Tender, Flat, Soft, no Organomegaly Genitourinary: Yes: Within Normal Limits Back: Yes: mild Muscle Spasm Musculoskeletal: Yes: chronic Back pain, no Muscle Pain Extremities: Yes: mild Tremors 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, Alert, Motor Strength 5/5 Integumentary: Yes: Dry Lymphatic: Yes: Within Normal Limits Pertinent Past History: time for discharge 34 minutes transportation at 11 am from detox to [facility] - Physical Exam Results Vital Signs: Vital Signs Temperature 98.6 F 10/17/19 08:46 Pulse Rate 79 10/17/19 08:46 Respiratory Rate 18 10/17/19 08:46 Blood Pressure 92/60 10/17/19 08:46 O2 Sat by Pulse Oximetry (%) 100 10/17/19 06:51 Pertinent Admission Physical Exam Findings: alcohol withdrawal Vital Signs - 24 hr 10/16/19 10/16/19 10/16/19 12:25 16:51 20:49 Temperature 99 F 97.5 F L 97.5 F L Pulse Rate 94 H 103 H 93 H Respiratory 18 19 18 Rate Blood Pressure 103/74 118/73 97/65 O2 Sat by Pulse 97 97 Oximetry (%) 10/17/19 10/17/19 06:51 08:46 Temperature 97.7 F 98.6 F Pulse Rate 96 H 79 Respiratory 18 18 Rate Blood Pressure 96/59 L 92/60 O2 Sat by Pulse 100 Oximetry (%) Laboratory Tests 10/12/19 10/12/19 10/13/19 10:30 14:55 08:00 WBC RBC Hgb Hct MCV MCH MCHC RDW Plt Count MPV Sodium Potassium Chloride Carbon Dioxide Anion Gap BUN Creatinine Est GFR (CKD-EPI)AfAm Est GFR (CKD-EPI)NonAf Random Glucose Calcium Total Bilirubin AST ALT Alkaline Phosphatase Total Protein Albumin Urine Color Urine Appearance Urine pH Ur Specific [place] Urine Protein Urine Glucose (UA) Urine Ketones Urine Blood Urine Nitrite Urine Bilirubin Urine Urobilinogen Ur Leukocyte Esterase POC Urine HCG, Qual Negative Syphilis Serology Reactive A* RPR Titer COVID-19 (WILD) Not detected HIV Ag/Ab Combo Qual 10/13/19 10/13/19 10/13/19 08:00 08:00 08:00 WBC 7.8 RBC 4.29 Hgb 12.6 Hct 38.1 MCV 88.9 MCH 29.3 MCHC 33.0 RDW 14.0 Plt Count 410 MPV 7.1 L Sodium 143 Potassium 4.3 Chloride 109 H Carbon Dioxide 27 Anion Gap 7 L BUN 12.5 Creatinine 0.7 Est GFR (CKD-EPI)AfAm 114.65 Est GFR (CKD-EPI)NonAf 98.92 Random Glucose 91 Calcium 8.8 Total Bilirubin 0.7 AST 20 ALT 14 Alkaline Phosphatase 62 Total Protein 6.4 Albumin 3.2 L Urine Color Urine Appearance Urine pH Ur Specific [place] Urine Protein Urine Glucose (UA) Urine Ketones Urine Blood Urine Nitrite Urine Bilirubin Urine Urobilinogen Ur Leukocyte Esterase POC Urine HCG, Qual Syphilis Serology RPR Titer COVID-19 (WILD) HIV Ag/Ab Combo Qual Negative 10/13/19 10/14/19 08:00 16:42 WBC RBC Hgb Hct MCV MCH MCHC RDW Plt Count MPV Sodium Potassium Chloride Carbon Dioxide Anion Gap BUN Creatinine Est GFR (CKD-EPI)AfAm Est GFR (CKD-EPI)NonAf Random Glucose Calcium Total Bilirubin AST ALT Alkaline Phosphatase Total Protein Albumin Urine Color Yellow Urine Appearance Clear Urine pH 6.5 Ur Specific [place] 1.025 Urine Protein Negative Urine Glucose (UA) Negative Urine Ketones Negative Urine Blood Negative Urine Nitrite Negative Urine Bilirubin Negative Urine Urobilinogen 0.2 Ur Leukocyte Esterase Negative POC Urine HCG, Qual Syphilis Serology RPR Titer Reactive 1:1 H D COVID-19 (WILD) HIV Ag/Ab Combo Qual discussing nutrition and oral hydration encourage to have penicilline IM on 10/21/19 and 10/28/19 with total of three penicillin IM for syphilis treatment - Treatment Hospital Course: Detox Protocol Followed, Detoxed Safely, Responded well, Discharged Condition Good, Rehab Referral Accepted Patient has Accepted a Rehab Referral to: [facility] - Medication Discharge Medications: Ambulatory Orders Citalopram Hydrobromide [Celexa -] 10 mg PO DAILY #30 tablet 01/01/19 Lurasidone HCl [Latuda -] 40 mg PO BID 03/12/19 Risperidone [Risperdal -] 3 mg PO BID 04/30/19 traZODone HCL [Trazodone HCl] 50 mg PO HS 04/30/19 Pantoprazole Sodium [Protonix -] 20 mg PO DAILY 07/08/19 Albuterol Sulfate Inhaler - [Ventolin HFA Inhaler -] 2 puff PO Q4H PRN 10/12/19 - Diagnosis (1) Alcohol dependence with uncomplicated withdrawal Status: Acute (2) Syphilis contact, treated Status: Chronic (3) Weight loss Status: Chronic (4) Bipolar 1 disorder Status: Suspected (5) COPD (chronic obstructive pulmonary disease) Status: Chronic Qualifiers: COPD type: emphysema Emphysema type: unilateral Qualified Code(s): J43.0 - Unilateral pulmonary emphysema [MacLeod's syndrome] (6) GERD (gastroesophageal reflux disease) Status: Chronic Qualifiers: Esophagitis presence: without esophagitis Qualified Code(s): K21.9 - Gastro-esophageal reflux disease without esophagitis (7) History of positive PPD Status: Resolved (8) Nicotine dependence Status: Acute Qualifiers: Nicotine product type: cigarettes Substance use status: in withdrawal Qualified Code(s): F17.213 - Nicotine dependence, cigarettes, with withdrawal (9) PPD positive Status: Resolved - AMA Did Patient Leave Against Medical Advice: No CIWA Score - CIWA Score Nausea/Vomitin-No Nausea/No Vomiting Muscle Tremors: 1-None Visible, but [place] Anxiety: 0-No Anxiety, at Ease Agitation: 0-Normal Activity Paroxysmal Sweats: No Perspiration Orientation: 0-Oriented Tacttile Disturbances: 0-None Auditory Disturbances: 0-None Visual Disturbances: 0-None Headache: 0-None Present CIWA-Ar Total Score: 1
[2019-10-17] MEDS: PRENATAL VITAMINS W/ FOLIC ACID TABLET (FP) PO SCH (09:54)
[2019-10-17] MEDS: risperiDONE 2 MG TABLET PO SCH (09:54)
[2019-10-17] MEDS: NICOTINE 7 MG/24 HOURS TOPICAL PATCH TD SCH (09:54)
[2019-10-17] MEDS: CITALOPRAM HYDROBROMIDE 10 MG TABLET PO SCH (09:54)
== END 2019-10-17 10:16 | disposition home or self-care (01) | DRG 774 ==
LOC: YASAS 10:25 → Y3N 14:59
PROVIDERS: ADMIT Allergy & Immunology; ATTEND Allergy & Immunology
PROC: HZ2ZZZZ Detoxification Services for Substance Abuse Treatment (ICD-10-PCS; principal; 2019-10-12)
DX: F10.230 Alcohol dependence with withdrawal, uncomplicated (principal); F14.20 Cocaine dependence, uncomplicated; F16.20 Hallucinogen dependence, uncomplicated; F17.213 Nicotine dependence, cigarettes, with withdrawal; F19.282 Other psychoactive substance dependence with psychoactive substance-induced sleep disorder; F19.24 Other psychoactive substance dependence with psychoactive substance-induced mood disorder; F31.9 Bipolar disorder, unspecified; F43.10 Post-traumatic stress disorder, unspecified; F41.9 Anxiety disorder, unspecified; D57.3 Sickle-cell trait; J43.0 Unilateral pulmonary emphysema [MacLeod's syndrome]; K21.9 Gastro-esophageal reflux disease without esophagitis; R63.4 Abnormal weight loss; Z68.1 Body mass index [BMI] 19.9 or less, adult; R76.11 Nonspecific reaction to tuberculin skin test without active tuberculosis; Z62.810 Personal history of physical and sexual abuse in childhood; Z20.2 Contact with and (suspected) exposure to infections with a predominantly sexual mode of transmission; Z91.5 Personal history of self-harm; Z86.73 Personal history of transient ischemic attack (TIA), and cerebral infarction without residual deficits; Z86.69 Personal history of other diseases of the nervous system and sense organs; Z88.8 Allergy status to other drugs, medicaments and biological substances; Z91.010 Allergy to peanuts; Z91.018 Allergy to other foods; Z56.0 Unemployment, unspecified; Z59.0 Homelessness
CPT/HCPCS: 36415; 80053; 81003; 81025; 85027; 86593; 86780; 87389; Q0162; U0003

== ENCOUNTER 2020-01-22 07:16 | Inpatient (IN) | payer OTHER ==
[2020-01-22 07:53] VITALS: BMI 22.4
[2020-01-22] MEDS ORDERED: chlordiazePOXIDE HCL 25 MG CAPSULE PO PRN (08:53)
[2020-01-22] MEDS ORDERED: MENTHOL/PHENOL 1 EACH UD MM PRN (08:53)
[2020-01-22] MEDS ORDERED: ONDANSETRON *ODT* 4 MG TABLET SL PRN (08:53)
[2020-01-22] MEDS ORDERED: ALBUTEROL SO4 HFA INHALER IH PRN (08:53)
[2020-01-22] MEDS ORDERED: ACETAMINOPHEN 325 MG TABLET (FP) PO PRN ×2 (08:53)
[2020-01-22] MEDS ORDERED: MAG HYDROX/AL HYDROX/SIMETH 30 ML UNIT-DOSE CUP PO PRN (08:53)
[2020-01-22] MEDS ORDERED: NICOTINE POLACRILEX 2 MG GUM BUC PRN (08:53)
[2020-01-22] MEDS ORDERED: MAGNESIUM CITRATE 300 ML BOTTLE PO PRN (08:53)
[2020-01-22] MEDS ORDERED: BISMUTH SUBSALICYLATE 524 MG/30 ML UD PO PRN (08:53)
[2020-01-22] MEDS ORDERED: MAGNESIUM HYDROX 2400MG/30ML ORAL SUSPENSION 30 ML CUP PO PRN (08:53)
[2020-01-22] MEDS: metroNIDAZOLE 250 MG TABLET PO SCH ×2 (10:33→22:15)
[2020-01-22] MEDS: PANTOPRAZOLE 20 MG TABLET PO SCH (10:34)
[2020-01-22] MEDS: hydrOXYzine PAMOATE 25 MG CAPSULE (FP) PO SCH ×4 (10:34→22:18)
[2020-01-22] MEDS: IBUPROFEN 400 MG TABLET (FP) PO PRN ×2 (10:34→22:17)
[2020-01-22] MEDS: NICOTINE 14 MG/24 HOURS TOPICAL PATCH TD SCH (10:34)
[2020-01-22] MEDS: METHOCARBAMOL 500 MG TABLET PO PRN (10:34)
[2020-01-22] MEDS: chlordiazePOXIDE HCL 25 MG CAPSULE PO SCH ×3 (10:34→23:10)
[2020-01-22] MEDS: PRENATAL VITAMINS W/ FOLIC ACID TABLET (FP) PO SCH (10:34)
[2020-01-22] MEDS ORDERED: CITALOPRAM HYDROBROMIDE 10 MG TABLET PO SCH (11:30)
[2020-01-22] MEDS ORDERED: risperiDONE 2 MG TABLET PO SCH (11:30)
[2020-01-22] MEDS ORDERED: LURASIDONE HCL 40 MG TABLET PO SCH (11:30)
[2020-01-22 14:56] LABS: HEMATOCRIT 39.6 % (32.4-45.2); HEMOGLOBIN 12.5 GM/dL (10.7-15.3); MCH 27.5 pg (25.7-33.7); MCHC 31.4 g/dl (32.0-36.0); MEAN CELL VOLUME 87.4 fl (80-96); MEAN PLT VOLUME 7.4 fl (7.5-11.1); PLATELET COUNT 453 K/MM3 (134-434); RBC 4.53 M/mm3 (3.60-5.2); RDW 13.5 % (11.6-15.6)
[2020-01-22 15:08] LABS: POTASSIUM 3.6 mmol/L (3.5-5.1)
[2020-01-22 15:15] LABS: ALBUMIN 4.3 g/dl (3.4-5.0); BLOOD UREA NITROGEN 12.2 mg/dL (7-18); CALCIUM 9.7 mg/dL (8.5-10.1)
[2020-01-22 15:20] LABS: BILIRUBIN,TOTAL 1.2 mg/dL (0.2-1); CREATININE 0.7 mg/dL (0.55-1.3)
[2020-01-22] MEDS ORDERED: metroNIDAZOLE 0.75% VAGINAL GEL 70 GM TUBE VG SCH (22:00)
[2020-01-22] MEDS: traZODone HCL 50 MG TABLET (FP) PO SCH (22:15)
[2020-01-22] MEDS: LURASIDONE HCL 40 MG TABLET PO SCH (22:15)
[2020-01-22] MEDS: risperiDONE 2 MG TABLET PO SCH (22:15)
[2020-01-22] MEDS: THIAMINE HCL 100 MG TABLET (FP) PO SCH (22:15)
[2020-01-22] MEDS: MELATONIN 5 MG TABLETS PO SCH (22:18)
[2020-01-23] MEDS: chlordiazePOXIDE HCL 25 MG CAPSULE PO SCH (07:51)
[2020-01-23] MEDS: hydrOXYzine PAMOATE 25 MG CAPSULE (FP) PO SCH (07:51)
[2020-01-23] MEDS ORDERED: hydrOXYzine PAMOATE 25 MG CAPSULE (FP) PO PRN (08:43)
[2020-01-23] MEDS ORDERED: diazePAM 5 MG TABLET PO PRN (08:45)
[2020-01-23] MEDS: risperiDONE 2 MG TABLET PO SCH ×2 (10:14→22:33)
[2020-01-23] MEDS: metroNIDAZOLE 250 MG TABLET PO SCH ×2 (10:14→22:33)
[2020-01-23] MEDS: PANTOPRAZOLE 20 MG TABLET PO SCH (10:14)
[2020-01-23] MEDS: CITALOPRAM HYDROBROMIDE 10 MG TABLET PO SCH (10:14)
[2020-01-23] MEDS: NICOTINE 14 MG/24 HOURS TOPICAL PATCH TD SCH (10:15)
[2020-01-23] MEDS: diazePAM 5 MG TABLET PO SCH ×3 (10:15→22:33)
[2020-01-23] MEDS: LURASIDONE HCL 40 MG TABLET PO SCH ×2 (10:15→22:33)
[2020-01-23] MEDS: PRENATAL VITAMINS W/ FOLIC ACID TABLET (FP) PO SCH (10:15)
[2020-01-23] MEDS: traZODone HCL 50 MG TABLET (FP) PO SCH (22:33)
[2020-01-23] MEDS: THIAMINE HCL 100 MG TABLET (FP) PO SCH (22:33)
[2020-01-23] MEDS: METHOCARBAMOL 500 MG TABLET PO PRN (22:33)
[2020-01-23] MEDS: MELATONIN 5 MG TABLETS PO SCH (22:34)
[2020-01-24] MEDS ORDERED: chlordiazePOXIDE HCL 25 MG CAPSULE PO SCH (05:00)
[2020-01-24] MEDS: diazePAM 5 MG TABLET PO SCH ×4 (06:38→22:24)
[2020-01-24] MEDS: METHOCARBAMOL 500 MG TABLET PO PRN ×2 (06:40→22:25)
[2020-01-24] MEDS: IBUPROFEN 400 MG TABLET (FP) PO PRN ×2 (06:40→17:52)
[2020-01-24 10:17] LABS: POTASSIUM 4.3 mmol/L (3.5-5.1)
[2020-01-24 10:20] LABS: BASO % 0.4 % (0-2.0); EOS % 1.5 % (0-4.5); HEMATOCRIT 35.3 % (32.4-45.2); HEMOGLOBIN 11.4 GM/dL (10.7-15.3); LYMPH % 62.2 % (8-40); MCH 28.1 pg (25.7-33.7); MCHC 32.2 g/dl (32.0-36.0); MEAN CELL VOLUME 87.3 fl (80-96); MEAN PLT VOLUME 7.5 fl (7.5-11.1); MONO % 6.8 % (3.8-10.2); NEUT % 29.1 % (42.8-82.8); PLATELET COUNT 382 K/MM3 (134-434); RBC 4.05 M/mm3 (3.60-5.2); RDW 13.6 % (11.6-15.6); WHITE BLOOD COUNT 6.9 K/mm3 (4.0-10.0)
[2020-01-24 10:22] LABS: CALCIUM 8.5 mg/dL (8.5-10.1)
[2020-01-24 10:23] LABS: ALBUMIN 2.9 g/dl (3.4-5.0)
[2020-01-24 10:24] LABS: BLOOD UREA NITROGEN 19.8 mg/dL (7-18)
[2020-01-24 10:25] LABS: CREATININE 0.7 mg/dL (0.55-1.3)
[2020-01-24 10:27] LABS: BILIRUBIN,TOTAL 0.7 mg/dL (0.2-1); TOT PROT 6.3 g/dl (6.4-8.2)
[2020-01-24 11:03] LABS: ANISOCYTOSIS 1+; MACROCYTOSIS 0; PLATELET ESTIMATE NORMAL
[2020-01-24] MEDS: PANTOPRAZOLE 20 MG TABLET PO SCH (11:09)
[2020-01-24] MEDS: risperiDONE 2 MG TABLET PO SCH ×2 (11:09→22:24)
[2020-01-24] MEDS: PRENATAL VITAMINS W/ FOLIC ACID TABLET (FP) PO SCH (11:13)
[2020-01-24] MEDS: metroNIDAZOLE 250 MG TABLET PO SCH (11:38)
[2020-01-24] MEDS: CITALOPRAM HYDROBROMIDE 10 MG TABLET PO SCH (11:38)
[2020-01-24] MEDS: LURASIDONE HCL 40 MG TABLET PO SCH ×2 (11:40→22:24)
[2020-01-24] MEDS: NICOTINE 14 MG/24 HOURS TOPICAL PATCH TD SCH (11:43)
[2020-01-24] MEDS: THIAMINE HCL 100 MG TABLET (FP) PO SCH (22:24)
[2020-01-24] MEDS: MELATONIN 5 MG TABLETS PO SCH (22:24)
[2020-01-24] MEDS: traZODone HCL 50 MG TABLET (FP) PO SCH (22:24)
[2020-01-24] MEDS: metroNIDAZOLE 0.75% VAGINAL GEL 70 GM TUBE VG SCH (22:29)
[2020-01-25] MEDS ORDERED: chlordiazePOXIDE HCL 10 MG CAPSULE PO PRN
[2020-01-25] MEDS ORDERED: chlordiazePOXIDE HCL 10 MG CAPSULE PO SCH (05:00)
[2020-01-25] MEDS: diazePAM 5 MG TABLET PO SCH ×3 (06:20→22:38)
[2020-01-25] MEDS: IBUPROFEN 400 MG TABLET (FP) PO PRN ×2 (06:21→18:06)
[2020-01-25] MEDS: METHOCARBAMOL 500 MG TABLET PO PRN (06:21)
[2020-01-25] MEDS: CITALOPRAM HYDROBROMIDE 10 MG TABLET PO SCH (10:19)
[2020-01-25] MEDS: LURASIDONE HCL 40 MG TABLET PO SCH ×2 (10:19→22:38)
[2020-01-25] MEDS: PANTOPRAZOLE 20 MG TABLET PO SCH (10:20)
[2020-01-25] MEDS: risperiDONE 2 MG TABLET PO SCH ×2 (10:20→22:38)
[2020-01-25] MEDS: NICOTINE 14 MG/24 HOURS TOPICAL PATCH TD SCH (10:20)
[2020-01-25] MEDS: PRENATAL VITAMINS W/ FOLIC ACID TABLET (FP) PO SCH (10:20)
[2020-01-25] MEDS: THIAMINE HCL 100 MG TABLET (FP) PO SCH (22:38)
[2020-01-25] MEDS: metroNIDAZOLE 0.75% VAGINAL GEL 70 GM TUBE VG SCH (22:38)
[2020-01-25] MEDS: MELATONIN 5 MG TABLETS PO SCH (22:38)
[2020-01-25] MEDS: traZODone HCL 50 MG TABLET (FP) PO SCH (22:38)
[2020-01-26] MEDS ORDERED: chlordiazePOXIDE HCL 10 MG CAPSULE PO SCH (05:00)
[2020-01-26] MEDS ORDERED: diazePAM 5 MG TABLET PO SCH (06:00)
[2020-01-26] MEDS: IBUPROFEN 400 MG TABLET (FP) PO PRN (06:13)
[2020-01-26] MEDS: METHOCARBAMOL 500 MG TABLET PO PRN (06:13)
[2020-01-26] MEDS: NICOTINE 14 MG/24 HOURS TOPICAL PATCH TD SCH (10:38)
[2020-01-26] MEDS: LURASIDONE HCL 40 MG TABLET PO SCH (10:38)
[2020-01-26] MEDS: risperiDONE 2 MG TABLET PO SCH (10:38)
[2020-01-26] MEDS: PRENATAL VITAMINS W/ FOLIC ACID TABLET (FP) PO SCH (10:38)
[2020-01-26] MEDS: PANTOPRAZOLE 20 MG TABLET PO SCH (10:38)
[2020-01-26] MEDS: CITALOPRAM HYDROBROMIDE 10 MG TABLET PO SCH (10:38)
[2020-01-26 14:23] VITALS: BP 108/72; PULSE 68; TEMP 97.1
[2020-01-27] MEDS ORDERED: chlordiazePOXIDE HCL 10 MG CAPSULE PO ONE (05:00)
[2020-01-27] MEDS ORDERED: diazePAM 5 MG TABLET PO ONE (06:00)
== END 2020-01-26 14:37 | disposition home or self-care (01) | DRG 774 ==
LOC: YASAS 07:16 → Y6N 08:37
PROVIDERS: ADMIT Allergy & Immunology; ATTEND Allergy & Immunology
PROC: HZ2ZZZZ Detoxification Services for Substance Abuse Treatment (ICD-10-PCS; principal; 2020-01-22)
DX: F10.230 Alcohol dependence with withdrawal, uncomplicated (principal); F14.20 Cocaine dependence, uncomplicated; F12.20 Cannabis dependence, uncomplicated; F17.210 Nicotine dependence, cigarettes, uncomplicated; F19.282 Other psychoactive substance dependence with psychoactive substance-induced sleep disorder; F19.280 Other psychoactive substance dependence with psychoactive substance-induced anxiety disorder; F31.9 Bipolar disorder, unspecified; F43.10 Post-traumatic stress disorder, unspecified; D57.3 Sickle-cell trait; J43.0 Unilateral pulmonary emphysema [MacLeod's syndrome]; K21.9 Gastro-esophageal reflux disease without esophagitis; M17.11 Unilateral primary osteoarthritis, right knee; N76.0 Acute vaginitis; B95.1 Streptococcus, group B, as the cause of diseases classified elsewhere; M54.31 Sciatica, right side; Z62.810 Personal history of physical and sexual abuse in childhood; Z86.69 Personal history of other diseases of the nervous system and sense organs; Z86.2 Personal history of diseases of the blood and blood-forming organs and certain disorders involving the immune mechanism; Z86.19 Personal history of other infectious and parasitic diseases; Z91.018 Allergy to other foods; Z86.73 Personal history of transient ischemic attack (TIA), and cerebral infarction without residual deficits; Z56.0 Unemployment, unspecified; Z59.0 Homelessness; Z88.8 Allergy status to other drugs, medicaments and biological substances; Z91.010 Allergy to peanuts
CPT/HCPCS: 36415; 80053; 81025; 85025; 85027; 86593; 86780; 87070; 87077; 87205; 87661; C9803; U0003

== ENCOUNTER 2020-02-12 12:39 | Inpatient (IN) | payer OTHER ==
[2020-02-12 13:34] VITALS: BMI 22.4
[2020-02-12] MEDS ORDERED: ACETAMINOPHEN 325 MG TABLET (FP) PO PRN (14:47)
[2020-02-12] MEDS ORDERED: BISMUTH SUBSALICYLATE 262 MG/15 ML BTL PO PRN (14:47)
[2020-02-12] MEDS ORDERED: diazePAM 5 MG TABLET PO PRN (14:47)
[2020-02-12] MEDS ORDERED: MAG HYDROX/AL HYDROX/SIMETH 30 ML UNIT-DOSE CUP PO PRN (14:47)
[2020-02-12] MEDS ORDERED: IBUPROFEN 400 MG TABLET (FP) PO PRN (14:47)
[2020-02-12] MEDS ORDERED: MENTHOL/PHENOL 1 EACH UD MM PRN (14:47)
[2020-02-12] MEDS ORDERED: MAGNESIUM HYDROX 2400MG/30ML ORAL SUSPENSION 30 ML CUP PO PRN (14:47)
[2020-02-12] MEDS ORDERED: MAGNESIUM CITRATE 300 ML BOTTLE PO PRN (14:47)
[2020-02-12] MEDS ORDERED: ONDANSETRON *ODT* 4 MG TABLET SL PRN (14:47)
[2020-02-12] MEDS ORDERED: NICOTINE POLACRILEX 2 MG GUM BUC PRN (14:47)
[2020-02-12] MEDS: METHOCARBAMOL 500 MG TABLET PO PRN (15:29)
[2020-02-12] MEDS: NICOTINE 14 MG/24 HOURS TOPICAL PATCH TD SCH (15:31)
[2020-02-12] MEDS: PANTOPRAZOLE 20 MG TABLET PO SCH (15:42)
[2020-02-12 17:09] LABS: POTASSIUM 3.9 mmol/L (3.5-5.1)
[2020-02-12 17:11] LABS: CALCIUM 9.5 mg/dL (8.5-10.1)
[2020-02-12 17:12] LABS: ALBUMIN 3.9 g/dl (3.4-5.0); BLOOD UREA NITROGEN 12.3 mg/dL (7-18); HEMATOCRIT 39.6 % (32.4-45.2); HEMOGLOBIN 12.9 GM/dL (10.7-15.3); MCH 28.2 pg (25.7-33.7); MCHC 32.5 g/dl (32.0-36.0); MEAN CELL VOLUME 86.7 fl (80-96); MEAN PLT VOLUME 7.1 fl (7.5-11.1); PLATELET COUNT 517 K/MM3 (134-434); RBC 4.58 M/mm3 (3.60-5.2); RDW 13.5 % (11.6-15.6); WHITE BLOOD COUNT 7.4 K/mm3 (4.0-10.0)
[2020-02-12 17:15] LABS: CREATININE 0.8 mg/dL (0.55-1.3)
[2020-02-12 17:17] LABS: BILIRUBIN,TOTAL 0.4 mg/dL (0.2-1); TOT PROT 7.7 g/dl (6.4-8.2)
[2020-02-12] MEDS: diazePAM 5 MG TABLET PO SCH ×2 (17:48→22:20)
[2020-02-12] MEDS: hydrOXYzine PAMOATE 25 MG CAPSULE (FP) PO SCH ×2 (17:48→22:20)
[2020-02-12] MEDS: THIAMINE HCL 100 MG TABLET (FP) PO SCH (22:20)
[2020-02-12] MEDS: MELATONIN 5 MG TABLETS PO SCH (22:20)
[2020-02-13] MEDS: diazePAM 5 MG TABLET PO SCH ×4 (05:58→22:38)
[2020-02-13] MEDS: hydrOXYzine PAMOATE 25 MG CAPSULE (FP) PO SCH ×5 (06:06→22:07)
[2020-02-13] MEDS: PRENATAL VITAMINS W/ FOLIC ACID TABLET (FP) PO SCH (10:35)
[2020-02-13] MEDS: NICOTINE 14 MG/24 HOURS TOPICAL PATCH TD SCH (10:35)
[2020-02-13] MEDS: PANTOPRAZOLE 20 MG TABLET PO SCH (10:36)
[2020-02-13] MEDS: risperiDONE 2 MG TABLET PO SCH ×2 (12:07→22:07)
[2020-02-13] MEDS: CITALOPRAM HYDROBROMIDE 10 MG TABLET PO SCH (12:07)
[2020-02-13] MEDS: LURASIDONE HCL 40 MG TABLET PO SCH ×2 (12:07→22:07)
[2020-02-13] MEDS: THIAMINE HCL 100 MG TABLET (FP) PO SCH (22:06)
[2020-02-13] MEDS: diazePAM 5 MG TABLET PO ONE (22:07)
[2020-02-13] MEDS: traZODone HCL 50 MG TABLET (FP) PO SCH (22:07)
[2020-02-13] MEDS: METHOCARBAMOL 500 MG TABLET PO PRN (22:26)
[2020-02-13] MEDS: MELATONIN 5 MG TABLETS PO SCH (22:35)
[2020-02-14] MEDS: hydrOXYzine PAMOATE 25 MG CAPSULE (FP) PO SCH ×5 (07:05→22:24)
[2020-02-14] MEDS: diazePAM 5 MG TABLET PO SCH ×3 (07:05→22:20)
[2020-02-14 10:22] LABS: BASO % 0.4 % (0-2.0); EOS % 1.7 % (0-4.5); HEMOGLOBIN 11.5 GM/dL (10.7-15.3); LYMPH % 61.9 % (8-40); MCH 28.8 pg (25.7-33.7); MCHC 32.9 g/dl (32.0-36.0); MEAN CELL VOLUME 87.5 fl (80-96); MEAN PLT VOLUME 7.4 fl (7.5-11.1); MONO % 11.2 % (3.8-10.2); NEUT % 24.8 % (42.8-82.8); PLATELET COUNT 426 K/MM3 (134-434); RDW 13.8 % (11.6-15.6); WHITE BLOOD COUNT 6.5 K/mm3 (4.0-10.0)
[2020-02-14] MEDS: risperiDONE 2 MG TABLET PO SCH ×2 (10:29→22:20)
[2020-02-14] MEDS: METHOCARBAMOL 500 MG TABLET PO PRN ×2 (10:29→17:44)
[2020-02-14] MEDS: CITALOPRAM HYDROBROMIDE 10 MG TABLET PO SCH (10:29)
[2020-02-14] MEDS: PANTOPRAZOLE 20 MG TABLET PO SCH (10:29)
[2020-02-14] MEDS: NICOTINE 14 MG/24 HOURS TOPICAL PATCH TD SCH (10:30)
[2020-02-14] MEDS: LURASIDONE HCL 40 MG TABLET PO SCH ×2 (10:30→22:20)
[2020-02-14] MEDS: PRENATAL VITAMINS W/ FOLIC ACID TABLET (FP) PO SCH (10:30)
[2020-02-14 11:44] LABS: ANISOCYTOSIS 1+; MACROCYTOSIS 0; PLATELET ESTIMATE NORMAL; TARGET CELLS 1+
[2020-02-14] MEDS: THIAMINE HCL 100 MG TABLET (FP) PO SCH (22:20)
[2020-02-14] MEDS: traZODone HCL 50 MG TABLET (FP) PO SCH (22:20)
[2020-02-14] MEDS: ACETAMINOPHEN 325 MG TABLET (FP) PO PRN (22:23)
[2020-02-14] MEDS: MELATONIN 5 MG TABLETS PO SCH (22:24)
[2020-02-15] MEDS: diazePAM 5 MG TABLET PO SCH ×2 (06:06→17:10)
[2020-02-15] MEDS: hydrOXYzine PAMOATE 25 MG CAPSULE (FP) PO SCH ×5 (06:06→21:23)
[2020-02-15] MEDS: CITALOPRAM HYDROBROMIDE 10 MG TABLET PO SCH (10:04)
[2020-02-15] MEDS: PANTOPRAZOLE 20 MG TABLET PO SCH (10:04)
[2020-02-15] MEDS: risperiDONE 2 MG TABLET PO SCH ×2 (10:04→21:23)
[2020-02-15] MEDS: LURASIDONE HCL 40 MG TABLET PO SCH ×2 (10:04→21:23)
[2020-02-15] MEDS: METHOCARBAMOL 500 MG TABLET PO PRN (10:04)
[2020-02-15] MEDS: PRENATAL VITAMINS W/ FOLIC ACID TABLET (FP) PO SCH (10:05)
[2020-02-15] MEDS: NICOTINE 14 MG/24 HOURS TOPICAL PATCH TD SCH (10:05)
[2020-02-15] MEDS: ACETAMINOPHEN 325 MG TABLET (FP) PO PRN (15:38)
[2020-02-15] MEDS: THIAMINE HCL 100 MG TABLET (FP) PO SCH (21:23)
[2020-02-15] MEDS: traZODone HCL 50 MG TABLET (FP) PO SCH (21:23)
[2020-02-15] MEDS: MELATONIN 5 MG TABLETS PO SCH (21:23)
[2020-02-16] MEDS: hydrOXYzine PAMOATE 25 MG CAPSULE (FP) PO SCH ×5 (07:19→22:11)
[2020-02-16] MEDS: diazePAM 5 MG TABLET PO ONE (07:19)
[2020-02-16] MEDS: LURASIDONE HCL 40 MG TABLET PO SCH ×2 (10:11→22:11)
[2020-02-16] MEDS: PANTOPRAZOLE 20 MG TABLET PO SCH (10:11)
[2020-02-16] MEDS: risperiDONE 2 MG TABLET PO SCH ×2 (10:11→22:11)
[2020-02-16] MEDS: NICOTINE 14 MG/24 HOURS TOPICAL PATCH TD SCH (10:11)
[2020-02-16] MEDS: CITALOPRAM HYDROBROMIDE 10 MG TABLET PO SCH (10:11)
[2020-02-16] MEDS: PRENATAL VITAMINS W/ FOLIC ACID TABLET (FP) PO SCH (10:12)
[2020-02-16] MEDS: METHOCARBAMOL 500 MG TABLET PO PRN ×2 (10:12→18:15)
[2020-02-16] MEDS: traZODone HCL 50 MG TABLET (FP) PO SCH (22:11)
[2020-02-16] MEDS: THIAMINE HCL 100 MG TABLET (FP) PO SCH (22:11)
[2020-02-16] MEDS: MELATONIN 5 MG TABLETS PO SCH (22:11)
[2020-02-17] MEDS: hydrOXYzine PAMOATE 25 MG CAPSULE (FP) PO SCH ×2 (07:21→10:25)
[2020-02-17 10:01] VITALS: BP 101/57; PULSE 98; TEMP 97.8
[2020-02-17] MEDS: ACETAMINOPHEN 325 MG TABLET (FP) PO PRN (10:22)
[2020-02-17] MEDS: risperiDONE 2 MG TABLET PO SCH (10:22)
[2020-02-17] MEDS: LURASIDONE HCL 40 MG TABLET PO SCH (10:22)
[2020-02-17] MEDS: PANTOPRAZOLE 20 MG TABLET PO SCH (10:22)
[2020-02-17] MEDS: CITALOPRAM HYDROBROMIDE 10 MG TABLET PO SCH (10:22)
[2020-02-17] MEDS: PRENATAL VITAMINS W/ FOLIC ACID TABLET (FP) PO SCH (10:24)
[2020-02-17] MEDS: NICOTINE 14 MG/24 HOURS TOPICAL PATCH TD SCH (10:25)
== END 2020-02-17 10:41 | disposition home or self-care (01) | DRG 774 ==
LOC: YASAS 12:39 → Y6N 14:14
PROVIDERS: ADMIT Allergy & Immunology; ATTEND Allergy & Immunology
PROC: HZ2ZZZZ Detoxification Services for Substance Abuse Treatment (ICD-10-PCS; principal; 2020-02-12)
DX: F10.230 Alcohol dependence with withdrawal, uncomplicated (principal); F14.20 Cocaine dependence, uncomplicated; F12.20 Cannabis dependence, uncomplicated; F17.210 Nicotine dependence, cigarettes, uncomplicated; F31.9 Bipolar disorder, unspecified; F25.9 Schizoaffective disorder, unspecified; F19.24 Other psychoactive substance dependence with psychoactive substance-induced mood disorder; F19.282 Other psychoactive substance dependence with psychoactive substance-induced sleep disorder; F19.280 Other psychoactive substance dependence with psychoactive substance-induced anxiety disorder; J44.9 Chronic obstructive pulmonary disease, unspecified; M54.32 Sciatica, left side; D69.6 Thrombocytopenia, unspecified; D57.3 Sickle-cell trait; K21.9 Gastro-esophageal reflux disease without esophagitis; M17.11 Unilateral primary osteoarthritis, right knee; Z88.8 Allergy status to other drugs, medicaments and biological substances; Z91.010 Allergy to peanuts; Z91.018 Allergy to other foods; Z86.19 Personal history of other infectious and parasitic diseases; Z86.69 Personal history of other diseases of the nervous system and sense organs
CPT/HCPCS: 36415; 80053; 81025; 85025; 85027; 86593; 86780; C9803; U0003

== ENCOUNTER 2020-08-11 07:07 | Inpatient (IN) | payer OTHER ==
[2020-08-11 07:13] VITALS: BMI 22.4
[2020-08-11] MEDS ORDERED: MAGNESIUM CITRATE 300 ML BOTTLE PO PRN (09:49)
[2020-08-11] MEDS ORDERED: ACETAMINOPHEN 325 MG TABLET (FP) PO PRN ×2 (09:49)
[2020-08-11] MEDS ORDERED: diazePAM 5 MG TABLET PO PRN (09:49)
[2020-08-11] MEDS ORDERED: MAG HYDROX/AL HYDROX/SIMETH 30 ML UNIT-DOSE CUP PO PRN (09:49)
[2020-08-11] MEDS ORDERED: ONDANSETRON *ODT* 4 MG TABLET SL PRN (09:49)
[2020-08-11] MEDS ORDERED: NICOTINE POLACRILEX 2 MG GUM BUC PRN (09:49)
[2020-08-11] MEDS ORDERED: MAGNESIUM HYDROX 2400MG/30ML ORAL SUSPENSION 30 ML CUP PO PRN (09:49)
[2020-08-11] MEDS ORDERED: BISMUTH SUBSALICYLATE 524 MG/30 ML PO PRN (09:49)
[2020-08-11] MEDS ORDERED: MENTHOL/PHENOL 1 EACH UD MM PRN (09:49)
[2020-08-11] MEDS ORDERED: ALBUTEROL SO4 HFA INHALER IH PRN (09:52)
[2020-08-11] MEDS: NICOTINE 21 MG/24 HOURS TOPICAL PATCH TD SCH (11:01)
[2020-08-11] MEDS: hydrOXYzine PAMOATE 25 MG CAPSULE (FP) PO SCH ×2 (11:02→14:08)
[2020-08-11] MEDS: PANTOPRAZOLE 20 MG TABLET PO SCH (11:02)
[2020-08-11] MEDS: PRENATAL VITAMINS W/ FOLIC ACID TABLET (FP) PO SCH (11:02)
[2020-08-11] MEDS: diazePAM 5 MG TABLET PO SCH ×3 (11:03→22:26)
[2020-08-11 13:20] LABS: HEMATOCRIT 36.2 % (32.4-45.2); HEMOGLOBIN 11.9 GM/dL (10.7-15.3); MEAN CELL VOLUME 87.7 fl (80-96); PLATELET COUNT 369 10^3/uL (134-434); RBC 4.12 M/mm3 (3.60-5.2); RDW 14.6 % (11.6-15.6); WHITE BLOOD COUNT 9.8 K/mm3 (4.0-10.0)
[2020-08-11 14:12] LABS: ALBUMIN 3.5 g/dl (3.4-5.0); BILIRUBIN,TOTAL 0.2 mg/dL (0.2-1); BLOOD UREA NITROGEN 12.9 mg/dL (7-18); CALCIUM 8.8 mg/dL (8.5-10.1); CREATININE 0.6 mg/dL (0.55-1.3); TOT PROT 6.7 g/dl (6.4-8.2)
[2020-08-11] MEDS: IBUPROFEN 400 MG TABLET (FP) PO PRN (21:08)
[2020-08-11] MEDS: METHOCARBAMOL 500 MG TABLET PO PRN (21:08)
[2020-08-11] MEDS: risperiDONE 2 MG TABLET PO SCH (22:25)
[2020-08-11] MEDS: traZODone HCL 50 MG TABLET (FP) PO SCH (22:25)
[2020-08-11] MEDS: THIAMINE HCL 100 MG TABLET (FP) PO SCH (22:25)
[2020-08-11] MEDS: MELATONIN 5 MG TABLETS PO SCH (22:25)
[2020-08-11] MEDS: hydrOXYzine PAMOATE 25 MG CAPSULE (FP) PO PRN (22:25)
[2020-08-11] MEDS: LURASIDONE HCL 40 MG TABLET PO SCH (22:25)
[2020-08-12] MEDS: hydrOXYzine PAMOATE 25 MG CAPSULE (FP) PO PRN (06:40)
[2020-08-12] MEDS: diazePAM 5 MG TABLET PO SCH ×4 (06:40→22:24)
[2020-08-12] MEDS: METHOCARBAMOL 500 MG TABLET PO PRN (10:29)
[2020-08-12] MEDS: IBUPROFEN 400 MG TABLET (FP) PO PRN ×2 (10:29→17:33)
[2020-08-12] MEDS: PRENATAL VITAMINS W/ FOLIC ACID TABLET (FP) PO SCH (10:30)
[2020-08-12] MEDS: CITALOPRAM HYDROBROMIDE 20 MG TABLET PO SCH (10:31)
[2020-08-12] MEDS: PANTOPRAZOLE 20 MG TABLET PO SCH (10:31)
[2020-08-12] MEDS: risperiDONE 2 MG TABLET PO SCH ×2 (10:31→22:23)
[2020-08-12] MEDS: LURASIDONE HCL 40 MG TABLET PO SCH ×2 (10:31→22:23)
[2020-08-12] MEDS: NICOTINE 21 MG/24 HOURS TOPICAL PATCH TD SCH (10:31)
[2020-08-12] MEDS: MELATONIN 5 MG TABLETS PO SCH (22:23)
[2020-08-12] MEDS: THIAMINE HCL 100 MG TABLET (FP) PO SCH (22:23)
[2020-08-12] MEDS: traZODone HCL 50 MG TABLET (FP) PO SCH (22:23)
[2020-08-12] MEDS: metroNIDAZOLE 500 MG TABLET PO SCH (22:23)
[2020-08-13] MEDS: metroNIDAZOLE 500 MG TABLET PO SCH ×3 (05:53→23:23)
[2020-08-13] MEDS: diazePAM 5 MG TABLET PO SCH ×3 (05:54→23:24)
[2020-08-13] MEDS: IBUPROFEN 400 MG TABLET (FP) PO PRN ×2 (05:55→11:15)
[2020-08-13] MEDS: PRENATAL VITAMINS W/ FOLIC ACID TABLET (FP) PO SCH (10:15)
[2020-08-13] MEDS: NICOTINE 21 MG/24 HOURS TOPICAL PATCH TD SCH (10:15)
[2020-08-13] MEDS: PANTOPRAZOLE 20 MG TABLET PO SCH (10:17)
[2020-08-13] MEDS: LURASIDONE HCL 40 MG TABLET PO SCH ×2 (10:17→23:23)
[2020-08-13] MEDS: risperiDONE 2 MG TABLET PO SCH ×2 (10:17→23:24)
[2020-08-13] MEDS: METHOCARBAMOL 500 MG TABLET PO PRN (10:17)
[2020-08-13] MEDS: CITALOPRAM HYDROBROMIDE 20 MG TABLET PO SCH (10:17)
[2020-08-13] MEDS ORDERED: NAPROXEN 500 MG TABLET PO PRN (22:00)
[2020-08-13] MEDS: traZODone HCL 50 MG TABLET (FP) PO SCH (23:22)
[2020-08-13] MEDS: MELATONIN 5 MG TABLETS PO SCH (23:23)
[2020-08-13] MEDS: THIAMINE HCL 100 MG TABLET (FP) PO SCH (23:24)
[2020-08-14] MEDS ORDERED: ACETAMINOPHEN 325 MG TABLET (FP) PO PRN (05:37)
[2020-08-14] MEDS: metroNIDAZOLE 500 MG TABLET PO SCH ×3 (07:12→22:35)
[2020-08-14] MEDS: diazePAM 5 MG TABLET PO SCH ×2 (07:12→17:41)
[2020-08-14] MEDS ORDERED: LIDOCAINE 5% TOPICAL PATCH TP SCH (10:00)
[2020-08-14] MEDS: LURASIDONE HCL 40 MG TABLET PO SCH ×2 (10:39→22:38)
[2020-08-14] MEDS: PANTOPRAZOLE 20 MG TABLET PO SCH (10:39)
[2020-08-14] MEDS: CITALOPRAM HYDROBROMIDE 20 MG TABLET PO SCH (10:39)
[2020-08-14] MEDS: PRENATAL VITAMINS W/ FOLIC ACID TABLET (FP) PO SCH (10:39)
[2020-08-14] MEDS: NICOTINE 21 MG/24 HOURS TOPICAL PATCH TD SCH (10:39)
[2020-08-14] MEDS: risperiDONE 2 MG TABLET PO SCH ×2 (10:39→22:36)
[2020-08-14] MEDS: IBUPROFEN 400 MG TABLET (FP) PO PRN ×3 (10:41→22:41)
[2020-08-14] MEDS ORDERED: LIDOCAINE PATCH REMOVAL MC SCH (22:00)
[2020-08-14] MEDS: traZODone HCL 50 MG TABLET (FP) PO SCH (22:35)
[2020-08-14] MEDS: THIAMINE HCL 100 MG TABLET (FP) PO SCH (22:35)
[2020-08-14] MEDS: MELATONIN 5 MG TABLETS PO SCH (22:36)
[2020-08-14] MEDS: METHOCARBAMOL 500 MG TABLET PO PRN (22:37)
[2020-08-15] MEDS ORDERED: diazePAM 5 MG TABLET PO ONE (06:00)
[2020-08-15] MEDS: metroNIDAZOLE 500 MG TABLET PO SCH (07:20)
[2020-08-15] MEDS: IBUPROFEN 400 MG TABLET (FP) PO PRN (07:20)
[2020-08-15 07:44] VITALS: BP 105/70; PULSE 84; TEMP 96.9
== END 2020-08-15 09:06 | disposition home or self-care (01) | DRG 774 ==
LOC: YASAS 07:07 → Y3N 10:31
PROVIDERS: ADMIT Allergy & Immunology; ATTEND Allergy & Immunology
PROC: HZ2ZZZZ Detoxification Services for Substance Abuse Treatment (ICD-10-PCS; principal; 2020-08-11)
DX: F10.230 Alcohol dependence with withdrawal, uncomplicated (principal); F14.20 Cocaine dependence, uncomplicated; F12.20 Cannabis dependence, uncomplicated; F17.210 Nicotine dependence, cigarettes, uncomplicated; F31.9 Bipolar disorder, unspecified; F19.282 Other psychoactive substance dependence with psychoactive substance-induced sleep disorder; F19.280 Other psychoactive substance dependence with psychoactive substance-induced anxiety disorder; J43.0 Unilateral pulmonary emphysema [MacLeod's syndrome]; D57.3 Sickle-cell trait; K21.9 Gastro-esophageal reflux disease without esophagitis; N89.8 Other specified noninflammatory disorders of vagina; R30.0 Dysuria; M54.5 Low back pain; M54.32 Sciatica, left side; M17.11 Unilateral primary osteoarthritis, right knee; Z62.810 Personal history of physical and sexual abuse in childhood; Z86.73 Personal history of transient ischemic attack (TIA), and cerebral infarction without residual deficits; Z86.69 Personal history of other diseases of the nervous system and sense organs; Z56.0 Unemployment, unspecified; Z59.0 Homelessness
CPT/HCPCS: 36415; 71046-TC-FY; 80053; 85027; 86593; 86780; 87491; 87591; 87661; C9803; U0003; U0005

== ENCOUNTER 2020-08-13 22:31 | Emergency (ER) | payer OTHER ==
[2020-08-13 22:50] VITALS: BMI 22.4
[2020-08-13] MEDS ORDERED: LIDOCAINE HCL 1%, 10 MG/ML (50 mL VIAL) SQ ONE (23:30)
[2020-08-13] MEDS ORDERED: LIDOCAINE 1%/EPI 1:100000 (20 ML MULTI DOSE VIAL) ONE (23:33)
[2020-08-14] MEDS ORDERED: ACETAMINOPHEN 500 MG TABLET (FP) PO ONE (00:24)
[2020-08-14] MEDS ORDERED: KETOROLAC TROMETHAMINE 15 MG/ML VIAL IM ONE (00:24)
[2020-08-14] MEDS ORDERED: LIDOCAINE 5% TOPICAL PATCH TP ONE (00:24)
[2020-08-14] MEDS ORDERED: ACETAMINOPHEN 325 MG TABLET (FP) ONE (00:39)
[2020-08-14] MEDS ORDERED: LIDOCAINE 5% TOPICAL PATCH ONE (00:40)
[2020-08-14] MEDS ORDERED: KETOROLAC TROMETHAMINE 15 MG/ML VIAL ONE (00:40)
[2020-08-14 03:57] VITALS: BP 105/65; PULSE 60; TEMP 98.5
[2020-08-14] MEDS ORDERED: LIDOCAINE PATCH REMOVAL MC ONE (12:00)
== END 2020-08-14 03:58 ==
LOC: JER 22:31
PROC: 3E0233Z Introduction of Anti-inflammatory into Muscle, Percutaneous Approach (ICD-10-PCS; principal; 2020-08-14)
DX: M25.551 Pain in right hip (principal)
CPT/HCPCS: 99284-25

== ENCOUNTER 2020-10-10 08:54 | Inpatient (IN) | payer OTHER ==
[2020-10-10 09:36] VITALS: BMI 21.4
[2020-10-10] MEDS ORDERED: LORazepam 1 MG TABLET PO PRN (11:45)
[2020-10-10] MEDS ORDERED: MAGNESIUM CITRATE 300 ML BOTTLE PO PRN (11:46)
[2020-10-10] MEDS ORDERED: ONDANSETRON *ODT* 4 MG TABLET SL PRN (11:46)
[2020-10-10] MEDS ORDERED: ACETAMINOPHEN 325 MG TABLET (FP) PO PRN (11:46)
[2020-10-10] MEDS ORDERED: MAG HYDROX/AL HYDROX/SIMETH 30 ML UNIT-DOSE CUP PO PRN (11:46)
[2020-10-10] MEDS ORDERED: NICOTINE 10 MG CARTRIDGE (INHALER) IH PRN (11:46)
[2020-10-10] MEDS ORDERED: MENTHOL/PHENOL 1 EACH UD MM PRN (11:46)
[2020-10-10] MEDS ORDERED: BISMUTH SUBSALICYLATE 524 MG/30 ML PO PRN (11:46)
[2020-10-10] MEDS ORDERED: NICOTINE POLACRILEX 2 MG GUM BUC PRN (11:46)
[2020-10-10] MEDS ORDERED: MAGNESIUM HYDROX 2400MG/30ML ORAL SUSPENSION 30 ML CUP PO PRN (11:46)
[2020-10-10] MEDS ORDERED: ALBUTEROL SO4 HFA INHALER IH PRN (11:54)
[2020-10-10] MEDS: hydrOXYzine PAMOATE 25 MG CAPSULE (FP) PO SCH ×3 (15:01→23:45)
[2020-10-10] MEDS: LORazepam 2 MG TABLET PO SCH ×2 (23:44→23:45)
[2020-10-10] MEDS: THIAMINE HCL 100 MG TABLET (FP) PO SCH (23:45)
[2020-10-10] MEDS: MELATONIN 5 MG TABLETS PO SCH (23:45)
[2020-10-10] MEDS ORDERED: ACETAMINOPHEN 325 MG TABLET (FP) ONE (23:49)
[2020-10-11] MEDS ORDERED: LORazepam 2 MG TABLET ONE (06:39)
[2020-10-11] MEDS ORDERED: hydrOXYzine PAMOATE 25 MG CAPSULE (FP) PO ONE (06:40)
[2020-10-11] MEDS: hydrOXYzine PAMOATE 25 MG CAPSULE (FP) PO SCH ×4 (06:42→22:14)
[2020-10-11] MEDS: LORazepam 2 MG TABLET PO SCH ×4 (06:42→23:26)
[2020-10-11] MEDS: NICOTINE 21 MG/24 HOURS TOPICAL PATCH TD SCH (14:16)
[2020-10-11] MEDS: PRENATAL VITAMINS W/ FOLIC ACID TABLET (FP) PO SCH (14:34)
[2020-10-11] MEDS: IBUPROFEN 400 MG TABLET (FP) PO PRN ×2 (14:35→22:17)
[2020-10-11] MEDS: METHOCARBAMOL 500 MG TABLET PO PRN (14:35)
[2020-10-11] MEDS: LURASIDONE HCL 40 MG TABLET PO SCH (22:14)
[2020-10-11] MEDS: risperiDONE 2 MG TABLET PO SCH (22:14)
[2020-10-11] MEDS: THIAMINE HCL 100 MG TABLET (FP) PO SCH (22:14)
[2020-10-11] MEDS: MELATONIN 5 MG TABLETS PO SCH (22:14)
[2020-10-11] MEDS: traZODone HCL 50 MG TABLET (FP) PO SCH (23:26)
[2020-10-12] MEDS: hydrOXYzine PAMOATE 25 MG CAPSULE (FP) PO SCH ×5 (06:19→23:12)
[2020-10-12] MEDS: LORazepam 1 MG TABLET PO SCH ×4 (06:19→23:11)
[2020-10-12] MEDS: ACETAMINOPHEN 325 MG TABLET (FP) PO PRN (06:20)
[2020-10-12 10:22] LABS: HEMATOCRIT 35.9 % (32.4-45.2); HEMOGLOBIN 12.3 GM/dL (10.7-15.3); MCHC 34.2 g/dl (32.0-36.0); MEAN CELL VOLUME 87.7 fl (80-96); MEAN PLT VOLUME 6.9 fl (7.5-11.1); PLATELET COUNT 392 10^3/uL (134-434); RBC 4.09 M/mm3 (3.60-5.2); RDW 13.7 % (11.6-15.6); WHITE BLOOD COUNT 6.1 K/mm3 (4.0-10.0)
[2020-10-12] MEDS: IBUPROFEN 400 MG TABLET (FP) PO PRN (10:44)
[2020-10-12] MEDS: METHOCARBAMOL 500 MG TABLET PO PRN (10:44)
[2020-10-12] MEDS: risperiDONE 2 MG TABLET PO SCH ×2 (10:44→23:12)
[2020-10-12] MEDS: PRENATAL VITAMINS W/ FOLIC ACID TABLET (FP) PO SCH (10:44)
[2020-10-12] MEDS: LURASIDONE HCL 40 MG TABLET PO SCH ×2 (10:48→23:11)
[2020-10-12] MEDS: NICOTINE 21 MG/24 HOURS TOPICAL PATCH TD SCH (10:49)
[2020-10-12 12:02] LABS: BLOOD UREA NITROGEN 18.3 mg/dL (7-18)
[2020-10-12 12:03] LABS: BILIRUBIN,TOTAL 0.2 mg/dL (0.2-1); CALCIUM 8.9 mg/dL (8.5-10.1)
[2020-10-12 12:04] LABS: ALBUMIN 3.1 g/dl (3.4-5.0); CREATININE 0.8 mg/dL (0.55-1.3); TOT PROT 6.3 g/dl (6.4-8.2)
[2020-10-12] MEDS: CITALOPRAM HYDROBROMIDE 10 MG TABLET PO SCH (14:18)
[2020-10-12] MEDS: MELATONIN 5 MG TABLETS PO SCH (23:11)
[2020-10-12] MEDS: traZODone HCL 50 MG TABLET (FP) PO SCH (23:11)
[2020-10-12] MEDS: THIAMINE HCL 100 MG TABLET (FP) PO SCH (23:12)
[2020-10-13] MEDS ORDERED: LORazepam 0.5 MG TABLET PO PRN
[2020-10-13] MEDS: IBUPROFEN 400 MG TABLET (FP) PO PRN (05:51)
[2020-10-13] MEDS: hydrOXYzine PAMOATE 25 MG CAPSULE (FP) PO SCH ×4 (05:52→22:04)
[2020-10-13] MEDS: LORazepam 0.5 MG TABLET PO SCH ×4 (05:53→22:28)
[2020-10-13] MEDS: PRENATAL VITAMINS W/ FOLIC ACID TABLET (FP) PO SCH (10:37)
[2020-10-13] MEDS: LURASIDONE HCL 40 MG TABLET PO SCH ×2 (10:37→22:04)
[2020-10-13] MEDS: NICOTINE 21 MG/24 HOURS TOPICAL PATCH TD SCH (10:37)
[2020-10-13] MEDS: CITALOPRAM HYDROBROMIDE 10 MG TABLET PO SCH (10:37)
[2020-10-13] MEDS: risperiDONE 2 MG TABLET PO SCH ×2 (10:38→22:04)
[2020-10-13] MEDS: ACETAMINOPHEN 325 MG TABLET (FP) PO PRN ×2 (10:39→18:35)
[2020-10-13] MEDS: traZODone HCL 50 MG TABLET (FP) PO SCH (22:03)
[2020-10-13] MEDS: MELATONIN 5 MG TABLETS PO SCH (22:04)
[2020-10-13] MEDS: THIAMINE HCL 100 MG TABLET (FP) PO SCH (22:04)
[2020-10-14] MEDS ORDERED: LORazepam 0.5 MG TABLET PO ONE (05:00)
[2020-10-14] MEDS: hydrOXYzine PAMOATE 25 MG CAPSULE (FP) PO SCH (06:20)
[2020-10-14 09:54] VITALS: BP 104/60; PULSE 75; TEMP 96.9
[2020-10-14] MEDS: IBUPROFEN 400 MG TABLET (FP) PO PRN (10:33)
[2020-10-14] MEDS: risperiDONE 2 MG TABLET PO SCH (10:33)
[2020-10-14] MEDS: LURASIDONE HCL 40 MG TABLET PO SCH (10:33)
[2020-10-14] MEDS: CITALOPRAM HYDROBROMIDE 10 MG TABLET PO SCH (10:33)
[2020-10-14] MEDS: PRENATAL VITAMINS W/ FOLIC ACID TABLET (FP) PO SCH (10:34)
[2020-10-14] MEDS: NICOTINE 21 MG/24 HOURS TOPICAL PATCH TD SCH (10:34)
== END 2020-10-14 11:53 | disposition other institution (70) | DRG 774 ==
LOC: YASAS 08:54 → Y6N 10-11 11:01
PROVIDERS: ADMIT Allergy & Immunology; ATTEND Allergy & Immunology
PROC: HZ2ZZZZ Detoxification Services for Substance Abuse Treatment (ICD-10-PCS; principal; 2020-10-10)
DX: F10.230 Alcohol dependence with withdrawal, uncomplicated (principal); F14.20 Cocaine dependence, uncomplicated; F12.20 Cannabis dependence, uncomplicated; F17.213 Nicotine dependence, cigarettes, with withdrawal; F31.9 Bipolar disorder, unspecified; F19.24 Other psychoactive substance dependence with psychoactive substance-induced mood disorder; D57.3 Sickle-cell trait; J43.0 Unilateral pulmonary emphysema [MacLeod's syndrome]; K21.9 Gastro-esophageal reflux disease without esophagitis; M17.11 Unilateral primary osteoarthritis, right knee; M54.41 Lumbago with sciatica, right side; R76.11 Nonspecific reaction to tuberculin skin test without active tuberculosis; R63.4 Abnormal weight loss; Z68.21 Body mass index [BMI] 21.0-21.9, adult; Z86.73 Personal history of transient ischemic attack (TIA), and cerebral infarction without residual deficits; Z20.2 Contact with and (suspected) exposure to infections with a predominantly sexual mode of transmission; Z56.0 Unemployment, unspecified; Z59.0 Homelessness; Z88.8 Allergy status to other drugs, medicaments and biological substances
CPT/HCPCS: 36415; 71046-TC-FY; 80053; 81025; 85027; 86593; 86780; C9803; U0003; U0005

== ENCOUNTER 2021-02-21 09:07 | Inpatient (IN) | payer OTHER ==
[~2021-02-21 09:07] MED LIST: ACETAMINOPHEN 325 MG TABLET (FP) PO PRN; ALBUTEROL SO4 HFA INHALER IH PRN; CITALOPRAM HYDROBROMIDE 10 MG TABLET PO SCH; IBUPROFEN 400 MG TABLET (FP) PO PRN; LOPERAMIDE HCL 2 MG CAPSULE PO PRN; LURASIDONE HCL 40 MG TABLET PO SCH; MAG HYDROX/AL HYDROX/SIMETH 30 ML UNIT-DOSE CUP PO PRN; MAGNESIUM CITRATE 300 ML BOTTLE PO PRN; MAGNESIUM HYDROX 2400MG/30ML ORAL SUSPENSION 30 ML CUP PO PRN; MELATONIN 5 MG TABLETS PO SCH; NICOTINE 10 MG CARTRIDGE (INHALER) IH PRN; NICOTINE 21 MG/24 HOURS TOPICAL PATCH TD SCH; NICOTINE POLACRILEX 2 MG GUM BC PRN; P-EPHED 60MG/TRIPROLIDI 2.5MG TABLET PO PRN; PRENATAL VITAMINS W/ FOLIC ACID TABLET (FP) PO SCH; THIAMINE HCL 100 MG TABLET (FP) PO SCH; guaiFENesin 200 MG/10 ML 10 ML UNIT-DOSE CUPS PO PRN; hydrOXYzine PAMOATE 25 MG CAPSULE (FP) PO SCH; risperiDONE 2 MG TABLET PO SCH; traZODone HCL 50 MG TABLET (FP) PO SCH
[2021-02-21 10:27] VITALS: BMI 26.5
[2021-02-21] MEDS ORDERED: MAGNESIUM HYDROX 2400MG/30ML ORAL SUSPENSION 30 ML CUP PO PRN (11:46)
[2021-02-21] MEDS ORDERED: MAGNESIUM CITRATE 300 ML BOTTLE PO PRN (11:46)
[2021-02-21] MEDS ORDERED: MAG HYDROX/AL HYDROX/SIMETH 30 ML UNIT-DOSE CUP PO PRN (11:46)
[2021-02-21] MEDS ORDERED: NICOTINE 10 MG CARTRIDGE (INHALER) IH PRN (11:46)
[2021-02-21] MEDS ORDERED: ACETAMINOPHEN 325 MG TABLET (FP) PO PRN ×2 (11:46)
[2021-02-21] MEDS ORDERED: chlordiazePOXIDE HCL 25 MG CAPSULE PO PRN (11:46)
[2021-02-21] MEDS ORDERED: MENTHOL/PHENOL 1 EACH UD MM PRN (11:46)
[2021-02-21] MEDS ORDERED: ONDANSETRON *ODT* 4 MG TABLET SL PRN (11:46)
[2021-02-21] MEDS ORDERED: NICOTINE POLACRILEX 2 MG GUM BUC PRN (11:46)
[2021-02-21] MEDS ORDERED: BISMUTH SUBSALICYLATE 524 MG/30 ML PO PRN (11:46)
[2021-02-21] MEDS ORDERED: MELATONIN 5 MG TABLETS PO PRN (11:46)
[2021-02-21] MEDS ORDERED: hydrOXYzine PAMOATE 25 MG CAPSULE (FP) PO PRN (11:46)
[2021-02-21] MEDS: IBUPROFEN 400 MG TABLET (FP) PO PRN ×2 (12:50→19:05)
[2021-02-21] MEDS: chlordiazePOXIDE HCL 25 MG CAPSULE PO SCH ×2 (19:09→23:57)
[2021-02-21] MEDS: traZODone HCL 50 MG TABLET (FP) PO SCH (23:57)
[2021-02-21] MEDS: risperiDONE 2 MG TABLET PO SCH (23:57)
[2021-02-21] MEDS: THIAMINE HCL 100 MG TABLET (FP) PO SCH (23:57)
[2021-02-21] MEDS: LURASIDONE HCL 40 MG TABLET PO SCH (23:57)
[2021-02-21] MEDS: METHOCARBAMOL 500 MG TABLET PO PRN (23:58)
[2021-02-22] MEDS: chlordiazePOXIDE HCL 25 MG CAPSULE PO SCH ×4 (06:53→23:42)
[2021-02-22 10:39] LABS: HEMATOCRIT 39.9 % (32.4-45.2); HEMOGLOBIN 13.2 GM/dL (10.7-15.3); MCH 28.9 pg (25.7-33.7); MCHC 33.1 g/dl (32.0-36.0); MEAN CELL VOLUME 87.5 fl (80-96); MEAN PLT VOLUME 7.2 fl (7.5-11.1); PLATELET COUNT 471 10^3/uL (134-434); RBC 4.56 M/mm3 (3.60-5.2); RDW 13.7 % (11.6-15.6); WHITE BLOOD COUNT 6.2 K/mm3 (4.0-10.0)
[2021-02-22 10:52] LABS: ALBUMIN 3.3 g/dl (3.4-5.0)
[2021-02-22 10:53] LABS: BLOOD UREA NITROGEN 16.3 mg/dL (7-18); CALCIUM 9.2 mg/dL (8.5-10.1)
[2021-02-22 10:54] LABS: CREATININE 0.9 mg/dL (0.55-1.3)
[2021-02-22 10:55] LABS: BILIRUBIN,TOTAL 0.2 mg/dL (0.2-1); TOT PROT 7.1 g/dl (6.4-8.2)
[2021-02-22] MEDS: CITALOPRAM HYDROBROMIDE 10 MG TABLET PO SCH (12:31)
[2021-02-22] MEDS: PRENATAL VITAMINS W/ FOLIC ACID TABLET (FP) PO SCH (12:31)
[2021-02-22] MEDS: risperiDONE 2 MG TABLET PO SCH ×2 (12:31→22:42)
[2021-02-22] MEDS: NICOTINE 7 MG/24 HOURS TOPICAL PATCH TD SCH (12:31)
[2021-02-22] MEDS: LURASIDONE HCL 40 MG TABLET PO SCH ×2 (12:31→22:42)
[2021-02-22] MEDS: IBUPROFEN 400 MG TABLET (FP) PO PRN (18:43)
[2021-02-22] MEDS: METHOCARBAMOL 500 MG TABLET PO PRN (18:44)
[2021-02-22] MEDS: THIAMINE HCL 100 MG TABLET (FP) PO SCH (22:42)
[2021-02-22] MEDS: traZODone HCL 50 MG TABLET (FP) PO SCH (22:42)
[2021-02-23] MEDS: chlordiazePOXIDE HCL 25 MG CAPSULE PO SCH ×4 (06:59→22:43)
[2021-02-23] MEDS: CITALOPRAM HYDROBROMIDE 10 MG TABLET PO SCH (11:09)
[2021-02-23] MEDS: LURASIDONE HCL 40 MG TABLET PO SCH ×2 (11:09→21:50)
[2021-02-23] MEDS: NICOTINE 7 MG/24 HOURS TOPICAL PATCH TD SCH (11:09)
[2021-02-23] MEDS: PRENATAL VITAMINS W/ FOLIC ACID TABLET (FP) PO SCH (11:09)
[2021-02-23] MEDS: risperiDONE 2 MG TABLET PO SCH ×2 (11:10→21:49)
[2021-02-23] MEDS: IBUPROFEN 400 MG TABLET (FP) PO PRN ×2 (13:34→21:51)
[2021-02-23] MEDS: THIAMINE HCL 100 MG TABLET (FP) PO SCH (21:49)
[2021-02-23] MEDS: traZODone HCL 50 MG TABLET (FP) PO SCH (21:49)
[2021-02-24] MEDS ORDERED: chlordiazePOXIDE HCL 10 MG CAPSULE PO PRN
[2021-02-24] MEDS: chlordiazePOXIDE HCL 10 MG CAPSULE PO SCH ×2 (06:11→10:07)
[2021-02-24] MEDS: risperiDONE 2 MG TABLET PO SCH (10:07)
[2021-02-24] MEDS: LURASIDONE HCL 40 MG TABLET PO SCH (10:07)
[2021-02-24] MEDS: PRENATAL VITAMINS W/ FOLIC ACID TABLET (FP) PO SCH (10:07)
[2021-02-24] MEDS: CITALOPRAM HYDROBROMIDE 10 MG TABLET PO SCH (10:07)
[2021-02-24] MEDS: NICOTINE 7 MG/24 HOURS TOPICAL PATCH TD SCH (10:15)
[2021-02-24 10:51] LABS: INR 1.09 (0.83-1.09); PROTHROMBIN TIME (PATIENT) 12.2 SEC (9.7-13.0)
[2021-02-24 12:58] VITALS: TEMP 97.7
[2021-02-24 17:21] VITALS: BP 125/66; PULSE 74
[2021-02-25] MEDS ORDERED: chlordiazePOXIDE HCL 10 MG CAPSULE PO SCH (05:00)
[2021-02-26] MEDS ORDERED: chlordiazePOXIDE HCL 10 MG CAPSULE PO ONE (05:00)
== END 2021-02-24 18:27 | disposition left against medical advice (07) | DRG 770 ==
LOC: YASAS 09:07 → Y3N 11:19
PROVIDERS: ADMIT Allergy & Immunology; ATTEND Allergy & Immunology
PROC: HZ2ZZZZ Detoxification Services for Substance Abuse Treatment (ICD-10-PCS; principal; 2021-02-21)
DX: F10.230 Alcohol dependence with withdrawal, uncomplicated (principal); F14.20 Cocaine dependence, uncomplicated; F12.20 Cannabis dependence, uncomplicated; F17.210 Nicotine dependence, cigarettes, uncomplicated; F31.77 Bipolar disorder, in partial remission, most recent episode mixed; F25.9 Schizoaffective disorder, unspecified; F43.10 Post-traumatic stress disorder, unspecified; J44.9 Chronic obstructive pulmonary disease, unspecified; U07.1 COVID-19; K21.9 Gastro-esophageal reflux disease without esophagitis; D57.3 Sickle-cell trait; D75.839 Thrombocytosis, unspecified; M17.11 Unilateral primary osteoarthritis, right knee; I25.10 Atherosclerotic heart disease of native coronary artery without angina pectoris; I69.959 Hemiplegia and hemiparesis following unspecified cerebrovascular disease affecting unspecified side; I83.93 Asymptomatic varicose veins of bilateral lower extremities; M54.32 Sciatica, left side; Z90.710 Acquired absence of both cervix and uterus; Z88.8 Allergy status to other drugs, medicaments and biological substances; Z86.11 Personal history of tuberculosis; Z86.19 Personal history of other infectious and parasitic diseases; Z91.51 Personal history of suicidal behavior; Z56.0 Unemployment, unspecified; Z59.01 Sheltered homelessness
CPT/HCPCS: 36415; 80053; 81025; 85027; 85032; 85610; 86593; 86780; C9803; U0003; U0005

== ENCOUNTER 2021-04-15 19:43 | Inpatient (IN) | payer OTHER ==
[2021-04-15 22:08] VITALS: BMI 25.1
[2021-04-15] MEDS ORDERED: ALBUTEROL SO4 HFA INHALER IH PRN (22:22)
[2021-04-15] MEDS ORDERED: METHOCARBAMOL 500 MG TABLET PO PRN (22:30)
[2021-04-15] MEDS ORDERED: LOPERAMIDE HCL 2 MG CAPSULE PO PRN (22:30)
[2021-04-15] MEDS ORDERED: ONDANSETRON *ODT* 4 MG TABLET SL PRN (22:30)
[2021-04-15] MEDS ORDERED: MAGNESIUM HYDROX 2400MG/30ML ORAL SUSPENSION 30 ML CUP PO PRN (22:30)
[2021-04-15] MEDS ORDERED: MENTHOL/PHENOL 1 EACH UD MM PRN (22:30)
[2021-04-15] MEDS ORDERED: BISMUTH SUBSALICYLATE 524 MG/30 ML PO PRN (22:30)
[2021-04-15] MEDS ORDERED: ACETAMINOPHEN 325 MG TABLET (FP) PO PRN ×2 (22:30)
[2021-04-15] MEDS ORDERED: MAG HYDROX/AL HYDROX/SIMETH 30 ML UNIT-DOSE CUP PO PRN (22:30)
[2021-04-15] MEDS ORDERED: MAGNESIUM CITRATE 300 ML BOTTLE PO PRN (22:30)
[2021-04-15] MEDS ORDERED: HYDROCORTISONE 0.5% TOPICAL OINTMENT TUBE TP PRN (22:31)
[2021-04-15] MEDS ORDERED: chlordiazePOXIDE HCL 25 MG CAPSULE PO PRN (22:32)
[2021-04-16] MEDS: IBUPROFEN 400 MG TABLET (FP) PO PRN (04:03)
[2021-04-16] MEDS: chlordiazePOXIDE HCL 25 MG CAPSULE PO SCH ×4 (04:04→22:50)
[2021-04-16] MEDS: hydrOXYzine PAMOATE 25 MG CAPSULE (FP) PO SCH ×5 (07:39→22:49)
[2021-04-16] MEDS: PRENATAL VITAMINS W/ FOLIC ACID TABLET (FP) PO SCH (11:05)
[2021-04-16] MEDS: PANTOPRAZOLE 20 MG TABLET PO SCH (11:05)
[2021-04-16 12:38] LABS: HEMATOCRIT 40.4 % (32.4-45.2); HEMOGLOBIN 13.3 GM/dL (10.7-15.3); MCH 28.3 pg (25.7-33.7); MCHC 32.8 g/dl (32.0-36.0); MEAN CELL VOLUME 86.2 fl (80-96); MEAN PLT VOLUME 6.9 fl (7.5-11.1); PLATELET COUNT 514 10^3/uL (134-434); RBC 4.68 M/mm3 (3.60-5.2); RDW 14.4 % (11.6-15.6); WHITE BLOOD COUNT 6.5 K/mm3 (4.0-10.0)
[2021-04-16 12:46] LABS: ALBUMIN 3.8 g/dl (3.4-5.0); BLOOD UREA NITROGEN 17.3 mg/dL (7-18); CALCIUM 9.7 mg/dL (8.5-10.1)
[2021-04-16 12:49] LABS: CREATININE 0.9 mg/dL (0.55-1.3)
[2021-04-16 12:51] LABS: BILIRUBIN,TOTAL 0.4 mg/dL (0.2-1); TOT PROT 7.6 g/dl (6.4-8.2)
[2021-04-16] MEDS ORDERED: LURASIDONE HCL 40 MG TABLET PO SCH (22:00)
[2021-04-16] MEDS: THIAMINE HCL 100 MG TABLET (FP) PO SCH (22:49)
[2021-04-16] MEDS: risperiDONE 2 MG TABLET PO SCH (22:49)
[2021-04-16] MEDS: traZODone HCL 50 MG TABLET (FP) PO SCH (22:49)
[2021-04-16] MEDS: MELATONIN 5 MG TABLETS PO SCH (22:49)
[2021-04-16] MEDS: LURASIDONE HCL 20 MG TABLET PO SCH (22:50)
[2021-04-16] MEDS: HYDROCORTISONE 0.5% TOPICAL CREAM 30 GM TUBE TP SCH (22:52)
[2021-04-17] MEDS: hydrOXYzine PAMOATE 25 MG CAPSULE (FP) PO SCH ×5 (06:24→22:19)
[2021-04-17] MEDS: chlordiazePOXIDE HCL 10 MG CAPSULE PO SCH ×4 (06:24→22:19)
[2021-04-17] MEDS: IBUPROFEN 400 MG TABLET (FP) PO PRN (06:25)
[2021-04-17] MEDS: HYDROCORTISONE 0.5% TOPICAL CREAM 30 GM TUBE TP SCH ×2 (10:39→22:19)
[2021-04-17] MEDS: PANTOPRAZOLE 20 MG TABLET PO SCH (10:40)
[2021-04-17] MEDS: PRENATAL VITAMINS W/ FOLIC ACID TABLET (FP) PO SCH (10:40)
[2021-04-17] MEDS: risperiDONE 2 MG TABLET PO SCH ×2 (10:40→22:19)
[2021-04-17] MEDS: CITALOPRAM HYDROBROMIDE 10 MG TABLET PO SCH (10:40)
[2021-04-17] MEDS: LURASIDONE HCL 20 MG TABLET PO SCH ×2 (10:42→22:19)
[2021-04-17 14:08] LABS: SARS-CoV-2 NAA Not Detected (Not Detected)
[2021-04-17] MEDS: THIAMINE HCL 100 MG TABLET (FP) PO SCH (22:19)
[2021-04-17] MEDS: MELATONIN 5 MG TABLETS PO SCH (22:19)
[2021-04-17] MEDS: traZODone HCL 50 MG TABLET (FP) PO SCH (22:19)
[2021-04-18] MEDS ORDERED: chlordiazePOXIDE HCL 10 MG CAPSULE PO PRN
[2021-04-18] MEDS: chlordiazePOXIDE HCL 10 MG CAPSULE PO SCH ×2 (06:32→18:16)
[2021-04-18] MEDS: hydrOXYzine PAMOATE 25 MG CAPSULE (FP) PO SCH ×5 (06:33→22:55)
[2021-04-18] MEDS: PRENATAL VITAMINS W/ FOLIC ACID TABLET (FP) PO SCH (10:27)
[2021-04-18] MEDS: risperiDONE 2 MG TABLET PO SCH ×2 (10:27→22:54)
[2021-04-18] MEDS: CITALOPRAM HYDROBROMIDE 10 MG TABLET PO SCH (10:27)
[2021-04-18] MEDS: PANTOPRAZOLE 20 MG TABLET PO SCH (10:28)
[2021-04-18] MEDS: LURASIDONE HCL 20 MG TABLET PO SCH ×2 (10:54→22:54)
[2021-04-18] MEDS: HYDROCORTISONE 0.5% TOPICAL CREAM 30 GM TUBE TP SCH ×2 (10:54→22:54)
[2021-04-18] MEDS: traZODone HCL 50 MG TABLET (FP) PO SCH (22:54)
[2021-04-18] MEDS: MELATONIN 5 MG TABLETS PO SCH (22:54)
[2021-04-18] MEDS: THIAMINE HCL 100 MG TABLET (FP) PO SCH (22:55)
[2021-04-19] MEDS ORDERED: chlordiazePOXIDE HCL 10 MG CAPSULE PO ONE (05:00)
[2021-04-19 07:47] VITALS: TEMP 96.8
[2021-04-19] MEDS: hydrOXYzine PAMOATE 25 MG CAPSULE (FP) PO SCH (08:11)
[2021-04-19 08:58] VITALS: BP 102/67; PULSE 83
== END 2021-04-19 09:00 | disposition home or self-care (01) | DRG 774 ==
LOC: YASAS 19:43 → Y3N 04-16 01:48
PROVIDERS: ADMIT Allergy & Immunology; ATTEND Allergy & Immunology
PROC: HZ2ZZZZ Detoxification Services for Substance Abuse Treatment (ICD-10-PCS; principal; 2021-04-16)
DX: F10.230 Alcohol dependence with withdrawal, uncomplicated (principal); F14.20 Cocaine dependence, uncomplicated; F12.20 Cannabis dependence, uncomplicated; F17.210 Nicotine dependence, cigarettes, uncomplicated; F31.77 Bipolar disorder, in partial remission, most recent episode mixed; F19.24 Other psychoactive substance dependence with psychoactive substance-induced mood disorder; F43.10 Post-traumatic stress disorder, unspecified; A53.0 Latent syphilis, unspecified as early or late; J43.0 Unilateral pulmonary emphysema [MacLeod's syndrome]; D57.3 Sickle-cell trait; G47.00 Insomnia, unspecified; K21.9 Gastro-esophageal reflux disease without esophagitis; M54.32 Sciatica, left side; M17.11 Unilateral primary osteoarthritis, right knee; Z62.810 Personal history of physical and sexual abuse in childhood; I69.854 Hemiplegia and hemiparesis following other cerebrovascular disease affecting left non-dominant side; Z86.19 Personal history of other infectious and parasitic diseases; Z91.410 Personal history of adult physical and sexual abuse; Z86.69 Personal history of other diseases of the nervous system and sense organs
CPT/HCPCS: 36415; 80053; 85027; 86593; 86780; 87811; C9803; U0003; U0005

== ENCOUNTER 2021-12-23 09:16 | Inpatient (IN) | payer OTHER ==
[2021-12-23 11:05] VITALS: BMI 22.3
[2021-12-23] MEDS ORDERED: ACETAMINOPHEN 325 MG TABLET (FP) PO PRN ×2 (12:10)
[2021-12-23] MEDS ORDERED: METHOCARBAMOL 500 MG TABLET PO PRN (12:10)
[2021-12-23] MEDS ORDERED: MAGNESIUM CITRATE 300 ML BOTTLE PO PRN (12:10)
[2021-12-23] MEDS ORDERED: BISMUTH SUBSALICYLATE 524 MG/30 ML PO PRN (12:10)
[2021-12-23] MEDS ORDERED: chlordiazePOXIDE HCL 25 MG CAPSULE PO PRN (12:10)
[2021-12-23] MEDS ORDERED: MAG HYDROX/AL HYDROX/SIMETH 30 ML UNIT-DOSE CUP PO PRN (12:10)
[2021-12-23] MEDS ORDERED: BENZOCAINE/MENTHOL (CHLORASEPTIC ) LOZENGE MM PRN (12:10)
[2021-12-23] MEDS ORDERED: IBUPROFEN 400 MG TABLET (FP) PO PRN (12:10)
[2021-12-23] MEDS ORDERED: NALOXONE HCL (KLOXXADO) 8 MG SPRAY NS PRN (12:10)
[2021-12-23] MEDS ORDERED: IBUPROFEN 600 MG TABLET (FP) PO PRN (12:10)
[2021-12-23] MEDS ORDERED: hydrOXYzine PAMOATE 25 MG CAPSULE (FP) PO PRN (12:10)
[2021-12-23] MEDS ORDERED: DICYCLOMINE HCL 10 MG CAPSULE PO PRN (12:10)
[2021-12-23] MEDS ORDERED: MAGNESIUM HYDROX 2400MG/30ML ORAL SUSPENSION 30 ML CUP PO PRN (12:10)
[2021-12-23] MEDS ORDERED: LOPERAMIDE HCL 2 MG CAPSULE PO PRN (12:10)
[2021-12-23] MEDS ORDERED: ONDANSETRON *ODT* 4 MG TABLET SL PRN (12:10)
[2021-12-23] MEDS: NICOTINE 10 MG CARTRIDGE (INHALER) IH PRN (13:14)
[2021-12-23] MEDS: PRENATAL VITAMINS W/ FOLIC ACID TABLET (FP) PO SCH (13:16)
[2021-12-23] MEDS ORDERED: ALBUTEROL SO4 HFA INHALER IH PRN (15:00)
[2021-12-23] MEDS: HYDROCORTISONE 1% TOPICAL CREAM 30 GM TUBE TP SCH ×2 (15:13→22:25)
[2021-12-23] MEDS: chlordiazePOXIDE HCL 25 MG CAPSULE PO SCH ×2 (17:48→22:25)
[2021-12-23] MEDS: THIAMINE HCL 100 MG TABLET (FP) PO SCH (22:25)
[2021-12-23] MEDS: MELATONIN 5 MG TABLETS PO SCH (22:25)
[2021-12-23] MEDS: risperiDONE 1 MG TABLET PO SCH (22:25)
[2021-12-24] MEDS: chlordiazePOXIDE HCL 25 MG CAPSULE PO SCH ×4 (06:10→22:16)
[2021-12-24] MEDS: PANTOPRAZOLE 20 MG TABLET PO SCH (10:16)
[2021-12-24] MEDS: risperiDONE 1 MG TABLET PO SCH ×2 (10:16→22:16)
[2021-12-24] MEDS: PRENATAL VITAMINS W/ FOLIC ACID TABLET (FP) PO SCH (10:16)
[2021-12-24] MEDS: HYDROCORTISONE 1% TOPICAL CREAM 30 GM TUBE TP SCH ×2 (10:20→22:18)
[2021-12-24] MEDS: CITALOPRAM HYDROBROMIDE 10 MG TABLET PO SCH (10:51)
[2021-12-24 11:22] LABS: ALBUMIN 3.3 g/dl (3.4-5.0); CALCIUM 9.6 mg/dL (8.5-10.1)
[2021-12-24 11:23] LABS: HEMATOCRIT 40.1 % (32.4-45.2); HEMOGLOBIN 13.2 GM/dL (10.7-15.3); MCH 29.4 pg (25.7-33.7); MEAN CELL VOLUME 89.2 fl (80-96); MEAN PLT VOLUME 7.2 fl (7.5-11.1); PLATELET COUNT 511 10^3/uL (134-434); RBC 4.49 M/mm3 (3.60-5.2); RDW 14.1 % (11.6-15.6); WHITE BLOOD COUNT 6.5 K/mm3 (4.0-10.0)
[2021-12-24 11:24] LABS: BLOOD UREA NITROGEN 10.1 mg/dL (7-18)
[2021-12-24 11:26] LABS: CREATININE 0.8 mg/dL (0.55-1.3)
[2021-12-24 11:28] LABS: BILIRUBIN,TOTAL 0.3 mg/dL (0.2-1); TOT PROT 6.9 g/dl (6.4-8.2)
[2021-12-24] MEDS: NICOTINE 10 MG CARTRIDGE (INHALER) IH PRN (22:14)
[2021-12-24] MEDS: THIAMINE HCL 100 MG TABLET (FP) PO SCH (22:15)
[2021-12-24] MEDS: MELATONIN 5 MG TABLETS PO SCH (22:15)
[2021-12-25] MEDS: chlordiazePOXIDE HCL 25 MG CAPSULE PO SCH ×4 (05:57→22:44)
[2021-12-25] MEDS: PRENATAL VITAMINS W/ FOLIC ACID TABLET (FP) PO SCH (10:57)
[2021-12-25] MEDS: CITALOPRAM HYDROBROMIDE 10 MG TABLET PO SCH (10:58)
[2021-12-25] MEDS: HYDROCORTISONE 1% TOPICAL CREAM 30 GM TUBE TP SCH ×2 (10:58→23:00)
[2021-12-25] MEDS: risperiDONE 1 MG TABLET PO SCH ×2 (10:58→22:44)
[2021-12-25] MEDS: PANTOPRAZOLE 20 MG TABLET PO SCH (10:58)
[2021-12-25] MEDS: THIAMINE HCL 100 MG TABLET (FP) PO SCH (22:44)
[2021-12-25] MEDS: MELATONIN 5 MG TABLETS PO SCH (22:44)
[2021-12-26] MEDS ORDERED: chlordiazePOXIDE HCL 10 MG CAPSULE PO PRN
[2021-12-26] MEDS: chlordiazePOXIDE HCL 10 MG CAPSULE PO SCH ×4 (05:17→22:31)
[2021-12-26] MEDS: PANTOPRAZOLE 20 MG TABLET PO SCH (10:33)
[2021-12-26] MEDS: CITALOPRAM HYDROBROMIDE 10 MG TABLET PO SCH (10:33)
[2021-12-26] MEDS: risperiDONE 1 MG TABLET PO SCH ×2 (10:33→22:31)
[2021-12-26] MEDS: PRENATAL VITAMINS W/ FOLIC ACID TABLET (FP) PO SCH (10:33)
[2021-12-26] MEDS: HYDROCORTISONE 1% TOPICAL CREAM 30 GM TUBE TP SCH ×2 (10:34→22:33)
[2021-12-26] MEDS ORDERED: risperiDONE 1 MG TABLET PO ONE (10:41)
[2021-12-26] MEDS ORDERED: risperiDONE 1 MG TABLET PO SCH (12:00)
[2021-12-26] MEDS: NICOTINE 10 MG CARTRIDGE (INHALER) IH PRN (17:53)
[2021-12-26] MEDS: THIAMINE HCL 100 MG TABLET (FP) PO SCH (22:31)
[2021-12-26] MEDS: MELATONIN 5 MG TABLETS PO SCH (22:31)
[2021-12-27] MEDS ORDERED: chlordiazePOXIDE HCL 10 MG CAPSULE PO SCH (05:00)
[2021-12-27 09:06] VITALS: BP 95/59; PULSE 86; RESP 17; TEMP 97.5
[2021-12-27] MEDS: CITALOPRAM HYDROBROMIDE 10 MG TABLET PO SCH (10:33)
[2021-12-27] MEDS: HYDROCORTISONE 1% TOPICAL CREAM 30 GM TUBE TP SCH (10:34)
[2021-12-27] MEDS: PANTOPRAZOLE 20 MG TABLET PO SCH (10:34)
[2021-12-27] MEDS: PRENATAL VITAMINS W/ FOLIC ACID TABLET (FP) PO SCH (10:34)
[2021-12-27] MEDS: risperiDONE 1 MG TABLET PO SCH (11:57)
[2021-12-28] MEDS ORDERED: chlordiazePOXIDE HCL 10 MG CAPSULE PO ONE (05:00)
== END 2021-12-27 11:58 | disposition home or self-care (01) | DRG 774 ==
LOC: YASAS 09:16 → Y3N 12:14
PROVIDERS: ADMIT Allergy & Immunology; ATTEND Surgery
PROC: HZ2ZZZZ Detoxification Services for Substance Abuse Treatment (ICD-10-PCS; principal; 2021-12-23)
DX: F10.230 Alcohol dependence with withdrawal, uncomplicated (principal); F14.20 Cocaine dependence, uncomplicated; F12.20 Cannabis dependence, uncomplicated; F17.213 Nicotine dependence, cigarettes, with withdrawal; F19.24 Other psychoactive substance dependence with psychoactive substance-induced mood disorder; F31.77 Bipolar disorder, in partial remission, most recent episode mixed; J43.0 Unilateral pulmonary emphysema [MacLeod's syndrome]; K21.9 Gastro-esophageal reflux disease without esophagitis; M54.50 Low back pain, unspecified; G89.29 Other chronic pain; Z86.69 Personal history of other diseases of the nervous system and sense organs; Z59.01 Sheltered homelessness; Z88.8 Allergy status to other drugs, medicaments and biological substances
CPT/HCPCS: 36415; 71046-TC-FY; 80053; 81025; 85027; 86593; 86780; 87811; C9803-CS; J2794; U0003; U0005

== ENCOUNTER 2022-03-16 17:16 | Inpatient (IN) | payer OTHER ==
[2022-03-16 18:00] VITALS: BMI 22.1
[2022-03-16] MEDS ORDERED: ALBUTEROL SO4 HFA INHALER IH PRN (19:43)
[2022-03-16] MEDS ORDERED: ACETAMINOPHEN 325 MG TABLET (FP) PO PRN ×2 (19:52)
[2022-03-16] MEDS ORDERED: IBUPROFEN 400 MG TABLET (FP) PO PRN (19:52)
[2022-03-16] MEDS ORDERED: LOPERAMIDE HCL 2 MG CAPSULE PO PRN (19:52)
[2022-03-16] MEDS ORDERED: guaiFENesin 200 MG/10 ML 10 ML UNIT-DOSE CUPS PO PRN (19:52)
[2022-03-16] MEDS ORDERED: BISMUTH SUBSALICYLATE 524 MG/30 ML PO PRN (19:52)
[2022-03-16] MEDS ORDERED: DICYCLOMINE HCL 10 MG CAPSULE PO PRN (19:52)
[2022-03-16] MEDS ORDERED: MAGNESIUM HYDROX 2400MG/30ML ORAL SUSPENSION 30 ML CUP PO PRN (19:52)
[2022-03-16] MEDS ORDERED: MAG HYDROX/AL HYDROX/SIMETH 30 ML UNIT-DOSE CUP PO PRN (19:52)
[2022-03-16] MEDS ORDERED: P-EPHED 60MG/TRIPROLIDI 2.5MG TABLET PO PRN (19:52)
[2022-03-16] MEDS ORDERED: POLYETHYLENE GLYCOL (HEALTHYLAX) 3350 17 GM PACKET PO PRN (19:52)
[2022-03-16] MEDS ORDERED: METHOCARBAMOL 500 MG TABLET PO PRN (19:52)
[2022-03-16] MEDS ORDERED: ONDANSETRON *ODT* 4 MG TABLET SL PRN (19:52)
[2022-03-16] MEDS ORDERED: IBUPROFEN 600 MG TABLET (FP) PO PRN (19:52)
[2022-03-16] MEDS ORDERED: BENZOCAINE/MENTHOL (CHLORASEPTIC ) LOZENGE MM PRN (19:52)
[2022-03-16] MEDS ORDERED: QUEtiapine FUMARATE 100 MG TABLET (FP) PO ONE (22:00)
[2022-03-16] MEDS ORDERED: risperiDONE 2 MG TABLET PO ONE (22:00)
[2022-03-16] MEDS: THIAMINE HCL 100 MG TABLET (FP) PO SCH (22:04)
[2022-03-17] MEDS: PRENATAL VITAMINS W/ FOLIC ACID TABLET (FP) PO SCH (09:52)
[2022-03-17] MEDS: PANTOPRAZOLE 20 MG TABLET PO SCH (09:52)
[2022-03-17 12:19] LABS: HEMATOCRIT 41.4 % (32.4-45.2); HEMOGLOBIN 13.8 GM/dL (10.7-15.3); MCHC 33.2 g/dl (32.0-36.0); MEAN CELL VOLUME 87.2 fl (80-96); MEAN PLT VOLUME 7.2 fl (7.5-11.1); PLATELET COUNT 486 10^3/uL (134-434); RBC 4.75 M/mm3 (3.60-5.2); WHITE BLOOD COUNT 6.7 K/mm3 (4.0-10.0)
[2022-03-17 12:55] LABS: CALCIUM 9.8 mg/dL (8.5-10.1)
[2022-03-17 12:56] LABS: ALBUMIN 3.8 g/dl (3.4-5.0); BLOOD UREA NITROGEN 21.4 mg/dL (7-18)
[2022-03-17 12:58] LABS: BILIRUBIN,TOTAL 0.4 mg/dL (0.2-1); CREATININE 0.8 mg/dL (0.55-1.3); TOT PROT 7.7 g/dl (6.4-8.2)
[2022-03-17] MEDS: chlordiazePOXIDE HCL 25 MG CAPSULE PO PRN (15:00)
[2022-03-17] MEDS: NICOTINE 10 MG CARTRIDGE (INHALER) IH PRN (15:02)
[2022-03-17] MEDS: chlordiazePOXIDE HCL 25 MG CAPSULE PO SCH ×2 (17:09→22:53)
[2022-03-17] MEDS ORDERED: QUEtiapine FUMARATE 100 MG TABLET (FP) PO SCH (22:00)
[2022-03-17] MEDS: risperiDONE 2 MG TABLET PO SCH (22:53)
[2022-03-17] MEDS: THIAMINE HCL 100 MG TABLET (FP) PO SCH (22:53)
[2022-03-17] MEDS: MELATONIN 5 MG TABLETS PO PRN (22:53)
[2022-03-18] MEDS: chlordiazePOXIDE HCL 25 MG CAPSULE PO SCH ×4 (06:04→22:20)
[2022-03-18] MEDS: CITALOPRAM HYDROBROMIDE 10 MG TABLET PO SCH (10:21)
[2022-03-18] MEDS: risperiDONE 2 MG TABLET PO SCH ×2 (10:21→20:23)
[2022-03-18] MEDS: PANTOPRAZOLE 20 MG TABLET PO SCH (10:21)
[2022-03-18] MEDS: PRENATAL VITAMINS W/ FOLIC ACID TABLET (FP) PO SCH (10:22)
[2022-03-18] MEDS: chlordiazePOXIDE HCL 25 MG CAPSULE PO PRN (12:18)
[2022-03-18] MEDS: NICOTINE 10 MG CARTRIDGE (INHALER) IH PRN (16:27)
[2022-03-18] MEDS: QUEtiapine FUMARATE 100 MG TABLET (FP) PO SCH (20:22)
[2022-03-18 20:59] VITALS: RESP 16
[2022-03-18] MEDS: MELATONIN 5 MG TABLETS PO PRN (22:20)
[2022-03-18] MEDS: THIAMINE HCL 100 MG TABLET (FP) PO SCH (22:20)
[2022-03-19] MEDS ORDERED: chlordiazePOXIDE HCL 10 MG CAPSULE PO PRN
[2022-03-19] MEDS: chlordiazePOXIDE HCL 10 MG CAPSULE PO SCH ×2 (06:08→11:12)
[2022-03-19 09:31] VITALS: BP 97/65; PULSE 92; TEMP 96.8
[2022-03-19] MEDS: CITALOPRAM HYDROBROMIDE 10 MG TABLET PO SCH (10:56)
[2022-03-19] MEDS: QUEtiapine FUMARATE 100 MG TABLET (FP) PO SCH (10:57)
[2022-03-19] MEDS: PANTOPRAZOLE 20 MG TABLET PO SCH (10:57)
[2022-03-19] MEDS: PRENATAL VITAMINS W/ FOLIC ACID TABLET (FP) PO SCH (10:57)
[2022-03-19] MEDS: risperiDONE 2 MG TABLET PO SCH (10:57)
[2022-03-20] MEDS ORDERED: chlordiazePOXIDE HCL 10 MG CAPSULE PO SCH (05:00)
[2022-03-21] MEDS ORDERED: chlordiazePOXIDE HCL 10 MG CAPSULE PO ONE (05:00)
== END 2022-03-19 10:15 | disposition home or self-care (01) | DRG 774 ==
LOC: YASAS 17:16 → Y6N 21:09
PROVIDERS: ADMIT Allergy & Immunology; ATTEND Surgery
PROC: HZ2ZZZZ Detoxification Services for Substance Abuse Treatment (ICD-10-PCS; principal; 2022-03-16)
DX: F10.230 Alcohol dependence with withdrawal, uncomplicated (principal); F14.20 Cocaine dependence, uncomplicated; F12.20 Cannabis dependence, uncomplicated; F17.210 Nicotine dependence, cigarettes, uncomplicated; F31.77 Bipolar disorder, in partial remission, most recent episode mixed; J43.0 Unilateral pulmonary emphysema [MacLeod's syndrome]; K21.9 Gastro-esophageal reflux disease without esophagitis; D57.3 Sickle-cell trait; M17.11 Unilateral primary osteoarthritis, right knee; M54.32 Sciatica, left side; I69.854 Hemiplegia and hemiparesis following other cerebrovascular disease affecting left non-dominant side; Z62.810 Personal history of physical and sexual abuse in childhood; Z91.410 Personal history of adult physical and sexual abuse; Z59.00 Homelessness unspecified
CPT/HCPCS: 36415; 80053; 81025; 85027; 86593; 86780; C9803-CS; U0003; U0005